=== PATIENT | male | born 1945 | race Caucasian/White ===

== ENCOUNTER 2020-10-06 08:57 | Outpatient (REF) | payer MEDICARE, SELFPAY ==
[2020-10-06 10:51] LABS: Anion Gap 15 (12-20); Blood Urea Nitrogen 19 mg/dL (9-16); Calcium 9.1 mg/dL (8.4-10.2); Carbon Dioxide 24 mmol/L (22-29); Chloride 108 mmol/L (96-108); Estimated Glomerular Filt Rate 41; Phosphorus 3.2 mg/dL (2.7-4.5); Potassium 4.5 mmol/L (3.3-5.1); Sodium 142 mmol/L (135-145)
[2020-10-06 11:17] LABS: Renal w Reflex Lab Use Only Order verified
[2020-10-07 12:22] LABS: Calcium (PTHI) 9.6 mg/dL (8.6-10.3); PTHI 64 pg/mL (14-64)
== END 2020-10-06 08:58 | disposition home or self-care (01) ==
LOC: HO.10HDL 08:57
PROVIDERS: Visit Provider Internal Medicine Nephrology
DX: R79.9 Abnormal finding of blood chemistry, unspecified (principal); I12.9 Hypertensive chronic kidney disease with stage 1 through stage 4 chronic kidney disease, or unspecified chronic kidney disease; N18.30 Chronic kidney disease, stage 3 unspecified
CPT/HCPCS: 36415; 80051; 82310; 82565; 83970; 84100; 84520

== ENCOUNTER 2021-06-04 08:56 | Outpatient (REF) | payer MEDICARE, SELFPAY ==
[2021-06-04 10:31] LABS: Creatinine Urine 118.61 mg/dL; Protein/Creatinine Ratio, Ur 0.83 (<0.2); Total Protein Urine Random 99 mg/dL (<12)
[2021-06-04 10:33] LABS: Anion Gap 13 (12-20); Blood Urea Nitrogen 20 mg/dL (9-16); Calcium 9.5 mg/dL (8.4-10.2); Carbon Dioxide 25 mmol/L (22-29); Chloride 108 mmol/L (96-108); Estimated Glomerular Filt Rate 35; Phosphorus 3.2 mg/dL (2.7-4.5); Potassium 4.2 mmol/L (3.3-5.1); Sodium 142 mmol/L (135-145)
[2021-06-04 14:19] LABS: Uric Acid 6.7 mg/dL (3.4-7.0)
[2021-06-05 16:02] LABS: Calcium (PTHI) 9.4 mg/dL (8.6-10.3); PTHI 60 pg/mL (14-64)
== END 2021-06-04 08:57 | disposition home or self-care (01) ==
LOC: HO.10HDL 08:56
PROVIDERS: Visit Provider Internal Medicine Nephrology
DX: N18.31 Chronic kidney disease, stage 3a (principal); E79.0 Hyperuricemia without signs of inflammatory arthritis and tophaceous disease
CPT/HCPCS: 36415; 80051; 82310; 82565; 83970; 84100; 84156; 84520; 84550

== ENCOUNTER 2021-06-16 10:19 | Outpatient (REF) | payer MEDICARE, SELFPAY ==
[2021-06-16 10:23] LABS: MANUAL DIFF FLAG NO
[2021-06-16 10:41] LABS: Basophils Absolute Auto 0.1 X10*3/uL (0.0-0.2); Eosinophils Absolute Auto 0.4 X10*3/uL (0.0-0.4); Eosinophils Percent Auto 6.2 % (0-4); Hematocrit 53.1 % (42.0-52.0); Hemoglobin 17.6 g/dl (14.0-18.0); Imm Gran Abs Auto 0.03 X10*3/uL (0.00-0.03); Imm Gran Pct Auto 0.4 % (0.0-0.4); Lymphocytes Absolute Auto 2.1 X10*3/uL (1.2-4.9); Lymphocytes Percent Auto 29.9 % (20-40); Mean Corpuscular HGB Conc 33.1 g/dl (31.0-36.0); Mean Corpuscular Hemoglobin 29.1 pg (27.0-33.0); Mean Corpuscular Volume 87.9 fL (80.0-98.0); Mean Platelet Volume 10.6 fL (9.4-12.4); Monocytes Absolute Auto 0.6 X10*3/uL (0.1-1.2); Monocytes Percent Auto 8.5 % (2-11); Neutrophils Absolute Auto 3.7 x10*3/uL (2.0-8.3); Platelet Count 291 X10*3/uL (160-400); Red Blood Count 6.04 X10*6/uL (4.60-5.80); Red Cell Distribution Width 14.2 % (11.0-16.0); White Blood Count 6.9 X10*3/uL (4.8-10.8)
[2021-06-16 11:00] LABS: Alanine Aminotransferase 20 U/L (0-40); Albumin Level 3.6 g/dL (3.5-5.0); Alkaline Phosphatase 75 U/L (39-117); Anion Gap 11 (12-20); Aspartate Amino Transferase 19 U/L (5-37); Blood Urea Nitrogen 19 mg/dL (9-16); Calcium 9.6 mg/dL (8.4-10.2); Carbon Dioxide 28 mmol/L (22-29); Chloride 108 mmol/L (96-108); Cholesterol 179 mg/dL; Estimated Glomerular Filt Rate 38; Glucose Fasting 90 mg/dL (60-99); HDL Cholesterol 44 mg/dL; LDL Cholesterol Calculated 117 mg/dl; Potassium 4.3 mmol/L (3.3-5.1); Sodium 143 mmol/L (135-145); Triglycerides 90 mg/dL
[2021-06-16 11:07] LABS: Appearance Urine CLEAR; Color Urine YELLOW; Glucose Urine UA NEG (NEG); Leukocyte Esterase Urine NEG (NEG); Nitrite Urine NEG (NEG); Specific Gravity - Urine 1.025 (1.005-1.025); Urine Blood NEG (NEG); Urine Ketones NEG (NEG); Urine Protein 2+ MG/DL (NEG-TRACE)
[2021-06-16 11:22] LABS: PSA,Total (Free>4and<10) 0.42 ng/mL (0.00-4.00)
[2021-06-16 11:28] LABS: Bacteria Urine TRACE /LPF; Mucus Urine 1+ /LPF; RBC Urine 0-2 /HPF (0); Squamous Epithelial Cell Urine 1+ /LPF; WBC Urine 0-2 /HPF (0-4)
== END 2021-06-16 10:20 | disposition home or self-care (01) ==
LOC: HO.LNP 10:19
PROVIDERS: Visit Provider Internal Medicine
DX: Z00.00 Encounter for general adult medical examination without abnormal findings (principal); Z12.5 Encounter for screening for malignant neoplasm of prostate; R79.89 Other specified abnormal findings of blood chemistry; I10 Essential (primary) hypertension
CPT/HCPCS: 80053; 80061; 81001; 81003; 84153; 85025

== ENCOUNTER 2021-12-08 10:01 | Outpatient (REF) | payer MEDICARE, SELFPAY ==
[2021-12-08 10:59] LABS: Anion Gap 10 (12-20); Blood Urea Nitrogen 15 mg/dL (9-16); Calcium 9.3 mg/dL (8.4-10.2); Carbon Dioxide 30 mmol/L (22-29); Chloride 107 mmol/L (96-108); Estimated Glomerular Filt Rate 40; Potassium 4.1 mmol/L (3.3-5.1); Sodium 143 mmol/L (135-145); Uric Acid 5.8 mg/dL (3.4-7.0)
== END 2021-12-08 10:02 | disposition home or self-care (01) ==
LOC: HO.10HDL 10:01
PROVIDERS: Visit Provider Internal Medicine Nephrology
DX: N18.31 Chronic kidney disease, stage 3a (principal)
CPT/HCPCS: 36415; 80051; 82310; 82565; 84520; 84550

== ENCOUNTER 2022-08-23 10:53 | Outpatient (REF) | payer MEDICARE, SELFPAY ==
[2022-08-23 11:00] LABS: MANUAL DIFF FLAG NO
[2022-08-23 11:29] LABS: Appearance Urine Clear; Color Urine Yellow; Glucose Urine UA Negative (Negative); Leukocyte Esterase Urine Negative (Negative); Nitrite Urine Negative (Negative); PH 6.5 (5.0-9.0); Specific Gravity - Urine 1.015 (1.005-1.025); UMIC TRIGGER UACC YES; Urine Blood Negative (Negative); Urine Ketones Negative (Negative); Urine Protein 300 (3+) mg/dL (Neg-Trace)
[2022-08-23 11:32] LABS: Bacteria Urine None Seen (None Seen); Hyaline Casts Urine 0-2 /LPF (0-2); RBC Urine 0-2 /HPF (0-2); Squamous Epithelial Cell Urine 0-2 /HPF (0-2); WBC Urine 0-5 /HPF (0-5)
[2022-08-23 12:16] LABS: Basophils Absolute Auto 0.1 X10*3/uL (0.0-0.2); Eosinophils Absolute Auto 0.6 X10*3/uL (0.0-0.4); Eosinophils Percent Auto 11.1 % (0-4); Hematocrit 49.9 % (42.0-52.0); Hemoglobin 16.4 g/dl (14.0-18.0); Imm Gran Abs Auto 0.02 X10*3/uL (0.00-0.03); Imm Gran Pct Auto 0.4 % (0.0-0.4); Lymphocytes Absolute Auto 1.8 X10*3/uL (1.2-4.9); Lymphocytes Percent Auto 33.8 % (20-40); Mean Corpuscular HGB Conc 32.9 g/dl (31.0-36.0); Mean Corpuscular Hemoglobin 29.3 pg (27.0-33.0); Mean Corpuscular Volume 89.1 fL (80.0-98.0); Mean Platelet Volume 11.3 fL (9.4-12.4); Monocytes Absolute Auto 0.9 X10*3/uL (0.1-1.2); Monocytes Percent Auto 16.8 % (2-11); Neutrophils Absolute Auto 1.9 x10*3/uL (2.0-8.3); Neutrophils Percent Auto 36.9 % (45-73); Platelet Count 219 X10*3/uL (160-400); Red Cell Distribution Width 15.5 % (11.0-16.0); White Blood Count 5.2 X10*3/uL (4.8-10.8)
[2022-08-23 12:25] LABS: Alanine Aminotransferase 20 U/L (0-40); Albumin Level 3.6 g/dL (3.5-5.0); Alkaline Phosphatase 65 U/L (39-117); Anion Gap 12 (12-20); Aspartate Amino Transferase 22 U/L (5-37); Bilirubin Total 0.7 mg/dL (0.0-1.0); Blood Urea Nitrogen 19 mg/dL (9-16); Carbon Dioxide 28 mmol/L (22-29); Chloride 107 mmol/L (96-108); Cholesterol 175 mg/dL; Estimated Glomerular Filt Rate 35; Glucose Fasting 100 mg/dL (60-99); HDL Cholesterol 38 mg/dL; LDL Cholesterol Calculated 119 mg/dl; Potassium 4.2 mmol/L (3.3-5.1); Sodium 143 mmol/L (135-145); Total Protein 5.7 g/dL (6.5-8.0); Triglycerides 92 mg/dL
[2022-08-23 12:32] LABS: PSA,Total (Free>4and<10) 0.41 ng/mL (0.00-4.00)
== END 2022-08-23 10:54 | disposition home or self-care (01) ==
LOC: HO.LNP 10:53
PROVIDERS: Visit Provider Internal Medicine
DX: Z00.00 Encounter for general adult medical examination without abnormal findings (principal); I12.9 Hypertensive chronic kidney disease with stage 1 through stage 4 chronic kidney disease, or unspecified chronic kidney disease; N18.2 Chronic kidney disease, stage 2 (mild); Z12.5 Encounter for screening for malignant neoplasm of prostate
CPT/HCPCS: 80053; 80061; 81001; 84153; 85025

== ENCOUNTER 2022-08-31 11:21 | Outpatient (REF) | payer MEDICARE, SELFPAY ==
--- NOTE | ~2022-08-31 | XR_ITS ---
EXAMINATION: XR CHEST CLINICAL INFORMATION: Wheezing. COMPARISON: None TECHNIQUE: 2 views of the chest were obtained. FINDINGS: The lungs are hyperinflated but clear. The heart size and pulmonary vascularity is normal. There is a right C7 cervical rib. Mild to moderate spondylosis dorsal spine is noted.. XR/XR chest 2V IMPRESSION: Hyperinflated lungs without acute process.
== END 2022-08-31 11:22 | disposition home or self-care (01) ==
LOC: HO.XRAY 11:21
PROVIDERS: PCP Internal Medicine; Visit Provider Internal Medicine
DX: R06.2 Wheezing (principal)
CPT/HCPCS: 71046

== ENCOUNTER 2022-08-31 15:58 | Outpatient (REF) | payer MEDICARE, SELFPAY ==
[2022-08-31 16:10] LABS: MANUAL DIFF FLAG NO
[2022-08-31 17:06] LABS: Basophils Absolute Auto 0.1 X10*3/uL (0.0-0.2); Basophils Percent Auto 0.9 % (0-2); Eosinophils Absolute Auto 0.5 X10*3/uL (0.0-0.4); Eosinophils Percent Auto 7.3 % (0-4); Hematocrit 49.5 % (42.0-52.0); Imm Gran Abs Auto 0.02 X10*3/uL (0.00-0.03); Imm Gran Pct Auto 0.3 % (0.0-0.4); Lymphocytes Percent Auto 27.3 % (20-40); Mean Corpuscular HGB Conc 32.3 g/dl (31.0-36.0); Mean Corpuscular Hemoglobin 28.7 pg (27.0-33.0); Mean Corpuscular Volume 88.9 fL (80.0-98.0); Mean Platelet Volume 11.1 fL (9.4-12.4); Monocytes Absolute Auto 0.7 X10*3/uL (0.1-1.2); Monocytes Percent Auto 9.3 % (2-11); Neutrophils Absolute Auto 4.1 x10*3/uL (2.0-8.3); Neutrophils Percent Auto 54.9 % (45-73); Platelet Count 267 X10*3/uL (160-400); Red Blood Count 5.57 X10*6/uL (4.60-5.80); Red Cell Distribution Width 15.1 % (11.0-16.0); White Blood Count 7.4 X10*3/uL (4.8-10.8)
== END 2022-08-31 15:59 | disposition home or self-care (01) ==
LOC: HO.LNP 15:58
PROVIDERS: PCP Internal Medicine; Visit Provider Internal Medicine
DX: R79.89 Other specified abnormal findings of blood chemistry (principal)
CPT/HCPCS: 85025

== ENCOUNTER 2022-12-15 09:14 | Outpatient (REF) | payer MEDICARE, SELFPAY ==
[2022-12-15 11:28] LABS: Anion Gap 12 (12-20); Blood Urea Nitrogen 19 mg/dL (9-16); Calcium 9.9 mg/dL (8.4-10.2); Carbon Dioxide 27 mmol/L (22-29); Chloride 108 mmol/L (96-108); Estimated Glomerular Filt Rate 40; Potassium 4.4 mmol/L (3.3-5.1); Sodium 143 mmol/L (135-145); Uric Acid 6.6 mg/dL (3.4-7.0)
== END 2022-12-15 09:15 | disposition home or self-care (01) ==
LOC: HO.10HDL 09:14
PROVIDERS: Visit Provider Internal Medicine Nephrology
DX: E79.0 Hyperuricemia without signs of inflammatory arthritis and tophaceous disease (principal); I12.9 Hypertensive chronic kidney disease with stage 1 through stage 4 chronic kidney disease, or unspecified chronic kidney disease; N18.31 Chronic kidney disease, stage 3a
CPT/HCPCS: 36415; 80051; 82310; 82565; 84520; 84550

== ENCOUNTER 2023-08-01 08:47 | Outpatient (REF) | payer MEDICARE, SELFPAY ==
[2023-08-01 11:17] LABS: Anion Gap 13 (12-20); Blood Urea Nitrogen 21 mg/dL (9-16); Calcium 9.5 mg/dL (8.4-10.2); Carbon Dioxide 28 mmol/L (22-29); Chloride 107 mmol/L (96-108); Estimated Glomerular Filt Rate 34; Potassium 4.2 mmol/L (3.3-5.1); Sodium 144 mmol/L (135-145)
== END 2023-08-01 08:48 | disposition home or self-care (01) ==
LOC: HO.10HDL 08:47
PROVIDERS: Referring Provider Internal Medicine Nephrology; Visit Provider Internal Medicine Nephrology
DX: N18.31 Chronic kidney disease, stage 3a (principal); I12.9 Hypertensive chronic kidney disease with stage 1 through stage 4 chronic kidney disease, or unspecified chronic kidney disease
CPT/HCPCS: 36415; 80051; 82310; 82565; 84520

== ENCOUNTER 2023-08-26 11:57 | Outpatient (REF) | payer MEDICARE, SELFPAY ==
[2023-08-26 12:10] LABS: MANUAL DIFF FLAG NO
[2023-08-26 13:20] LABS: Basophils Absolute Auto 0.1 X10*3/uL (0.0-0.2); Basophils Percent Auto 1.1 % (0-2); Eosinophils Absolute Auto 0.4 X10*3/uL (0.0-0.4); Eosinophils Percent Auto 6.1 % (0-4); Hematocrit 50.5 % (42.0-52.0); Hemoglobin 16.8 g/dl (14.0-18.0); Imm Gran Abs Auto 0.02 X10*3/uL (0.00-0.03); Imm Gran Pct Auto 0.3 % (0.0-0.4); Lymphocytes Absolute Auto 1.6 X10*3/uL (1.2-4.9); Lymphocytes Percent Auto 25.7 % (20-40); Mean Corpuscular HGB Conc 33.3 g/dl (31.0-36.0); Mean Corpuscular Hemoglobin 29.3 pg (27.0-33.0); Mean Corpuscular Volume 88.1 fL (80.0-98.0); Mean Platelet Volume 10.4 fL (9.4-12.4); Monocytes Absolute Auto 0.6 X10*3/uL (0.1-1.2); Monocytes Percent Auto 8.9 % (2-11); Neutrophils Absolute Auto 3.6 x10*3/uL (2.0-8.3); Neutrophils Percent Auto 57.9 % (45-73); Platelet Count 233 X10*3/uL (160-400); Red Blood Count 5.73 X10*6/uL (4.60-5.80); Red Cell Distribution Width 14.6 % (11.0-16.0); White Blood Count 6.3 X10*3/uL (4.8-10.8)
[2023-08-26 13:31] LABS: Appearance Urine Clear; Color Urine Yellow; Glucose Urine UA Negative (Negative); Leukocyte Esterase Urine Negative (Negative); Nitrite Urine Negative (Negative); PH 6.5 (5.0-9.0); Specific Gravity - Urine 1.015 (1.005-1.025); UMIC TRIGGER UACC YES; Urine Blood Negative (Negative); Urine Ketones Negative (Negative); Urine Protein 100 (2+) mg/dL (Neg-Trace)
[2023-08-26 13:34] LABS: Bacteria Urine None Seen (None Seen); Hyaline Casts Urine 0-2 /LPF (0-2); RBC Urine 0-2 /HPF (0-2); Squamous Epithelial Cell Urine 0-2 /HPF (0-2); WBC Urine 0-5 /HPF (0-5)
[2023-08-26 14:01] LABS: Alanine Aminotransferase 13 U/L (0-40); Albumin Level 3.5 g/dL (3.5-5.0); Alkaline Phosphatase 62 U/L (39-117); Anion Gap 11 (12-20); Aspartate Amino Transferase 17 U/L (5-37); Bilirubin Total 0.9 mg/dL (0.0-1.0); Blood Urea Nitrogen 19 mg/dL (9-16); Calcium 9.3 mg/dL (8.4-10.2); Carbon Dioxide 28 mmol/L (22-29); Chloride 110 mmol/L (96-108); Cholesterol 171 mg/dL (<200); Estimated Glomerular Filt Rate 40; Glucose Fasting 92 mg/dL (60-99); HDL Cholesterol 41 mg/dL (>40); LDL Cholesterol Calculated 116 mg/dL (<100); Potassium 4.5 mmol/L (3.3-5.1); Sodium 144 mmol/L (135-145); Total Protein 5.9 g/dL (6.5-8.0); Triglycerides 74 mg/dL (<150)
[2023-08-26 14:19] LABS: PSA,Total (Free>4and<10) 0.36 ng/mL (0.00-4.00)
== END 2023-08-26 11:58 | disposition home or self-care (01) ==
LOC: HO.LNP 11:57
PROVIDERS: Visit Provider Internal Medicine
DX: Z00.00 Encounter for general adult medical examination without abnormal findings (principal); Z12.5 Encounter for screening for malignant neoplasm of prostate; I12.9 Hypertensive chronic kidney disease with stage 1 through stage 4 chronic kidney disease, or unspecified chronic kidney disease; N18.2 Chronic kidney disease, stage 2 (mild)
CPT/HCPCS: 80053; 80061; 81001; 84153; 85025

== ENCOUNTER 2024-02-13 07:46 | Outpatient (REF) | payer MEDICARE, SELFPAY ==
[2024-02-13 10:36] LABS: MANUAL DIFF FLAG NO
[2024-02-13 10:45] LABS: Basophils Absolute Auto 0.1 X10*3/uL (0.0-0.2); Basophils Percent Auto 1.1 % (0-2); Eosinophils Absolute Auto 0.4 X10*3/uL (0.0-0.4); Eosinophils Percent Auto 5.9 % (0-4); Hematocrit 48.5 % (42.0-52.0); Hemoglobin 16.4 g/dl (14.0-18.0); Imm Gran Abs Auto 0.02 X10*3/uL (0.00-0.03); Imm Gran Pct Auto 0.3 % (0.0-0.4); Lymphocytes Absolute Auto 1.7 X10*3/uL (1.2-4.9); Lymphocytes Percent Auto 26.8 % (20-40); Mean Corpuscular HGB Conc 33.8 g/dl (31.0-36.0); Mean Corpuscular Hemoglobin 29.7 pg (27.0-33.0); Mean Corpuscular Volume 87.7 fL (80.0-98.0); Mean Platelet Volume 10.4 fL (9.4-12.4); Monocytes Absolute Auto 0.6 X10*3/uL (0.1-1.2); Monocytes Percent Auto 9.6 % (2-11); Neutrophils Absolute Auto 3.5 x10*3/uL (2.0-8.3); Neutrophils Percent Auto 56.3 % (45-73); Platelet Count 221 X10*3/uL (160-400); Red Blood Count 5.53 X10*6/uL (4.60-5.80); Red Cell Distribution Width 14.2 % (11.0-16.0); White Blood Count 6.3 X10*3/uL (4.8-10.8)
[2024-02-13 10:58] LABS: Appearance Urine Clear; Color Urine Yellow; Glucose Urine UA Negative (Negative); Leukocyte Esterase Urine Negative (Negative); Nitrite Urine Negative (Negative); Specific Gravity - Urine 1.015 (1.005-1.025); UMIC TRIGGER UA YES; Urine Blood Negative (Negative); Urine Ketones Negative (Negative); Urine Protein 100 (2+) mg/dL (Neg-Trace)
[2024-02-13 11:11] LABS: Bacteria Urine None Seen (None Seen); Hyaline Casts Urine 0-2 /LPF (0-2); RBC Urine 0-2 /HPF (0-2); Squamous Epithelial Cell Urine 0-2 /HPF (0-2); WBC Urine 0-5 /HPF (0-5)
[2024-02-13 11:23] LABS: Albumin Level 3.6 g/dL (3.5-5.0); Anion Gap 10 (12-20); Blood Urea Nitrogen 18 mg/dL (9-16); Calcium 9.6 mg/dL (8.4-10.2); Carbon Dioxide 27 mmol/L (22-29); Chloride 109 mmol/L (96-108); Estimated Glomerular Filt Rate 39; Magnesium 1.9 mg/dL (1.6-2.6); Sodium 142 mmol/L (135-145); Vitamin D 25-OH Total 46.4 ng/mL (>30)
[2024-02-13 11:24] LABS: Parathyroid Hormone Intact 104.6 pg/mL (8.7-77.1)
[2024-02-13 11:30] LABS: Creatinine Urine 107.17 mg/dL; Total Protein Urine Random 75 mg/dL (<12)
[2024-02-13 11:55] LABS: Microalbum/Creatinine Ratio Ur 504.8 ug/mg cr (<30)
== END 2024-02-13 07:47 | disposition home or self-care (01) ==
LOC: HO.10HDL 07:46
PROVIDERS: Visit Provider Internal Medicine Nephrology
DX: I12.9 Hypertensive chronic kidney disease with stage 1 through stage 4 chronic kidney disease, or unspecified chronic kidney disease (principal); N18.31 Chronic kidney disease, stage 3a
CPT/HCPCS: 36415; 80051; 81001; 82040; 82043; 82306; 82310; 82565; 82570; 83735; 83970; 84100; 84156; 84520; 85025

== ENCOUNTER 2024-09-04 10:27 | Outpatient (REF) | payer MEDICARE, SELFPAY ==
[2024-09-04 10:30] LABS: MANUAL DIFF FLAG NO
[2024-09-04 10:54] LABS: Appearance Urine Clear; Basophils Absolute Auto 0.1 X10*3/uL (0.0-0.2); Basophils Percent Auto 1.1 % (0-2); Color Urine Dark Yellow; Eosinophils Absolute Auto 0.4 X10*3/uL (0.0-0.4); Eosinophils Percent Auto 5.9 % (0-4); Glucose Urine UA Negative (Negative); Hematocrit 47.2 % (42.0-52.0); Hemoglobin 15.9 g/dl (14.0-18.0); Imm Gran Abs Auto 0.04 X10*3/uL (0.00-0.03); Imm Gran Pct Auto 0.6 % (0.0-0.4); Leukocyte Esterase Urine Negative (Negative); Lymphocytes Absolute Auto 1.6 X10*3/uL (1.2-4.9); Lymphocytes Percent Auto 24.4 % (20-40); Mean Corpuscular HGB Conc 33.7 g/dl (31.0-36.0); Mean Corpuscular Hemoglobin 30.2 pg (27.0-33.0); Mean Corpuscular Volume 89.6 fL (80.0-98.0); Mean Platelet Volume 10.1 fL (9.4-12.4); Monocytes Absolute Auto 0.6 X10*3/uL (0.1-1.2); Monocytes Percent Auto 9.5 % (2-11); Neutrophils Absolute Auto 3.8 x10*3/uL (2.0-8.3); Neutrophils Percent Auto 58.5 % (45-73); Nitrite Urine Negative (Negative); PH 5.5 (5.0-9.0); Platelet Count 262 X10*3/uL (160-400); Red Blood Count 5.27 X10*6/uL (4.60-5.80); Red Cell Distribution Width 14.6 % (11.0-16.0); UMIC TRIGGER UACC YES; Urine Blood Negative (Negative); Urine Ketones Negative (Negative); Urine Protein 100 (2+) mg/dL (Neg-Trace); White Blood Count 6.4 X10*3/uL (4.8-10.8)
[2024-09-04 11:00] LABS: Bacteria Urine None Seen (None Seen); Hyaline Casts Urine 0-2 /LPF (0-2); RBC Urine 0-2 /HPF (0-2); Squamous Epithelial Cell Urine 0-2 /HPF (0-2); WBC Urine 0-5 /HPF (0-5)
[2024-09-04 11:17] LABS: Alanine Aminotransferase 18 U/L (0-40); Albumin Level 3.3 g/dL (3.5-5.0); Alkaline Phosphatase 63 U/L (39-117); Anion Gap 10 (12-20); Aspartate Amino Transferase 22 U/L (5-37); Bilirubin Total 0.8 mg/dL (0.0-1.0); Blood Urea Nitrogen 19 mg/dL (9-16); Calcium 9.2 mg/dL (8.4-10.2); Carbon Dioxide 27 mmol/L (22-29); Chloride 112 mmol/L (96-108); Cholesterol 156 mg/dL (<200); Estimated Glomerular Filt Rate 41; Glucose Fasting 91 mg/dL (60-99); HDL Cholesterol 42 mg/dL (>40); LDL Cholesterol Calculated 102 mg/dL (<100); Potassium 4.3 mmol/L (3.3-5.1); Sodium 145 mmol/L (135-145); Triglycerides 64 mg/dL (<150)
[2024-09-04 11:26] LABS: PSA,Total (Free>4and<10) 0.46 ng/mL (0.00-4.00)
--- OUTSIDE RECORDS SUMMARY | 2024-09-04 12:29 | XMS_ITS | Patient Health Record ---
Author Organization Brandon Kim MD Address [address] [place], [place] [id number] Care Team Providers Care Computer Tech Name Role Phone Brandon Kim Primary Care Provider Allergies No Known Allergies Results Component Value Reference Range Notes Complete Blood Count Auto Di ff (Not yet reviewed by provider) Interpretation: Performing Lab:[facility], [address] [place] [phone] Notes/Report: White Blood Count 6.4 4.8-10.8 X10*3/uL Red Blood Count 5.27 4.60-5.80 X10*6/uL Hemoglobin 15.9 14.0-18.0 g/dl Hematocrit 47.2 42.0-52.0 % Mean Corpuscular Volume 89.6 80.0-98.0 fL Mean Corpuscular Hemoglobin 30.2 27.0-33.0 pg Mean Corpuscular HGB Conc 33.7 31.0-36.0 g/dl Red Cell Distribution Width 14.6 11.0-16.0 % Platelet Count 262 160-400 X10*3/uL Mean Platelet Volume 10.1 9.4-12.4 fL Neutrophils Percent Auto 58.5 45-73 % Imm Gran Pct Auto 0.6 0.0-0.4 % Lymphocytes Percent Auto 24.4 20-40 % Monocytes Percent Auto 9.5 2-11 % Eosinophils Percent Auto 5.9 0-4 % Basophils Percent Auto 1.1 0-2 % NRBC Pct Auto 0.0 0.0-0.2 /100WBC Neutrophils Absolute Auto 3.8 2.0-8.3 x10*3/u L Imm Gran Abs Auto 0.04 0.00-0.03 X10*3/uL Lymphocytes Absolute Auto 1.6 1.2-4.9 X10*3/u L Monocytes Absolute Auto 0.6 0.1-1.2 X10*3/uL Eosinophils Absolute Auto 0.4 0.0-0.4 X10*3/u L Basophils Absolute Auto 0.1 0.0-0.2 X10*3/uL NRBC Abs Auto 0.000 0.0-0.012 X10*3/uL Comprehensive [place]. Panel Fa st (Not yet reviewed by provider) Interpretation: Performing Lab:[facility], [address] [place] [phone] Notes/Report: Sodium 145 135-145 mmol/L Potassium 4.3 3.3-5.1 mmol/L Chloride 112 96-108 mmol/L Carbon Dioxide 27 22-29 mmol/L Anion Gap 10 12-20 Blood Urea Nitrogen 19 9-16 mg/dL Creatinine 1.63 0.5-1.4 mg/dL Estimated Glomerular Filt Rate 41 Chronic Kidney Disease: Estimated GFR < 60 mL/min/1.73m2 Severe Kidney Disease: Estimated GFR < 15 mL/min/1.73m2 Glucose Fasting 91 60-99 mg/dL Calcium 9.2 8.4-10.2 mg/dL Bilirubin Total 0.8 0.0-1.0 mg/dL Aspartate Amino Transferase 22 5-37 U/L Alanine Aminotransferase 18 0-40 U/L Total Protein 6.0 6.5-8.0 g/dL Albumin Level 3.3 3.5-5.0 g/dL Alkaline Phosphatase 63 39-117 U/L UA ClnCatch+Micro w/rflx Cul t (Not yet reviewed by provider) Interpretation: Performing Lab:[facility], [address] [place] [phone] Notes/Report: Urine, Clean Catch Color Urine Dark Yellow Appearance Urine Clear PH 5.5 5.0-9.0 Glucose Urine UA Negative Negative mg/dL Urine Blood Negative Negative Specific [place] - Urine 1.020 1.005-1.025 Urine Protein 100 (2+) Neg-Trace mg/dL Urine Ketones Negative Negative mg/dL Nitrite Urine Negative Negative Leukocyte Esterase Urine Negative Negative RBC Urine 0-2 0-2 /HPF WBC Urine 0-5 0-5 /HPF Squamous Epithelial Cell Urine 0-2 0-2 /HPF Bacteria Urine None Seen None Seen Hyaline Casts Urine 0-2 0-2 /LPF Lipid Panel Reviewed date:09/04/2024 12:28:44 PM Interpretation: Performing Lab:[facility], [address] [place] [phone] Notes/Report: Triglycerides 64 <150 mg/dL Desirable Triglyceride: less than 150 mg/dL Borderline High Triglyceride 150-199 mg/dL High Triglyceride: 200-499 mg/dL Very High Triglyceride: greater than or equal to 5OO mg/dL Cholesterol 156 <200 mg/dL Desirable Cholesterol: less than 200 mg/dL Borderline High Cholesterol: 200-239 mg/dL High Cholesterol: greater than 239 mg/dL LDL Cholesterol Calculated 102 <100 mg/dL Desirable LDL: less than 100 mg/dL Near Optimal/Above Optimal LDL: 110-129 mg/dL Borderline High LDL: 130-159 mg/dL High LDL: 160-189 mg/dL Very High LDL: greater than or equal to 190 mg/dL HDL Cholesterol 42 >40 mg/dL Desirable HDL: greater than 40 mg/dL Note: This HDL assay may give artificially low results in patients with liver disease. PSA,Total (Free>4and<10) Reviewed date:09/04/2024 12:24:21 PM Interpretation: Performing Lab:[facility], [address] [place] [phone] Notes/Report: PSA,Total (Free>4and<10) 0.46 0.00-4.00 ng/mL A Free PSA was not performed: The percentage of Free PSA can be used to enhance the differentiation of prostate cancer from benign prostatic disease in subjects whose PSA levels are between 4.0 and 10.0 ng/mL. For subjects whose PSA levels are below 4.0 or above 10.0 ng/mL, the risk of prostate cancer is determined on the basis of the PSA alone. Therefore the % Free PSA is recommended only for those subjects whose PSA levels are between 4.0 and 10.0 ng/mL. PSA methodology: [place] Alinity i Chemiluminescent Microparticle Immunoassay (CMIA) Reason For Referral Reason HIP PAIN, RIGHT Diagnosis 1 Hip pain, right (M25 .551) Referral Organization Brandon Kim MD Referring Provider First Name Brandon Referring Provider Last Name Julio Referring Provider Speciality Internal M edicine Referred Provider DIANNA MCCLELLAND ORTHOPCarter DICS Referred Provider Specialty Orthopedic S urgery General Notes Elif Perla 11:56:03 AM EDT > appt is to be with Minda Estevez Annette 03/05/2024 10:33:11 AM EDT > info faxed , Danae Goncalves 03/09/2024 09:27:50 AM EDT > APPT SCHEDULED FOR 03/12/24 AT 2PM FOR HIP EVALUATION Referral Priority Routine Referral Appointment Date 03/12/2024 Reason KNEE PAIN Diagnosis 1 Arthritis of knee (M 17.10) Referral Organization Brandon Kim MD Referring Provider First Name Brandon Referring Provider Last Name Julio Referring Provider Speciality Internal M edicine Referred Provider AXEL FELIXS Referred Provider [facility] General Notes Danae Goncalves 03/09/2024 09:29:51 AM EDT > APPT SCHEDULED FOR KNEE PAIN EVAL 04/16/24Ivanna Patti A 04/30/2024 02:43:15 PM EST > OFFICE NOTE RECD Referral Priority Routine Referral Appointment Date 04/16/2024 Medications Medication SIG (Take, Route, Frequency, Duration) Notes Start Date End Date Status Carvedilol 12.5 MG TAKE 1 TABLET BY TWICE A DAY WITH FOOD for 90 Active Albuterol Sulfate HFA 108 (90 Base) MCG/ACT 1 puff as needed Inhalation every 4 hrs for 30 days 08/31/2022 Not-Taking Allopurinol 100 MG 1 tablet Orally Once a day Active Indomethacin 50 MG TAKE ONE CAPSULE BY MOUTH 3 TIMES A DAY WITH FOOD for 10 Not-Taking traMADol HCl 50 MG 1 tablet as needed Orally every 8 hours as needed for 5 days 03/13/2019 Not-Taking Ibuprofen 200 MG 1 tablet with food o r milk as needed Orally Three times a day Not-Taking Immunizations Vaccine Route Administration Date Status Comme nts DECLINED, FLU Unknown 01/09/2013 Administered DECLINED, PNEUMO Unknown 01/09/2013 Administered Shingles IM Intramuscular 10/09/2015 Administered PPSV23 (Pnemovax) IM Intramuscular 01/14/2020 Administered SARS-COV-2 Moderna Unknown 08/20/2020 Administered SARS-COV-2 Moderna Unknown 09/17/2020 Administered SARS-COV-2 Moderna Unknown 04/30/2021 Administered Fluarix Quadrivalent IM Intramuscular 06/16/2021 Administe red TDaP Unknown 11/30/2021 Administered [facility] Influenza High Dose IM Intramuscular 03/07/2023 Administer ed PPSV23 (Pnemovax) Unknown 09/03/2014 Refused Flu Vaccine Unknown 09/03/2014 Refused Flu Vaccine Unknown 03/25/2015 Refused Fluarix Quadrivalent Unknown 03/30/2016 Refused PPSV23 (Pnemovax) Unknown 04/09/2016 Refused Fluarix Quadrivalent Unknown 04/19/2017 Refused Prevnar 13 Unknown 04/25/2017 Refused PPSV23 (Pnemovax) Unknown 10/24/2017 Refused Fluarix Quadrivalent Unknown 05/01/2018 Refused Fluarix Quadrivalent Unknown 05/14/2019 Refused PPSV23 (Pnemovax) Unknown 05/22/2019 Refused TDaP Unknown 05/22/2019 Refused Influenza High Dose Unknown 04/01/2020 Pending At [facility] Social History Tobacco Use: Social History Observation Description Date Details (start date - stop date) Never Smoker NA - NA Tobacco Use/Smoking Question Answer Notes Patient is a nonsmoker Additional Findings: Tobacco Non-User Cu rrent non-smoker, currently using no form of tobacco Alcohol Screen Question Answer Notes Did you have a drink contain ing alcohol in the past year? Yes How often did you have a dri nk containing alcohol in the past year? Monthly or less (1 point) How many drinks did you have on a typical day when you were drinking in the past year? 1 or 2 drinks (0 point) How often did you have 6 or more drinks on one occasion in the past year? 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) Active confirmed Problem 616674878 History of gout (Z87.39) Active confirmed Problem 110019953 Chronic renal failure, stage 2 (mild) (N18.2) Active confirmed Problem 085543455 Arthritis of kne e (M17.10) Active confirmed Vital Signs Blood pressure diastolic 100 mm Hg 02/28/2024 khoi ght s up 3 pounds since 09-02-23 Height 71.5 in 02/28/2024 weight s up 3 p ounds since 09-02-23 Blood pressure systolic 148 mm Hg 02/28/2024 weig ht s up 3 pounds since 09-02-23 Weight 245 lbs 02/28/2024 weight s up 3 p ounds since 09-02-23 BMI 33.69 kg/m2 02/28/2024 weight s up 3 p ounds since 09-02-23 Encounters Encounter Location Date Provider Diagnosis Brandon Kim MD [address] [place] [address] Drive [address] [place] [id number] 09/03/2024 Brandon Kim Blood tests for routine general physical examination Z00.00 ; Essential hypertension I10 and Chronic renal failure, stage 2 (mild) N18.2 Brandon Kim MD [address] [place] [address] Drive [address] [place] [id number] 02/28/2024 Brandon Kim Arthritis of knee M17.10 ; Essential hypertension I10 ; Hip pain, right M25.551 ; Gout M10.9 and Chronic renal failure, stage 2 (mild) N18.2 Assessments Encounter Date Diagnosis (ICD Code) Assessment Notes Treatment Notes Treatment Clinical Notes Section Notes 09/03/2024 Blood tests for routine general physical examination (ICD-10 - Z00.00) 02/28/2024 Arthritis of knee (ICD-10 - M17.10) referral to dr mercado for knee and hip evaluation 02/28/2024 Essential hypertension (ICD-10 - I10) doing well. is a little high today but his readings at the [facility] have been good 09/03/2024 Essential hypertension (ICD-10 - I10) 02/28/2024 Hip pain, right (ICD-10 - M25.551) advised to see Ortho 09/03/2024 Chronic renal failure, stage 2 (mild) (ICD-10 - N18.2) 02/28/2024 Gout (ICD-10 - M10.9) has been doing great on allopurinal, will continue current regiment/ have once again explained that he should never stop and restart allopurinol 02/28/2024 Chronic renal failure, stage 2 (mild) (ICD-10 - N18.2) doing well with stable function Plan Of Treatment Pending Test Test Name Order Date Electrocardiogram (EKG) 04/09/2016 Electrocardiogram (EKG) 05/05/2018 Electrocardiogram (EKG) 04/01/2015 XR CHEST 2 VIEW PA & LAT 08/31/2022 Complete Blood Count Auto Diff 5 Comprehensive [place]. Panel Fast 5 UA ClnCatch+Micro w/rflx Cult 09/03/2024 Next Appt Details Provider Name:Brandonseth Antonio ier, 09/06/2024 11:00:00 AM, [address] [facility], [address], [place], [place], [id number], Insurance Providers Payer Name Payer Address Payer Phone Subscriber Number Group Number Insured Name Patient Relationship to Insured Coverage Start Date Coverage End Date [employer] [facility] [address] [place] [phone] [id number] [place] i Self - patient is the insured MEDICARE [employer] [address] [place] [address] [id number] [place]cho [place] i Self - patient is the insured Medical (General) History Medical History History ICD Code elevated cr of 1.6 since 2002 colonoscopy 06/25/13 - repeat 10 years ( Dr. Bang) Hx - arthritis of foot
--- OUTSIDE RECORDS SUMMARY | 2024-09-04 12:29 | XMS_ITS ---
Author Organization Brandon Kim MD Address [address] [place], [place] [phone] Care Team Providers Care Jacquard Card Cutter Name Role Phone Brandon Kim Primary Care Provider Results Component Value Reference Range Notes Complete Blood Count Auto Di ff (Not yet reviewed by provider) Interpretation: Performing Lab:[facility], [address] [place] [phone] Notes/Report: White Blood Count 6.4 4.8-10.8 X10*3/uL [...] NRBC Abs Auto 0.000 0.0-0.012 X10*3/uL Comprehensive [place]. Panel Fa st (Not yet reviewed by provider) Interpretation: Performing Lab:[facility], [address] [place] [address] Notes/Report: Sodium 145 135-145 mmol/L Potassium 4.3 [...] (Not yet reviewed by provider) Interpretation: Performing Lab:[facility], [address] [place] [phone] Notes/Report: Urine, Clean Catch Color Urine Dark Yellow Appearance Urine Clear PH 5.5 5.0-9.0 Glucose Urine UA Negative Negative mg/dL Urine Blood Negative Negative Specific [place] - Urine 1.020 1.005-1.025 Urine Protein 100 (2+) Neg-Trace mg/dL Urine Ketones Negative Negative mg/dL Nitrite Urine Negative Negative Leukocyte Esterase Urine Negative Negative RBC Urine 0-2 0-2 /HPF WBC Urine 0-5 0-5 /HPF Squamous Epithelial Cell Urine 0-2 0-2 /HPF Bacteria Urine None Seen None Seen Hyaline Casts Urine 0-2 0-2 /LPF Lipid Panel Reviewed date:09/04/2024 12:28:44 PM Interpretation: Performing Lab:[facility], [address] [place] [phone] Notes/Report: Triglycerides 64 <150 mg/dL Desirable Triglyceride: [...] (Free>4and<10) Reviewed date:09/04/2024 12:24:21 PM Interpretation: Performing Lab:[facility], [address] [place] [phone] Notes/Report: PSA,Total (Free>4and<10) 0.46 0.00-4.00 ng/mL A [...] [facility] Alinity i Chemiluminescent Microparticle Immunoassay (CMIA) REASON FOR VISIT yearly fasting labs Encounters Encounter Location Date Provider Diagnosis Brandon Kim MD [address] [place] [address] [address] [place], [place] [phone] 09/03/2024 Brandon Kim Blood tests for routine general physical examination Z00.00 ; Essential hypertension I10 and Chronic renal failure, stage 2 (mild) N18.2 Assessments Encounter Date Diagnosis (ICD Code) Assessment Notes Treatment Notes Treatment Clinical Notes Section Notes 09/03/2024 Blood tests for routine general physical examination (ICD-10 - Z00.00) 09/03/2024 Essential hypertension (ICD-10 - I10) 09/03/2024 Chronic renal failure, stage 2 (mild) (ICD-10 - N18.2) Plan Of Treatment Pending Test Test Name Order Date Complete Blood Count Auto Diff 5 Comprehensive [place]. Panel Fast 5 UA ClnCatch+Micro w/rflx Cult 09/03/2024 Next Appt Details Provider Name:Brandon Antonio ier, 09/06/2024 11:00:00 AM, [address] [facility], [address], [place], [place], [phone], Progress Notes * Poncho PATRICIADOB:[birth year] (79 yo M)Acc No.[id number]:09/03/2024 Progress Note Patient:?Poncho PATRICIA Provider:?Brandon Kim MD :1945???Age:79 Y???Sex:Male Yogesh e:09/03/2024 Address:[address] [place], [place] [phone] Subjective: * Chief Complaints: * ???1. Yearly fasting labs. * Medical History:? Objective: * Vitals:? Assessment: * Assessment: 1.?Blood tests for routine g eneral physical examination - Z00.00 (Primary)???2.?Essential hypertension - I10???3.?Chronic renal failure, stage 2 (mild) - N18.2??? Plan: * Treatment: 2.?Essential hypertension?LAB: Complete Blood Count Auto Diff (Collection Date & Time - 09/04/2024 07:30 AM) ?LAB: Comprehensive [place]. Panel Fast (Collection Date & Time - 09/04/2024 07:30 AM) ?LAB: UA ClnCatch+Micro w/rflx Cult (Collection Date & Time - 09/04/2024 07:30 AM) ?LAB: Lipid Panel (Collection Date & Time - 09/04/2024 07:30 AM) ?LAB: PSA,Total (Free>4and<10) (Collection Date & Time - 09/04/2024 07:30 AM) 3.?Chronic renal failure, st age 2 (mild)?LAB: Complete Blood Count Auto Diff (Collection Date & Time - 09/04/2024 07:30 AM) ?LAB: Comprehensive [place]. Panel Fast (Collection Date & Time - 09/04/2024 07:30 AM) ?LAB: UA ClnCatch+Micro w/rflx Cult (Collection Date & Time - 09/04/2024 07:30 AM) ?LAB: Lipid Panel (Collection Date & Time - 09/04/2024 07:30 AM) ?LAB: PSA,Total (Free>4and<10) (Collection Date & Time - 09/04/2024 07:30 AM) * Procedure Codes:?63817 VENIP UNCT, ROUTINE* * * The named appointment provid er may or may not be the originator of this progress note, and it is not deemed complete until electronically signed by the appointment provider. Sign off status: Pending * Provider:?Brandon Kim MD Date:?0 09/03/2024 Generated for Julio avendano/Jolene/eTransmitting on:?09/04/2024 12:29 PM EDT
--- OUTSIDE RECORDS SUMMARY | 2024-09-04 12:29 | XMS_ITS ---
Author Organization Brandon Kim MD Address [address] [place], [place] [id number] Care Team Providers Care Building Principal Name Role Phone Brandon Kim Primary Care Provider [phone] Allergies No Known Allergies Reason For Referral Reason HIP PAIN, RIGHT Diagnosis 1 Hip pain, right (M25 .551) Referral Organization Brandon Kim MD Referring Provider First Name Brandon Referring Provider Last Name Julio Referring Provider Speciality Internal M edicine Referred Provider AXEL FELIX Referred Provider Specialty Orthopedic S urgery General Notes Elif Perla 11:56:03 AM EDT > appt is to be with Minda Estevez Annette 03/05/2024 10:33:11 AM EDT > info faxed , Danae Goncalves 03/09/2024 09:27:50 AM EDT > APPT SCHEDULED FOR 03/12/24 AT 2PM FOR HIP EVALUATION Referral Priority Routine Referral Appointment Date 03/12/2024 REASON FOR VISIT 6 month, c/o bilateral knee pain and right hip pain Medications Medication SIG (Take, Route, Frequency, Duration) Notes Start Date End Date Status Albuterol Sulfate HFA 108 (90 Base) MCG/ACT [...] needed Orally Three times a day Not-Taking Carvedilol 12.5 MG TAKE 1 TABLET BY LUCY TH TWICE A DAY WITH FOOD Active Vital Signs Blood pressure systolic 148 mm Hg 02/28/20 24 Blood pressure diastolic 100 mm Hg 024 Height 71.5 in 02/28/2024 Weight 245 lbs 02/28/2024 BMI 33.69 kg/m2 02/28/2024 weight s up 3 pounds since Encounters Encounter Location Date Provider Diagnosis Brandon Kim MD [address] [place] [address] Drive [address] [place], [place] [id number] 02/28/2024 Brandon Kim Arthritis of knee M17.10 ; Essential hypertension I10 ; Hip pain, right M25.551 ; Gout M10.9 and Chronic renal failure, stage 2 (mild) N18.2 Assessments Encounter Date Diagnosis (ICD Code) Assessment Notes Treatment Notes Treatment Clinical Notes Section Notes 02/28/2024 Arthritis of knee (ICD-10 - M17.10) referral to dr mercado for knee and hip evaluation 02/28/2024 Essential hypertension (ICD-10 - I10) doing well. is a little high today but his readings at the [facility] have been good 02/28/2024 Hip pain, right (ICD-10 - M25.551) advised to see Ortho 02/28/2024 Gout (ICD-10 - M10.9) has been doing great on allopurinal, will continue current regiment/ have once again explained that he should never stop and restart allopurinol 02/28/2024 Chronic renal failure, stage 2 (mild) (ICD-10 - N18.2) doing well with stable function Plan Of Treatment Medication Medication Name Sig Start Date Stop Date Notes Allopurinol 100 MG 1 tablet Orally Once a day Carvedilol 12.5 MG TAKE 1 TABLET BY LUCY TH TWICE A DAY WITH FOOD Treatment Notes Assessment Notes Arthritis of knee referral to dr emma cantu for knee and hip evaluation Essential hypertension doing well. is a little high today but his readings at the [facility] have been good Hip pain, right advised to see Ortho Gout has been doing great on allopurinal, will continue current regiment/ have once again explained that he should never stop and restart allopurinol Chronic renal failure, stage 2 (mild) do ing well with stable function Referrals Referral Date Details 02/28/2024 02/28/2024, HIP PAIN , RIGHT, [facility] Next Appt Details Provider Name:Brandon Ocampo Arlenelennie ier, 09/06/2024 11:00:00 AM, [address], [address], [place], [phone], Progress Notes * BABS Poncho MeeksDOB:[birth year] (79 yo M)Acc No.[id number]:02/28/2024 Progress Notes Patient:?Babs Poncho Jeanna Provider:?Brandon Kim MD :1945???Age:79 Y???Sex:Male Yogesh e:02/28/2024 Address:[address] [place], [place] [phone] Subjective: * Chief Complaints: * ???6 monthC/o bilateral knee pain and right hip pain * HPI: ???Symptom(s):? patient is a 79 yo male here for 6 month follow up visit for bp. when standing and when he first gets up hip is painful. * ROS:?General/Constitutional:?Denies?Chills.?Denies?Fatigue.?Denies?Fever.?Denies?Headache.?ENT:?Patient denies?decreased sense of smell , any loss of taste , sore throat.?Denies?Sore throat.?Respiratory:?Denies?Cough.?Denies?Shortness of breath at rest.?Denies?Shortness of breath with exertion.?Gastrointestinal:?Denies?Diarrhea.?Denies?Nausea.?Musculoskeletal:?Patient denies?muscle aches.?Peripheral Vascular:?Patient denies?red and blue toes.? * Medical History:? * Surgical History:? * Hospitalization/Major Diagno stic Procedure:? * Medications:?TakingAllopurin ol 100 MG Tablet 1 tablet Orally Once a dayCarvedilol 12.5 MG Tablet TAKE 1 TABLET BY MOUTH TWICE A DAY WITH FOOD Taking Allopurinol 100 MG Tablet 1 tablet Orally Once a dayTaking Carvedilol 12.5 MG Tablet TAKE 1 TABLET BY MOUTH TWICE A DAY WITH FOOD Not-Taking/PRNAlbuterol Sulfate HFA 108 (90 Base) MCG/ACT Aerosol Solution 1 puff as needed Inhalation every 4 hrsIbuprofen 200 MG Tablet 1 tablet with food or milk as needed Orally Three times a daytraMADol HCl 50 MG Tablet 1 tablet as needed Orally every 8 hours as neededIndomethacin 50 MG Capsule TAKE ONE CAPSULE BY MOUTH 3 TIMES A DAY WITH FOOD Medication List reviewed and reconciled with the patientNot-Taking/PRN Albuterol Sulfate HFA 108 (90 Base) MCG/ACT Aerosol Solution 1 puff as needed Inhalation every 4 hrsNot-Taking/PRN Ibuprofen 200 MG Tablet 1 tablet with food or milk as needed Orally Three times a dayNot- Taking/PRN traMADol HCl 50 MG Tablet 1 tablet as needed Orally every 8 hours as neededNot-Taking/PRN Indomethacin 50 MG Capsule TAKE ONE CAPSULE BY MOUTH 3 TIMES A DAY WITH FOOD Medication List reviewed and reconciled with the patient * Allergies:?N.K.D.A.yes[Aller gies Verified] Objective: * Vitals:?Ht: 71.5, Wt:245, BM I:33.69, BP:148/100, Repeat BP:120/90 weight s up 3 pounds since 09-02-23. * Examination: ???General Examination: ?GENERAL APPEARANCE:? alert, well hydrated, in no distress , male.?HEAD:? normocephalic.?SKIN:? good turgor.?HEART:? regular rate and rhythm, no murmurs, rubs, gallops.?LUNGS:? no wheezes, rales, rhonchi, good air movement, clear to auscultation bilaterally.? Assessment: * Assessment: 1.?Essential hypertension - I10 (Primary)?2.?Arthritis of knee - M17.10?3.?Hip pain, right - M25.551?4.?Gout - M10.9?5.?Chronic renal failure, stage 2 (mild) - N18.2? Plan: * Treatment: 2.?Arthritis of knee? Notes: referral to dr mercado for knee and hip evaluation? Referral To:[facility]Orthopedic Surgery ?Reason:bilateral knee arthritis and right hip evaluation 3.?Hip pain, right? Notes: advised to see Ortho?? 4.?Gout? Continue Allopurinol Tablet, 100 MG, 1 tablet, Orally, Once a day.?? Notes: has been doing great on allopurinal, will continue current regiment/ have once again explained that he should never stop and restart allopurinol?? 5.?Chronic renal failure, st age 2 (mild)? Notes: doing well with stable function?? * Procedure Codes:? * * Sign off status: Completed true * Provider:?Brandon Kim MD Date:?0 02/28/2024 Generated for Julio avendano/Jolene/eTransmitting on:?09/04/2024 12:29 PM EDT History and Physical Notes * HPI (History of Present Illness) Category Sub-Category Detail Notes Category Not es Symptom(s) patient is a 79 yo male here for 6 month follow up visit for bp. when standing and when he first gets up hip is painful. Examination Category Sub-Category Detail Notes Category Not es General Examination GENERAL APPEARANCE: alert, w ell hydrated, in no distress , male HEAD: normocephalic HEART: regular rate and rhy thm, no murmurs, rubs, gallops LUNGS: no wheezes, rales, r honchi, good air movement, clear to auscultation bilaterally SKIN: good turgor Consultation Request Notes Referral Date Referring Provider Referred Provider Not es 02/28/2024 Brandon Kim, ORTHOPEDICS HIP PAIN, RIGHT
--- OUTSIDE RECORDS SUMMARY | 2024-09-04 12:29 | XMS_ITS | Clinical Summary ---
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 Take with meals. 10/22/2021 Active allopurinol (ZYLOPRIM) 100 MG tablet TAKE 1 TABLET BY MOUTH 1 TIME EACH DAY. 90 tablet 2 05/07/2024 Active Active Problems Problem Noted Date Diagnosed Date Stage 3b chronic kidney disease 02/20/2024 Adenoma of rectum 12/16/2021 Arthritis of knee 12/16/2021 Essential hypertension 12/16/2021 H/O: gout 12/16/2021 Blood chemistry outside reference range 10/09/19 Stage 3a chronic kidney disease 10/08/2020 Hypertensive renal disease 10/08/2020 Hyperuricemia 10/08/2020 Immunizations Name Administration Dates Next Due Influenza (IM) Preservative Free 06/16/2021 Moderna SARS-COV-2 04/30/2021,09/17/2020, 021 Pneumococcal Polysaccharide 01/14/2020 Tdap 11/30/2021 Zoster 10/09/2015 Family History Medical History Relation Comments Kidney disease Father Cancer Mother Heart disease Mother Hypertension Mother Relation Status Comments Father Alive Mother Social History Tobacco Use Types Packs/Day Years Used Date Smoking Tobacco: Never Smokeless Tobacco: Never Tobacco Cessation:Counseling Given: Not Answered Alcohol Use Standard Drinks/Week Comments Yes 0 (1 standard drink = 0.6 oz pure alcohol) Alcoholic Drinks/day: Occasional social drink Sex and Gender Information Value Date Recorded Sex Assigned at Not on file Legal Sex Male 4:54 PM EST Gender Identity Not on file Sexual Orientation Not on file Last Filed Vital Signs Vital Sign Reading Time Taken Comments Blood Pressure 134/64 02/20/2024 1:35 PM EDT Pulse 77 02/20/2024 1:35 PM EDT Temperature - - Respiratory Rate - - Oxygen Saturation 98% 02/20/2024 1:35 PM EDT Inhaled Oxygen Concentration - - Weight 106 kg (233 lb 3.2 oz) 02/20/2024 1:35 PM EDT Height 182.9 cm (6') 03/19/2020 12:00 PM EDT Body Mass Index 31.63 03/19/2020 12:00 PM EDT Plan of Treatment Upcoming Encounters Date Type Department Care Team (Late st Contact Info) Description 11/22/2024 1:45 PM EDT Office Visit [facility] [address] [place] [phone] Thai Eli MD [address] [facility] [address] [place] [address] Health Maintenance Due Date Last Done Comments Pneumococcal Vaccine: 65+ Years (2 of 2 - PCV) 01/13/2021 01/14/2020 Influenza Vaccine (#1) 2024 3, 06/16/2021 Hepatitis B Vaccine Aged Out No longe r eligible based on patient's age to complete this topic Insurance [facility] Care Teams Deli Bak[employer] Clerk Relationship Specialty Start Date End Date Brandon Kim MD [address] [place] [address] [id number] [place], [place] PCP - General 07/07/20
--- OUTSIDE RECORDS SUMMARY | 2024-09-04 12:30 | XMS_ITS ---
Author Organization Brandon Kim MD Address [address] [place], [place] [id number] Care Team Providers Care Photography Assistant Name Role Phone Brandon Kim Primary Care Provider Allergies No Known Allergies Results Component Value Reference Range Notes Occult Blood, Stool, Guaiac Reviewed date:09/02/2023 12:30:01 PM Interpretation:Negative Performing Lab: Notes/Report: Negative Occult Blood, Stool, Guaiac Neg REASON FOR VISIT annual visit, No Covid symptoms Medications Medication SIG (Take, Route, Frequency, Duration) Notes Start Date End Date Status Carvedilol 12.5 MG TAKE 1 TABLET BY LUCY TH TWICE A DAY WITH FOOD Active Indomethacin 50 MG TAKE ONE CAPSULE BY MOUTH 3 TIMES A DAY WITH FOOD for 10 Not-Taking traMADol HCl 50 MG 1 tablet as needed Orally every 8 hours as needed for 5 days 03/13/2019 Not-Taking Ibuprofen 200 MG 1 tablet with food o r milk as needed Orally Three times a day Not-Taking Allopurinol 100 MG 1 tablet Orally Once a day Active Albuterol Sulfate HFA 108 (90 Base) MCG/ACT 1 puff as needed Inhalation every 4 hrs for 30 days 08/31/2022 Not-Taking Social History Tobacco Use: Social History Observation [...] Never (0 point) Points 1 Interpretation Negative Vital Signs Blood pressure systolic 156 mm Hg 09/02/19 24 Blood pressure diastolic 84 mm Hg 024 Height 71.5 in 09/02/2023 Weight 242 lbs 09/02/2023 BMI 33.28 kg/m2 09/02/2023 weight is up 9 pounds since 03-07-23 Encounters Encounter Location Date Provider Diagnosis Brandon Kim MD [address] [place] [address] Drive [address] [place], [place] [phone] 09/02/2023 Brandon Kim Arthritis of knee M17.10 ; Annual physical exam Z00.00 ; Essential hypertension I10 ; Chronic renal failure, stage 2 (mild) N18.2 ; Colon cancer screening Z12.11 and Depression screening Z13.31 Assessments Encounter Date Diagnosis (ICD Code) Assessment Notes Treatment Notes Treatment Clinical Notes Section Notes 09/02/2023 Arthritis of knee (ICD-10 - M17.10) advised to consider ortho/ patient wants to set this up his self 09/02/2023 Annual physical exam (ICD-10 - Z00.00) labs reviewed and discussed with patient 09/02/2023 Essential hypertension (ICD-10 - I10) doing well on meds, will continue current regiment 09/02/2023 Chronic renal failure, stage 2 (mild) (ICD-10 - N18.2) stable followed by nephrology 09/02/2023 Colon cancer screening (ICD-10 - Z12.11) guaiac negative 09/02/2023 Depression screening (ICD-10 - Z13.31) negative screen Plan Of Treatment Medication Medication Name Sig Start Date Stop Date Notes Carvedilol 12.5 MG TAKE 1 TABLET BY LUCY TH TWICE A DAY WITH FOOD Treatment Notes Assessment Notes Arthritis of knee advised to consider ortho/ patient wants to set this up his self Annual physical exam labs reviewed and d iscussed with patient Essential hypertension doing well on med s, will continue current regiment Chronic renal failure, stage 2 (mild) st able followed by nephrology Colon cancer screening guaiac negative Depression screening negative screen Next Appt Details Follow Up: 6 Months, Reason: Provider Name:Brandon bauerr, 09/06/2024 11:00:00 AM, [address], [address], [place], [place], [phone], Progress Notes * MADIPoncho CARUSODOB:[birth year] (78 yo M)Acc No.[id number]:09/02/2023 Progress Notes Patient:?Poncho Brice Provider:?Branodn Kim MD :1945???Age:78 Y???Sex:Male Yogesh e:09/02/2023 Address:[address] [place], [place] [id number] Subjective: * Chief Complaints: * ???Annual visitNo Covid symp toms * HPI: ???Depression Screening:?PHQ-9?Little interest or pleasure in doing things?Not at all,?Feeling down, depressed, or hopeless?Not at all,?Trouble falling or staying asleep, or sleeping too much?Not at all,?Feeling tired or having little energy?Not at all,?Poor appetite or overeating?Not at all,?Feeling bad about yourself or that you are a failure, or have let yourself or your family down?Not at all,?Trouble concentrating on things, such as reading the newspaper or watching television?Not at all,?Moving or speaking so slowly that other people could have noticed; or the opposite, being so fidgety or restless that you have been moving around a lot more than usual?Not at all,?Thoughts that you would be better off or of hurting yourself in some way?Not at all,?Total Score?0.?Interpretation and Intervention?Depression Screening Findings?Negative,?Follow-Up for Depression?: review of PHQ-9 found negative result, no follow-up needed.? patient is a 78 yo male here forannual visit with review of recent labs and follow up of chronic issues. ???Communication Needs:?Communication Needs?Does the patient have a hearing impairment?No,?Does the patient have a vision impairment??Yes,?If yes, what is the vision impairment??Glasses,?Does the patient have a cognition impairment??No.?Fall Risk:?History?Have you had any falls with injury in the past year??No,?Have you had two or more falls in the past year??No.?SDOH Questions:?SDOH Questions?In the past year have you been worried about losing housing??No,?In the past year have you or any family members you live with been unable to get any of the following when it was really needed? Check all that apply:?None.? * ROS:?General/Constitutional:?Change in appetite?denies.?Chills?denies.?Fever?denies.?Ophthalmologic:?Blurred vision?denies.?Discharge?denies.?Pain?denies.?ENT:?Decreased hearing?denies.?Sore throat?denies.?Swollen glands?denies.?Endocrine:?Cold intolerance?denies.?Excessive thirst?denies.?Heat intolerance?denies.?Weight loss?denies.?Respiratory:?Cough?denies.?Shortness of breath at rest?denies.?Shortness of breath with exertion?denies.?Wheezing?denies.?Cardiovascular:?Chest pain at rest?denies.?Chest pain with exertion?denies.?Irregular heartbeat?denies.?Shortness of breath?denies.?Gastrointestinal:?Abdominal pain?denies.?Change in bowel habits?denies.?Diarrhea?denies.?Nausea?denies.?Rectal bleeding?denies.?Vomiting?denies .?Genitourinary:?Blood in urine?denies.?Difficulty urinating?denies.?Frequent urination?denies.?Musculoskeletal:?Painful joints?denies.?Weakness?denies.?Skin:?Dry skin?denies.?Itching?denies.?Denies?Mole(s),? changes in moles, new moles or any lesions of concern.?Denies?Photosensitivity.?Rash?denies.?Neurologic:?Dizziness?denies.?Fainting?denies.?Headache?denies.? * Medical History:? * Surgical History:? * Hospitalization/Major Diagno stic Procedure:? * Family History:?Father: dece ased 99 yrs.?Mother: 80 yrs.? mother, pancreatic cancer , No pertinent family medical history, Denies mental health/substance abuse family history, No pertinent family medical history, No pertinent family medical history, Denies mental health/substance abuse family history. * Social History:?Tobacco Use:?Tobacco Use/Smoking?Patient is a?nonsmoker,?Additional Findings: Tobacco Non-User?Current non-smoker, currently using no form of tobacco.?Drugs/Alcohol:?Alcohol Screen?Did you have a drink containing alcohol in the past year??Yes,?How often did you have a drink containing alcohol in the past year??Monthly or less (1 point),?How many drinks did you have on a typical day when you were drinking in the past year??1 or 2 drinks (0 point),?How often did you have 6 or more drinks on one occasion in the past year??Never (0 point),?Points?1,?Interpretation?Negative.?Miscellaneous:?Caffeine: yes, frequency:, 2-3 cups per day. no Children. no Community involvements. no Exercise. Home smoke detector use: smoke detectors, carbon monoxide detector. Housing: renting. Living with: significant other. Occupation: retired. Pets: 1 cats. Travel outside of the [place]: yes, [place]. * Medications:?TakingAllopurin ol 100 MG Tablet 1 [...] Allergies:?N.K.D.A.yes[Aller gies Verified] Objective: * Vitals:?Ht: 71.5, Wt:242, BM I:33.28, BP:156/84, Repeat BP:120/80 weight is up 9 pounds since 03-07-23. * ???Past Orders: ???Lab:Complete Blood Count Auto Diff (Order Date - 08/26/2023) (Collection Date - 08/26/2023) ? Value Reference Range ?White Blood Count 6.3 4. 8-10.8 - X10*3/uL ?Red Blood Count 5.73 4.60 -5.80 - X10*6/uL ?Hemoglobin 16.8 14.0-18.0 - g/dl ?Hematocrit 50.5 42.0-52.0 - % ?Mean Corpuscular Volume 88.1 80.0-98.0 - fL ?Mean Corpuscular Hemoglobin 29.3 27.0-33.0 - pg ?Mean Corpuscular HGB Conc 33.3 31.0-36.0 - g/dl ?Red Cell Distribution Width 14.6 11.0-16.0 - % ?Platelet Count 233 160-4 00 - X10*3/uL ?Mean Platelet Volume 10.4 9.4-12.4 - fL ?Neutrophils Percent Auto 57.9 45-73 - % ?Imm Gran Pct Auto 0.3 0. 0-0.4 - % ?Lymphocytes Percent Auto 25.7 20-40 - % ?Monocytes Percent Auto 8.9 2-11 - % ?Eosinophils Percent Auto 6.1 H 0-4 - % ?Basophils Percent Auto 1.1 0-2 - % ?NRBC Pct Auto 0.0 0.0-0. 2 - /100WBC ?Neutrophils Absolute Auto 3.6 2.0-8.3 - x10*3/uL ?Imm Gran Abs Auto 0.02 0. 00-0.03 - X10*3/uL ?Lymphocytes Absolute Auto 1.6 1.2-4.9 - X10*3/uL ?Monocytes Absolute Auto 0.6 0.1-1.2 - X10*3/uL ?Eosinophils Absolute Auto 0.4 0.0-0.4 - X10*3/uL ?Basophils Absolute Auto 0.1 0.0-0.2 - X10*3/uL ?NRBC Abs Auto 0.000 0.0-0. 012 - X10*3/uL ???Lab:Comprehensive Commerce. P jairo Fast (Order Date - 08/26/2023) (Collection Date - 08/26/2023) ? Value Reference Range ?Sodium 144 135-145 - mmo l/L ?Bilirubin Total 0.9 0.0- 1.0 - mg/dL ?Aspartate Amino Transferase 17 5-37 - U/L ?Alanine Aminotransferase 13 0-40 - U/L ?Total Protein 5.9 L 6.5-8. 0 - g/dL ?Albumin Level 3.5 3.5-5. 0 - g/dL ?Alkaline Phosphatase 62 39-117 - U/L ?Potassium 4.5 3.3-5.1 - mmol/L ?Chloride 110 H 96-108 - mm ol/L ?Carbon Dioxide 28 22-29 - mmol/L ?Anion Gap 11 L 12-20 - ?Blood Urea Nitrogen 19 H 9-16 - mg/dL ?Creatinine 1.68 H 0.5-1.4 - mg/dL ?Estimated Glomerular Filt Rate 40 - ?Glucose Fasting 92 60-9 9 - mg/dL ?Calcium 9.3 8.4-10.2 - m g/dL ???Lab:Lipid Panel (Order Da te 08/26/2023) (Collection Date - 08/26/2023) ? Value Reference Range ?Triglycerides 74 <150 - mg/dL ?Cholesterol 171 <200 - m g/dL ?LDL Cholesterol Calculated 116 H <100 - mg/dL ?HDL Cholesterol 41 >40 - mg/dL ???Lab:PSA,Total (Free>4and< 10) (Order Date - 08/26/2023) (Collection Date - 08/26/2023) ? Value Reference Range ?PSA,Total (Free>4and<10) 0.36 0.00-4.00 - ng/mL ???Lab:UA ClnCatch+Micro w/r flx Cult (Order Date - 08/26/2023) (Collection Date - 08/26/2023) ? Value Reference Range ?Color Urine Yellow - ?Appearance Urine Clear - ?PH 6.5 5.0-9.0 - ?Glucose Urine UA Negative Neg ative - mg/dL ?Urine Blood Negative Negative - ?Specific [place] - Urine 1.015 1.005-1.025 - ?Urine Protein 100 (2+) A Neg-Tr antwon - mg/dL ?Urine Ketones Negative Negati ve - mg/dL ?Nitrite Urine Negative Negati ve - ?Leukocyte Esterase Urine Negative Negative - ?RBC Urine 0-2 0-2 - /HPF ?WBC Urine 0-5 0-5 - /HPF ?Squamous Epithelial Cell Urine 0-2 0-2 - /HPF ?Bacteria Urine None Seen None Seen - ?Hyaline Casts Urine 0-2 0-2 - /LPF * Examination: ???General Examination: ?GENERAL APPEARANCE:?well developed, well nourished, in no acute distress.?HEAD:?normocephalic, atraumatic.?EYES:?pupils equal, round, reactive to light and accommodation, sclera non-icteric.?EARS:?normal.?ORAL CAVITY:?mucosa moist.?THROAT:?clear.?NECK/THYROID:?neck supple, full range of motion, no cervical lymphadenopathy, no bruits.?SKIN:?warm and dry, no suspicious lesions.?HEART:?regular rate and rhythm, S1, S2 normal, no murmurs.?LUNGS:?clear to auscultation bilaterally.?ABDOMEN:?soft, nontender, nondistended, bowel sounds present, normal, no organomegaly , no masses palpable.?RECTAL EXAM:?normal tone, no external hemorrhoids, no masses palpable, prostate normal, stool guaiac negative.?MALE GENITOURINARY:?uncircumcised, no penile lesions or discharge, no testicular mass, testes descended bilaterally.?EXTREMITIES:?no clubbing, cyanosis, or edema.?NEUROLOGIC:?nonfocal, motor strength normal upper and lower extremities, sensory exam intact.? Assessment: * Assessment: 1.?Annual physical exam - Z0 0.00 (Primary)?2.?Arthritis of knee - M17.10?3.?Essential hypertension - I10?4.?Chronic renal failure, stage 2 (mild) - N18.2?5.?Colon cancer screening - Z12.11?6.?Depression screening - Z13.31? Plan: * Treatment: 2.?Arthritis of knee? Notes: advised to consider ortho/ patient wants to set this up his self.?? 3.?Essential hypertension? Continue Carvedilol Tablet, 12.5 MG, TAKE 1 TABLET BY MOUTH TWICE A DAY WITH FOOD.?? Notes: doing well on meds, will continue current regiment.?? 4.?Chronic renal failure, st age 2 (mild)? Notes: stable followed by nephrology.?? 5.?Colon cancer screening?LAB: Occult Blood, Stool, Guaiac?Negative ? Value Reference Range ?Occult Blood, Stool, Guaiac Neg Notes: guaiac negative.??6.?Depression screening? Notes: negative screen.?? * Procedure Codes:?16929 TEST FOR BLOOD, FECES * Follow Up:?6 Months * * Sign off status: Completed true * Provider:?Brandon Kim MD Date:?0 09/02/2023 Generated for Julio avendano/Jolene/Gurusmitting on:?09/04/2024 12:29 PM EDT History and Physical Notes * HPI (History of Present Illness) Category Sub-Category Detail Notes Category Not es Depression Screening PHQ-9 Little inte rest or pleasure in doing things: Not at all patient is a 78 yo male here forannual visit with review of recent labs and follow up of chronic issues. Feeling down, depressed, or hopeless: No t at all Trouble falling or staying asleep, or sl eeping too much: Not at all Feeling tired or having little energy: N ot at all Poor appetite or overeating: Not at all Feeling bad about yourself o r that you are a failure, or have let yourself or your family down: Not at all Trouble concentrating on thi ngs, such as reading the newspaper or watching television: Not at all Moving or speaking so slowly that other people could have noticed; or the opposite, being so fidgety or restless that you have been moving around a lot more than usual: Not at all Thoughts that you would be b jean paul off or of hurting yourself in some way: Not at all Total Score: 0 Interpretation and Intervention Depression Carlos A langford Findings: Negative Follow-Up for Depression: : review of PH Q-9 found negative result, no follow-up needed SDOH Questions SDOH Questions In the past year have you been worried about losing housing?: No In the past year have you or any family members you live with been unable to get any of the following when it was really needed? Check all that apply:: None Fall Risk History Have you had any falls with injury i n the past year?: No Have you had two or more falls in the year?: No Communication Needs Communication Needs Does the patient have a hearing impairment: No Does the patient have a vision impairmen t?: Yes ?If yes, what is the vision impairment?: Glasses Does the patient have a cognition impair ment?: No Examination Category Sub-Category Detail Notes Category Not es General Examination GENERAL APPEARANCE: well dev eloped, well nourished, in no acute distress HEAD: normocephalic, atrau matic EYES: pupils equal, round, reactive to light and accommodation, sclera non- icteric EARS: normal THROAT: clear NECK/THYROID: neck supple, full ra nge of motion, no cervical lymphadenopathy, no bruits HEART: regular rate and rhy thm, S1, S2 normal, no murmurs LUNGS: clear to auscultatio n bilaterally ABDOMEN: soft, nontender, non distended, bowel sounds present, normal, no organomegaly , no masses palpable NEUROLOGIC: nonfocal, motor stre ngth normal upper and lower extremities, sensory exam intact SKIN: warm and dry, no lisa picious lesions EXTREMITIES: no clubbing, cyanosi s, or edema MALE GENITOURINARY: uncircumcised, no pe nile lesions or discharge, no testicular mass, testes descended bilaterally RECTAL EXAM: normal tone, no exte rnal hemorrhoids, no masses palpable, prostate normal, stool guaiac negative ORAL CAVITY: mucosa moist
== END 2024-09-04 10:28 | disposition home or self-care (01) ==
LOC: HO.LNP 10:27
PROVIDERS: Visit Provider Internal Medicine
DX: Z00.00 Encounter for general adult medical examination without abnormal findings (principal); I10 Essential (primary) hypertension; Z12.5 Encounter for screening for malignant neoplasm of prostate; N18.2 Chronic kidney disease, stage 2 (mild)
CPT/HCPCS: 80053; 80061; 81001; 84153; 85025

== ENCOUNTER 2024-11-15 09:22 | Outpatient (REF) | payer MEDICARE, SELFPAY ==
--- OUTSIDE RECORDS SUMMARY | 2024-11-15 09:40 | XMS_ITS ---
Author Organization Brandon Kim MD Address [address] [place], [place] [phone] Care Team Providers Care Operational Communication Chief Name Role Phone Brandon Kim Primary Care Provider [phone] Allergies No Known Allergies Results Component Value [...] kg/m2 09/06/2024 weight is down 5 pounds [facility] 9--24 Encounters Encounter Location Date Provider Diagnosis Brandon Kim MD [address] [place], [place] [id number] 09/06/2024 Brandon Kim Essential hypertension I10 ; [...] 10:00:00 AM, [address], [address], [place], [place], [phone], Provider Name:Brandon Antonio ier, 09/02/2025 07:30:00 AM, [address], [address], [place], [id number], Provider Name:Brandon Antonio ier, 09/09/2025 08:30:00 AM, [address], [address], [place], [id number], Progress Notes * Poncho PATRICIADOB:[birth year] (79 yo M)Acc No.[id number]:09/06/2024 Progress Notes Patient:?Poncho PATRICIA Provider:?Brandon Kim MD :1945???Age:79 Y???Sex:Male Yogesh e:09/06/2024 Address:[address] [place], [place] [id number] Subjective: * Chief Complaints: * ???1. Annual visit. * HPI: ???Depression Screening:?PHQ-9?Little interest or pleasure [...] of PHQ-9 found negative result, no follow-up needed.?here for follow up./ has gotten cotisone in hips and knees. ???Communication Needs:?Communication Needs?Does the patient have a [...] it was really needed? Check all that apply:?None.?Symptom(s):? patient is a 79 yo male here for annual visit with review of recent labs and follow up of chronic issues. * ROS:?General/Constitutional:?Change in appetite?denies.?Chills?denies.?Fever?denies.?Ophthalmologic:?Blurred vision?denies.?Discharge?denies.?Pain?denies.?ENT:?Decreased hearing?denies.?Sore throat?denies.?Swollen glands?denies.?Endocrine:?Cold intolerance?denies.?Excessive thirst?denies.?Heat intolerance?denies.?Weight loss?denies.?Respiratory:?Cough?denies.?Shortness of breath at rest?denies.?Shortness of breath with exertion?denies.?Wheezing?denies.?Cardiovascular:?Chest pain at rest?denies.?Chest pain with exertion?denies.?Irregular heartbeat?denies.?Shortness of breath?denies.?Gastrointestinal:?Abdominal pain?denies.?Change in bowel habits?denies.?Diarrhea?denies.?Nausea?denies.?Rectal bleeding?denies.?Vomiting?denies .?Genitourinary:?Blood in urine?denies.?Difficulty urinating?denies.?Frequent urination?denies.?Musculoskeletal:?Painful joints?denies.?Weakness?denies.?Skin:?Dry skin?denies.?Itching?denies.?Denies?Mole(s),? changes in moles, new moles or any lesions of concern.?Denies?Photosensitivity.?Rash?denies.?Neurologic:?Dizziness?denies.?Fainting?denies.?Headache?denies.? * Medical History:?Elevated cr of 1.6 since 2002, colonoscopy 06/25/13 - repeat 10 years (Dr. Bang), Hx - arthritis of foot. * Family History:?Father: dece ased 99 yrs.?Mother: [...] point),?Points?1,?Interpretation?Negative.?Miscellaneous:?Caffeine: yes, frequency:, 2-3 cups per day. Children: no. Community involvements: no. Exercise: no. Home smoke detector use: smoke detectors, carbon monoxide detector. Housing: renting. Living with: significant other. Occupation: retired. Pets: 1 cats. Travel outside of the [place]: yes, [facility]. * Medications:?Taking Allopuri nol 100 MG Tablet 1 tablet Orally Once [...] reviewed and reconciled with the patient * Allergies:?N.K.D.A. Objective: * Vitals:?Ht: 71.5, Wt: 240, B TX:33, BP:152/98, Repeat BP:120/88, Wt-k.86. weight is down 5 pounds since 02-28-24. * ???Past Orders: ???Lab:Lipid Panel (Order Da te - 09/03/2024) (Collection Date & Time - 09/04/2024 07:30 AM) ? Value Reference Range ?Triglycerides 64 <150 - mg/dL ?Cholesterol 156 <200 - m g/dL ?LDL Cholesterol Calculated 102 H <100 - mg/dL ?HDL Cholesterol 42 >40 - mg/dL ???Lab:PSA,Total (Free>4and< 10) (Order Date - 09/03/2024) (Collection Date & Time - 09/04/2024 07:30 AM) ? Value Reference Range ?PSA,Total (Free>4and<10) 0.46 0.00-4.00 - ng/mL ???Lab:Complete Blood Count Auto Diff (Order Date - 09/03/2024) (Collection Date & Time - 09/04/2024 07:30 AM) ? Value Reference Range ?White Blood Count 6.4 4. 8-10.8 - X10*3/uL ?Red Blood Count 5.27 4.60 -5.80 - X10*6/uL ?Hemoglobin 15.9 14.0-18.0 - g/dl ?Hematocrit 47.2 42.0-52.0 - % ?Mean Corpuscular Volume 89.6 80.0-98.0 - fL ?Mean Corpuscular Hemoglobin 30.2 27.0-33.0 - pg ?Mean Corpuscular HGB Conc 33.7 31.0-36.0 - g/dl ?Red Cell Distribution Width 14.6 11.0-16.0 - % ?Platelet Count 262 160-4 00 - X10*3/uL ?Mean Platelet Volume 10.1 9.4-12.4 - fL ?Neutrophils Percent Auto 58.5 45-73 - % ?Imm Gran Pct Auto 0.6 H 0. 0-0.4 - % ?Lymphocytes Percent Auto 24.4 20-40 - % ?Monocytes Percent Auto 9.5 2-11 - % ?Eosinophils Percent Auto 5.9 H 0-4 - % ?Basophils Percent Auto 1.1 0-2 - % ?NRBC Pct Auto 0.0 0.0-0. 2 - /100WBC ?Neutrophils Absolute Auto 3.8 2.0-8.3 - x10*3/uL ?Imm Gran Abs Auto 0.04 H 0. 00-0.03 - X10*3/uL ?Lymphocytes Absolute Auto 1.6 1.2-4.9 - X10*3/uL ?Monocytes Absolute Auto 0.6 0.1-1.2 - X10*3/uL ?Eosinophils Absolute Auto 0.4 0.0-0.4 - X10*3/uL ?Basophils Absolute Auto 0.1 0.0-0.2 - X10*3/uL ?NRBC Abs Auto 0.000 0.0-0. 012 - X10*3/uL ???Lab:Comprehensive [place]. P jairo Fast (Order Date - 09/03/2024) (Collection Date & Time - 09/04/2024 07:30 AM) ? Value Reference Range ?Sodium 145 135-145 - mmo l/L ?Bilirubin Total 0.8 0.0- 1.0 - mg/dL ?Aspartate Amino Transferase 22 5-37 - U/L ?Alanine Aminotransferase 18 0-40 - U/L ?Total Protein 6.0 L 6.5-8. 0 - g/dL ?Albumin Level 3.3 L 3.5-5. 0 - g/dL ?Alkaline Phosphatase 63 39-117 - U/L ?Potassium 4.3 3.3-5.1 - mmol/L ?Chloride 112 H 96-108 - mm ol/L ?Carbon Dioxide 27 22-29 - mmol/L ?Anion Gap 10 L 12-20 - ?Blood Urea Nitrogen 19 H 9-16 - mg/dL ?Creatinine 1.63 H 0.5-1.4 - mg/dL ?Estimated Glomerular Filt Rate 41 - ?Glucose Fasting 91 60-9 9 - mg/dL ?Calcium 9.2 8.4-10.2 - m g/dL ???Lab:UA ClnCatch+Micro w/r flx Cult (Order Date - 09/03/2024) (Collection Date & Time - 09/04/2024 07:30 AM) ? Value Reference Range ?Color Urine Dark Yellow - ?Appearance Urine Clear - ?PH 5.5 5.0-9.0 - ?Glucose Urine UA Negative Neg ative - mg/dL ?Urine Blood Negative Negative - ?Specific [place] - Urine 1.020 1.005-1.025 - ?Urine Protein 100 (2+) A [...] masses palpable, prostate normal, stool guaiac negative.?MALE GENITOURINARY:?no testicular mass, testes descended bilaterally.?EXTREMITIES:?no clubbing, cyanosis, or edema.?NEUROLOGIC:?nonfocal, motor strength normal upper and lower extremities, sensory exam intact.? Assessment: * Assessment: 1.?Annual physical exam - Z0 0.00 (Primary)???2.?Essential hypertension - I10???3.?Chronic renal failure, stage 2 (mild) - N18.2???4.?Arthritis of knee - M17.10???5.?Colon cancer screening - Z12.11???6.?Depression screening - Z13.31??? Plan: * Treatment: 2.?Essential hypertension? Notes: doing well, will continue current regiment?? 3.?Chronic renal failure, st age 2 (mild)? Notes: is stable, will continue to monitor?? 4.?Arthritis of knee? Notes: stable, will continue current regiment?? 5.?Colon cancer screening?LAB: Occult Blood, Stool, Guaiac (Collection Date & Time - 09/07/2024)?Negative ? Value Reference Range ?Occult Blood, Stool, Guaiac Neg Notes: guaiac negative??6.?Depression screening? Notes: negative screen?? * Procedure Codes:?55488 TEST FOR BLOOD, FECES * Preventive Medicine:? ??Counseling:?Care goal follow-up plan:?Counseling for abnormal BMI provided?Yes,?Above Normal BMI Follow-up?Giving encouragement to exercise.? * Follow Up:?6 Months * * The named appointment provid er may or may not be the originator of this progress note, and it is not deemed complete until electronically signed by the appointment provider. Sign off status: Pending * Provider:?Brandon Kim MD Date:?0 09/06/2024 Generated for Julio avendano/Jolene/Amandaitting on:?11/15/2024 09:39 AM EDT History and Physical Notes * [...] had two or more falls in the st year?: No Communication Needs Communication Needs Does [...]
--- OUTSIDE RECORDS SUMMARY | 2024-11-15 09:40 | XMS_ITS ---
Author Organization Brnadon Kim MD Address [address] [place], [place] [phone] Care Team Providers Care Precision Grinder External Name Role Phone Brandon Kim Primary Care Provider Allergies No Known Allergies Reason For Referral [...] Location Date Provider Diagnosis Brandon Kim MD [address] [place] [address] Drive [address] [place], [place] [phone] 02/28/2024 Brandon Kim Arthritis of knee M17.10 [...] high today but his readings at the [facility] have been good 02/28/2024 Hip pain, right [...] high today but his readings at the boat [facility] have been good Hip pain, right advised to see Ortho Gout has been doing great on allopurinal, will continue current regiment/ have once again explained that he should never stop and restart allopurinol Chronic renal failure, stage 2 (mild) do ing well with stable function Referrals Referral Date Details 02/28/2024 02/28/2024, HIP PAIN , RIGHT, [facility] Next Appt Details Provider Name:Brandon Antonio ier, 03/08/2025 10:00:00 AM, [address], [address], [place], [place], [phone], Provider Name:Brandon Antonio ier, 09/02/2025 07:30:00 AM, [address], [address], [place], [place], [phone], Provider Name:Brandon Antonio ier, 09/09/2025 08:30:00 AM, [address], [address], [place], [place], [phone], Progress Notes * Poncho PATRICIADOB:[birth year] (79 yo M)Acc No.[id number]:02/28/2024 Progress Notes Patient:?Poncho Patricia Provider:?Brandon Kim MD :1945???Age:79 Y???Sex:Male Yogesh e:02/28/2024 Address:[address] [place], [place] [phone] Subjective: * Chief Complaints: * ???6 monthC/o [...] for knee and hip evaluation? Referral To:[facility]Orthopedic Surgery ?Reason:bilateral knee arthritis and right hip [...] MD Date:?0 02/28/2024 Generated for Julio avendano/Jolene/eTransmitting on:?11/15/2024 09:39 AM EDT History and Physical [...] Referral Date Referring Provider Referred Provider Not don 02/28/2024 Brandon Kim, ORTHOPEDICS HIP PAIN, RIGHT
--- OUTSIDE RECORDS SUMMARY | 2024-11-15 09:40 | XMS_ITS | Clinical Summary ---
Author Organization [facility] Address [address] [place] [address] Phone Care Team Providers Care Telecommunications Operator Name Role Phone Brandon Kim MD Primary [...] Hypertensive renal disease 10/08/2020 Hyperuricemia 10/08/2020 Immunizations Immunization Administration Dates Next Due Influenza (IM) Preservative [...] Visit [facility] [address] [place] [address] Thai Eli MD [address] [facility] [address] [place] [address] Health Maintenance Due Date Last Done Comments Pneumococcal Vaccine: 50+ Years (2 of 2 - PCV) 01/13/2021 01/14/2020 Influenza Vaccine (Season Ended) 2025 03/07/2023, 06/16/2021 Pneumococcal Vaccine: Peds (0 to 5 Years) and At-Risk Patients (6 to 49 Years) Discontinued 01/14/2020 Hepatitis B Vaccine Aged Out No longe r eligible based on patient's age to complete this topic Insurance [facility] Care Teams Telecommunications Operator Relationship Specialty Start Date End Date Brandon Kim MD [address] [place] [address] [address] [place] [address] PCP - General 07/07/20
--- OUTSIDE RECORDS SUMMARY | 2024-11-15 09:40 | XMS_ITS | Patient Health Record ---
Author Organization Brandon Kim MD Address [address] [place], [place] [phone] Care Team Providers Care Market Relationship Manager Name Role Phone Brandon Kim Primary Care Provider [phone] Allergies No Known Allergies Results Component Value Reference Range Notes Complete Blood Count Auto Di ff Reviewed date:09/04/2024 01:54:49 PM Interpretation: Performing Lab:[facility], [address] [place] [phone] Notes/Report: White Blood Count 6.4 4.8-10.8 X10*3/uL [...] NRBC Abs Auto 0.000 0.0-0.012 X10*3/uL Comprehensive [place]. Panel Fa st Reviewed date:09/05/2024 07:12:37 PM Interpretation: Performing Lab:[facility], [address] [place] [phone] Notes/Report: Sodium 145 135-145 mmol/L Potassium 4.3 [...] 3.5-5.0 g/dL Alkaline Phosphatase 63 39-117 U/L Lipid Panel Reviewed date:09/04/2024 12:28:44 PM Interpretation: Performing Lab:[facility], [address] [place] [phone] Notes/Report: Triglycerides 64 <150 mg/dL Desirable Triglyceride: [...] (Free>4and<10) Reviewed date:09/04/2024 12:24:21 PM Interpretation: Performing Lab:[facility], [address] [place] [phone] Notes/Report: PSA,Total (Free>4and<10) 0.46 0.00-4.00 ng/mL A [...] Carson Alinity i Chemiluminescent Microparticle Immunoassay (CMIA) UA ClnCatch+Micro w/rflx Cul t Reviewed date:09/05/2024 07:13:33 PM Interpretation: Performing Lab:[facility], [address] [place] [phone] Notes/Report: Urine, Clean Catch Color Urine Dark Yellow Appearance Urine Clear PH 5.5 5.0-9.0 Glucose Urine UA Negative Negative mg/dL Urine Blood Negative Negative Specific [place] - Urine 1.020 1.005-1.025 Urine Protein 100 (2+) Neg-Trace mg/dL Urine Ketones Negative Negative mg/dL Nitrite Urine Negative Negative Leukocyte Esterase Urine Negative Negative RBC Urine 0-2 0-2 /HPF WBC Urine 0-5 0-5 /HPF Squamous Epithelial Cell Urine 0-2 0-2 /HPF Bacteria Urine None Seen None Seen Hyaline Casts Urine 0-2 0-2 /LPF Occult Blood, Stool, Guaiac Reviewed date:09/07/2024 12:31:22 PM Interpretation:Negative Performing Lab: Notes/Report: Negative Occult Blood, Stool, Guaiac Neg Reason For Referral Reason HIP PAIN, RIGHT [...] Last Name Julio Referring Provider Speciality Internal edicine Referred Provider AXEL FELIX Referred Provider Specialty Orthopedic S urgery General Notes Danae Goncalves 03/09/2024 09:29:51 AM [...] A DAY WITH FOOD for 90 Active Allopurinol 100 MG 1 tablet Orally Once a day Active traMADol HCl 50 MG 1 tablet as needed Orally every 8 hours as needed for 5 days 03/13/2019 Not-Taking Ibuprofen 200 MG 1 tablet with food o r milk as needed Orally Three times a day Not-Taking Albuterol Sulfate HFA 108 (90 Base) MCG/ACT 1 puff as needed Inhalation every 4 hrs for 30 days 08/31/2022 Not-Taking Immunizations Vaccine Route Administration Date Status [...] Influenza High Dose Unknown 04/01/2020 Pending At [facility] Social History Tobacco Use: Social History [...] Status W/U Status Risk Notes Problem Gout (M10.9) Active confirmed Problem 64561927 Essential hypertension (I10) Active confirmed Problem 424546171 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) Active confirmed Problem 229731906 History of gout (Z87.39) Active confirmed Problem 956005890 Chronic renal failure, stage 2 (mild) (N18.2) Active confirmed Problem 736060114 Arthritis of kne e (M17.10) Active confirmed Vital Signs Blood pressure diastolic 98 mm Hg 09/06/2024 khoi ght is down 5 pounds since 02-28-24 Height 71.5 in 09/06/2024 weight is down 5 pounds since 02-28-24 Blood pressure systolic 152 mm Hg 09/06/2024 weig ht is down 5 pounds since 02-28-24 Weight 240 lbs 09/06/2024 weight is down 5 pounds since 02-28-24 BMI 33 kg/m2 09/06/2024 weight is down 5 pounds since 02-28-24 Encounters Encounter Location Date Provider Diagnosis Brandon Kim MD [address] [place] [address] [address] [place] [phone] 09/03/2024 Brandon Kim Blood tests for routine general physical examination Z00.00 ; Essential hypertension I10 and Chronic renal failure, stage 2 (mild) N18.2 Brandon Kim MD [address] [place] [address] [phone] 09/06/2024 Brandon Kim Essential hypertension I10 ; Annual physical exam Z00.00 ; Chronic renal failure, stage 2 (mild) N18.2 ; Arthritis of knee M17.10 ; Colon cancer screening Z12.11 and Depression screening Z13.31 Brandon Kim MD [address] [place] [address] [phone] 02/28/2024 Brandon Kim Arthritis of knee M17.10 ; Essential hypertension I10 ; Hip pain, right M25.551 ; Gout M10.9 and Chronic renal failure, stage 2 (mild) N18.2 Assessments Encounter Date Diagnosis (ICD Code) Assessment Notes Treatment Notes Treatment Clinical Notes Section Notes 09/03/2024 Blood tests for routine general physical examination (ICD-10 - Z00.00) 09/06/2024 Essential hypertension (ICD-10 - I10) doing well, will continue current regiment 09/06/2024 Annual physical exam (ICD-10 - Z00.00) labs reviewed and discussed with patient 02/28/2024 Arthritis of knee (ICD-10 - M17.10) referral to dr mercado for knee and hip evaluation 02/28/2024 Essential hypertension (ICD-10 - I10) doing well. 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 09/03/2024 Essential hypertension (ICD-10 - I10) 09/06/2024 Chronic renal failure, stage 2 (mild) (ICD-10 - N18.2) is stable, will continue to monitor 02/28/2024 Hip pain, right (ICD-10 - M25.551) advised to see Ortho 09/03/2024 Chronic renal failure, stage 2 (mild) (ICD-10 - N18.2) 09/06/2024 Arthritis of knee (ICD-10 - M17.10) stable, will continue current regiment 02/28/2024 Gout (ICD-10 - M10.9) has been doing great on allopurinal, will continue current regiment/ have once again explained that he should never stop and restart allopurinol 09/06/2024 Colon cancer screening (ICD-10 - Z12.11) guaiac negative 02/28/2024 Chronic renal failure, stage 2 (mild) (ICD-10 - N18.2) doing well with stable function 09/06/2024 Depression screening (ICD-10 - Z13.31) negative screen Plan Of Treatment Pending Test Test Name Order Date Electrocardiogram (EKG) 04/01/2015 Electrocardiogram (EKG) 04/09/2016 Electrocardiogram (EKG) 05/05/2018 XR CHEST 2 VIEW PA & LAT 08/31/2022 Next Appt Details Provider Name:Brandon gallardo, 03/08/2025 10:00:00 AM, [address] [place] [address], [address], [place], [phone], Provider Name:Brandon gallardo, 09/02/2025 07:30:00 AM, [address] [place] [address], [address], [place], [phone], Provider Name:Brandon gallardo, 09/09/2025 08:30:00 AM, [address] [facility], [address], [place], [place], [phone], Insurance Providers Payer Name Payer Address Payer Phone Subscriber Number Group Number Insured Name Patient Relationship to Insured Coverage Start Date Coverage End Date [employer] [facility] [address] [place] [phone] [id number] [place]cho [place] i Self - patient is the insured MEDICARE [employer] [address] [place] [address] [id number] [place]cho [place] i Self - patient is the insured Medical (General) History Medical History History ICD Code elevated cr of 1.6 since 2002 colonoscopy 06/25/13 - repeat 10 years ( Dr. Bang) Hx - arthritis of foot
--- OUTSIDE RECORDS SUMMARY | 2024-11-15 09:40 | XMS_ITS ---
Author Organization Brandon Kim MD Address [address] [place], [place] [phone] Care Team Providers Care Charter Boat Captain Name Role Phone Brandon Kim Primary Care Provider Results Component Value Reference Range Notes Complete Blood Count Auto Di ff Reviewed date:09/04/2024 01:54:49 PM Interpretation: Performing Lab:[facility], [address] [place] [phone] Notes/Report: White Blood Count 6.4 4.8-10.8 X10*3/uL [...] NRBC Abs Auto 0.000 0.0-0.012 X10*3/uL Comprehensive [place]. Panel Fa st Reviewed date:09/05/2024 07:12:37 PM Interpretation: Performing Lab:[facility], [address] [place] [phone] Notes/Report: Sodium 145 135-145 mmol/L Potassium 4.3 [...] Panel Reviewed date:09/04/2024 12:28:44 PM Interpretation: Performing Lab:[facility], [address] [place] [phone] Notes/Report: Triglycerides 64 <150 mg/dL Desirable Triglyceride: [...] (Free>4and<10) Reviewed date:09/04/2024 12:24:21 PM Interpretation: Performing Lab:[address] [phone] Notes/Report: PSA,Total (Free>4and<10) 0.46 0.00-4.00 ng/mL A [...] t Reviewed date:09/05/2024 07:13:33 PM Interpretation: Performing Lab:[address] [phone] Notes/Report: Urine, Clean Catch Color Urine Dark Yellow Appearance Urine Clear PH 5.5 5.0-9.0 Glucose Urine UA Negative Negative mg/dL Urine Blood Negative Negative Specific [place] - Urine 1.020 1.005-1.025 Urine Protein 100 (2+) Neg-Trace mg/dL Urine Ketones Negative Negative mg/dL Nitrite Urine Negative Negative Leukocyte Esterase Urine Negative Negative RBC Urine 0-2 0-2 /HPF WBC Urine 0-5 0-5 /HPF Squamous Epithelial Cell Urine 0-2 0-2 /HPF Bacteria Urine None Seen None Seen Hyaline Casts Urine 0-2 0-2 /LPF REASON FOR VISIT yearly fasting labs Encounters Encounter Location Date Provider Diagnosis Brandon Kim MD [address] [place] [address] [address] [place] [phone] 09/03/2024 Brandon Kim Blood tests for routine [...] (mild) (ICD-10 - N18.2) Plan Of Treatment Next Appt Details Provider Name:Brandon gallardo, 03/08/2025 10:00:00 AM, [address] [place] [address], [address] [place] [address], [phone], Provider Name:Brandon gallardo, 09/02/2025 07:30:00 AM, [address] [place] [address], [address], [phone], Provider Name:Brandon gallardo, 09/09/2025 08:30:00 AM, [address] [place] [address], [address], [phone], Progress Notes * Poncho PATRICIADOB:[birth year] (79 yo M)Acc No.[id number]:09/03/2024 Progress Note Patient:?Poncho PATRICIA Provider:?Brandon Kim MD :1945???Age:79 Y???Sex:Male Yogesh e:09/03/2024 Address:[address] [place], [place] [phone] Subjective: * Chief Complaints: * ???1. Yearly fasting labs. * Medical History:? Objective: * Vitals:? Assessment: * Assessment: 1.?Blood tests for routine g eneral physical examination - Z00.00 (Primary)???2.?Essential hypertension - I10???3.?Chronic renal failure, stage 2 (mild) - N18.2??? Plan: * Treatment: 2.?Essential hypertension?LAB: Complete Blood Count Auto Diff (Collection Date & Time - 09/04/2024 07:30 AM) ?LAB: Comprehensive [place]. Panel Fast (Collection Date & Time - [...] Time - 09/04/2024 07:30 AM) ?LAB: Comprehensive [place]. Panel Fast (Collection Date & Time - 09/04/2024 07:30 AM) ?LAB: Lipid Panel (Collection Date & Time - 09/04/2024 07:30 AM) ?LAB: PSA,Total (Free>4and<10) (Collection Date & Time - 09/04/2024 07:30 AM) ?LAB: UA ClnCatch+Micro w/rflx Cult (Collection Date & Time - 09/04/2024 07:30 AM) * Procedure Codes:?78020 VENIP UNCT, ROUTINE* * * The named appointment provid er may or may not be the originator of this progress note, and it is not deemed complete until electronically signed by the appointment provider. Sign off status: Pending * Provider:?Brandon Kim MD Date:?0 09/03/2024 Generated for Julio avendano/Jolene/eTabrahamsmitting on:?11/15/2024 09:39 AM EDT
[2024-11-15 09:51] LABS: MANUAL DIFF FLAG NO
[2024-11-15 09:57] LABS: Basophils Absolute Auto 0.1 X10*3/uL (0.0-0.2); Basophils Percent Auto 0.9 % (0-2); Eosinophils Absolute Auto 0.5 X10*3/uL (0.0-0.4); Eosinophils Percent Auto 6.9 % (0-4); Hematocrit 45.5 % (42.0-52.0); Hemoglobin 15.3 g/dl (14.0-18.0); Imm Gran Abs Auto 0.03 X10*3/uL (0.00-0.03); Imm Gran Pct Auto 0.4 % (0.0-0.4); Lymphocytes Absolute Auto 1.5 X10*3/uL (1.2-4.9); Lymphocytes Percent Auto 21.8 % (20-40); Mean Corpuscular HGB Conc 33.6 g/dl (31.0-36.0); Mean Corpuscular Hemoglobin 29.8 pg (27.0-33.0); Mean Corpuscular Volume 88.7 fL (80.0-98.0); Mean Platelet Volume 10.1 fL (9.4-12.4); Monocytes Absolute Auto 0.6 X10*3/uL (0.1-1.2); Monocytes Percent Auto 8.8 % (2-11); Neutrophils Absolute Auto 4.1 x10*3/uL (2.0-8.3); Neutrophils Percent Auto 61.2 % (45-73); Platelet Count 225 X10*3/uL (160-400); Red Blood Count 5.13 X10*6/uL (4.60-5.80); Red Cell Distribution Width 14.2 % (11.0-16.0); White Blood Count 6.8 X10*3/uL (4.8-10.8)
[2024-11-15 10:15] LABS: Appearance Urine Clear; Color Urine Yellow; Glucose Urine UA Negative (Negative); Leukocyte Esterase Urine Negative (Negative); Nitrite Urine Negative (Negative); UMIC TRIGGER UACC YES; Urine Blood Negative (Negative); Urine Ketones Negative (Negative); Urine Protein 100 (2+) mg/dL (Neg-Trace)
[2024-11-15 10:17] LABS: Bacteria Urine None Seen (None Seen); Hyaline Casts Urine 0-2 /LPF (0-2); RBC Urine 0-2 /HPF (0-2); Squamous Epithelial Cell Urine 0-2 /HPF (0-2); WBC Urine 0-5 /HPF (0-5)
[2024-11-15 11:06] LABS: Albumin Level 3.6 g/dL (3.5-5.0); Anion Gap 14 (12-20); Blood Urea Nitrogen 21 mg/dL (9-16); Calcium 9.2 mg/dL (8.4-10.2); Carbon Dioxide 26 mmol/L (22-29); Chloride 111 mmol/L (96-108); Estimated Glomerular Filt Rate 41; Magnesium 1.9 mg/dL (1.6-2.6); Phosphorus 3.1 mg/dL (2.7-4.5); Sodium 147 mmol/L (135-145)
[2024-11-15 11:27] LABS: Parathyroid Hormone Intact 94.2 pg/mL (8.7-77.1)
[2024-11-15 11:37] LABS: Creatinine Urine 95.36 mg/dL; Protein/Creatinine Ratio, Ur 0.89 (<0.2); Total Protein Urine Random 85 mg/dL (<12); Vitamin D 25-OH Total 37.4 ng/mL (>30)
[2024-11-15 11:53] LABS: Microalbum/Creatinine Ratio Ur 650.1 ug/mg cr (<30)
== END 2024-11-15 09:23 | disposition home or self-care (01) ==
LOC: HO.10HDL 09:22
PROVIDERS: Visit Provider Internal Medicine Nephrology
DX: N18.32 Chronic kidney disease, stage 3b (principal); I10 Essential (primary) hypertension; I12.9 Hypertensive chronic kidney disease with stage 1 through stage 4 chronic kidney disease, or unspecified chronic kidney disease
CPT/HCPCS: 36415; 80051; 81001; 82040; 82043; 82306; 82310; 82565; 82570; 83735; 83970; 84100; 84156; 84520; 85025

== ENCOUNTER 2025-01-01 09:08 | Outpatient (REF) | payer MEDICARE, SELFPAY ==
--- OUTSIDE RECORDS SUMMARY | 2024-09-06 07:00 | XMS_ITS ---
Author Organization Brandon Kim MD Address [address] [place], [place] [id number] Care Team Providers Care Relationship Mgr Name Role Phone Brandon Kim Primary Care Provider Allergies No Known Allergies Results Component Value Reference Range Notes Occult Blood, Stool, Guaiac Reviewed date:09/07/2024 12:31:22 PM Interpretation:Negative Performing Lab: Notes/Report: Negative Occult Blood, Stool, Guaiac Neg REASON FOR VISIT annual visit Medications Medication SIG (Take, Route, Frequency, Duration) Notes Start Date End Date Status Indomethacin 50 MG TAKE ONE CAPSULE BY MOUTH 3 TIMES A DAY WITH FOOD for 10 Not-Taking Carvedilol 12.5 MG TAKE 1 TABLET BY LUCY TH TWICE A DAY WITH FOOD for 90 Active traMADol HCl 50 MG 1 tablet as needed Orally every 8 hours as needed for 5 days 03/13/2019 Not-Taking Ibuprofen 200 MG 1 tablet with food o r milk as needed Orally Three times a day Not-Taking Albuterol Sulfate HFA 108 (90 Base) MCG/ACT 1 puff as needed Inhalation every 4 hrs for 30 days 08/31/2022 Not-Taking Allopurinol 100 MG 1 tablet Orally Once a day Active Social History Tobacco Use: Social History Observation [...] Interpretation Negative Vital Signs Blood pressure systolic 152 mm Hg 09/07/19 25 Blood pressure diastolic 98 mm Hg 025 Height 71.5 in 09/06/2024 Weight 240 lbs 09/06/2024 BMI 33 kg/m2 09/06/2024 weight is down 5 pounds [facility] 9--24 Encounters Encounter Location Date Provider Diagnosis Brandon Kim MD [address] [place], [place] [id number] 09/06/2024 Brandon Kim Essential hypertension I10 ; Annual physical exam Z00.00 ; Chronic renal failure, stage 2 (mild) N18.2 ; Arthritis of knee M17.10 ; Colon cancer screening Z12.11 and Depression screening Z13.31 Assessments Encounter Date Diagnosis (ICD Code) Assessment Notes Treatment Notes Treatment Clinical Notes Section Notes 09/06/2024 Essential hypertension (ICD-10 - I10) doing well, will continue current regiment 09/06/2024 Annual physical exam (ICD-10 - Z00.00) labs reviewed and discussed with patient 09/06/2024 Chronic renal failure, stage 2 (mild) (ICD-10 - N18.2) is stable, will continue to monitor 09/06/2024 Arthritis of knee (ICD-10 - M17.10) stable, will continue current regiment 09/06/2024 Colon cancer screening (ICD-10 - Z12.11) guaiac negative 09/06/2024 Depression screening (ICD-10 - Z13.31) negative screen Plan Of Treatment Treatment Notes Assessment Notes Essential hypertension doing well, will continue current regiment Annual physical exam labs reviewed and d iscussed with patient Chronic renal failure, stage 2 (mild) is stable, will continue to monitor Arthritis of knee stable, will continu e current regiment Colon cancer screening guaiac negative Depression screening negative screen Next Appt Details Follow Up: 6 Months, Reason: Provider Name:Brandon gallardo, 03/08/2025 10:00:00 AM, [address], [address], [place], [place], [id number], Provider Name:Brandon Antonio ier, 09/02/2025 07:30:00 AM, [address], [address], [place], [place], [id number], Provider Name:Brandon Antonio ier, 09/09/2025 08:30:00 AM, [address], [address], [place], [id number], Progress Notes * YOUSIFFilemon APONTEmariano MeeksDOB:[birth year] (79 yo M)Acc No.[id number]:09/06/2024 Progress Notes Patient: Poncho LAMA Provider: Joshua Kim MD :1945 A ge:79 Y S ex:Male Date:09/06/2024 Address:[address] [place], [place] [id number] Subjective: * Chief Complaints: * 1 . Annual visit. * HPI: D epression Screening: PHQ-9 L ittle interest or pleasure in doing things N ot at all, F eeling down, depressed, or hopeless N ot at all, T rouble falling or staying asleep, or sleeping too much N ot at all, F eeling tired or having little energy N ot at all, P oor appetite or overeating N ot at all, F eeling bad about yourself or that you are a failure, or have let yourself or your family down N ot at all, T rouble concentrating on things, such as reading the newspaper or watching television N ot at all, M oving or speaking so slowly that other people could have noticed; or the opposite, being so fidgety or restless that you have been moving around a lot more than usual N ot at all, T houghts that you would be better off or of hurting yourself in some way N ot at all, T otal Score 0 . I nterpretation and Intervention D epression Screening Findings N egative, F ollow-Up for Depression : review of PHQ-9 found negative result, no follow-up needed. here for follow up./ has gotten cotisone in hips and knees. C ommunication Needs: Communication Needs D oes the patient have a hearing impairment N o, D oes the patient have a vision impairment? Y es, I f yes, what is the vision impairment? G lasses, D oes the patient have a cognition impairment? N o. F all Risk: History H ave you had any falls with injury in the past year? N o, H ave you had two or more falls in the past year? N o. S ELIESER Questions: SDOH Questions I n the past year have you been worried about losing housing? N o, I n the past year have you or any family members you live with been unable to get any of the following when it was really needed? Check all that apply: N one. S ymptom(s): patient is a 79 yo male here for annual visit with review of recent labs and follow up of chronic issues. * ROS: G eneral/Constitutional: Change in appetite d enies. C hills d enies. F ever d enies. O phthalmologic: Blurred vision d enies. D ischarge d enies. P ain d enies. E NT: Decreased hearing d enies. S ore throat d enies.?Swollen glands d enies. E ndocrine: Cold intolerance d enies. E xcessive thirst d enies. H eat intolerance d enies. W eight loss d enies. R espiratory: Cough d enies. S hortness of breath at rest d enies. S hortness of breath with exertion d enies. W heezing d enies. C ardiovascular: Chest pain at rest d enies. C hest pain with exertion?denies. I rregular heartbeat d enies. S hortness of breath d enies. ? G astrointestinal: Abdominal pain d enies. C hange in bowel habits d enies. D iarrhea d enies. N ausea d enies. R ectal bleeding d enies. V omiting d enies . G enitourinary: Blood in urine d enies. D ifficulty urinating d enies. F requent urination d enies. M usculoskeletal: Painful joints d enies. W eakness d enies. ? S kin: Dry skin d enies. I tching d enies. D enies?Mole(s), changes in moles, new moles or any lesions of concern. D enies P hotosensitivity. R johnie d enies. N eurologic: Dizziness d enies. F ainting d enies. H eadache?denies. * Medical History: E levated cr of 1.6 since 2002, colonoscopy 06/25/13 - repeat 10 years (Dr. Bang), Hx - arthritis of foot. * Family History: F ather: 99 yrs. M other: 80 yrs. mother, pancreatic cancer , No pertinent family medical history, Denies mental health/substance abuse family history, No pertinent family medical history, No pertinent family medical history, Denies mental health/substance abuse family history. * Social History: T obacco Use: T obacco Use/Smoking P atjuanjo is a n onsmoker, A dditional Findings: Tobacco Non-User C urrent non-smoker, currently using no form of tobacco. D rugs/Alcohol: A lcohol Screen D id you have a drink containing alcohol in the past year? Y es, H ow often did you have a drink containing alcohol in the past year? M onthly or less (1 point), H ow many drinks did you have on a typical day when you were drinking in the past year? 1 or 2 drinks (0 point), H ow often did you have 6 or more drinks on one occasion in the past year? N ever (0 point), P oints 1 , I nterpretation N egative. M iscellaneous: C affeine: yes, frequency:, 2-3 cups per day. Children: no. Community involvements: no. Exercise: no. Home smoke detector use: smoke detectors, carbon monoxide detector. Housing: renting. Living with: significant other. Occupation: retired. Pets: 1 cats. Travel outside of the [place]: yes, [facility]. * Medications: T aking Allopurinol 100 MG Tablet 1 tablet Orally Once a day , Taking Carvedilol 12.5 MG Tablet TAKE 1 TABLET BY MOUTH TWICE A DAY WITH FOOD , Not-Taking/PRN Albuterol Sulfate HFA 108 (90 Base) MCG/ACT Aerosol Solution 1 puff as needed Inhalation every 4 hrs , Not-Taking/PRN Ibuprofen 200 MG Tablet 1 tablet with food or milk as needed Orally Three times a day , Not-Taking/PRN traMADol HCl 50 MG Tablet 1 tablet as needed Orally every 8 hours as needed , Not-Taking/PRN Indomethacin 50 MG Capsule TAKE ONE CAPSULE BY MOUTH 3 TIMES A DAY WITH FOOD , Medication List reviewed and reconciled with the patient * Allergies: N .K.D.A. Objective: * Vitals: H t: 71.5, Wt: 240, BMI:33, BP:152/98, Repeat BP:120/88, Wt-k.86. weight is down 5 pounds since 02-28-24. * P ast Orders: L ab:Lipid Panel (Order Date - 09/03/2024) (Collection Date & Time - 09/04/2024 07:30 AM) Value Reference Range Triglycerides 64 <150 - mg/dL Cholesterol 156 <200 - mg/dL LDL Cholesterol Calculated 102 H <100 - mg/dL HDL Cholesterol 42 >40 - mg/dL L ab:PSA,Total (Free>4and<10) (Order Date - 09/03/2024) (Collection Date & Time - 09/04/2024 07:30 AM) Value Reference Range PSA,Total (Free>4and<10) 0.46 0.00-4.00 - ng/ mL L ab:Complete Blood Count Auto Diff (Order Date - 09/03/2024) (Collection Date & Time - 09/04/2024 07:30 AM) Value Reference Range White Blood Count 6.4 4.8-10.8 - X10*3/uL Red Blood Count 5.27 4.60-5.80 - X10*6/uL Hemoglobin 15.9 14.0-18.0 - g/dl Hematocrit 47.2 42.0-52.0 - % Mean Corpuscular Volume 89.6 80.0-98.0 - fL Mean Corpuscular Hemoglobin 30.2 27.0-33.0 - pg Mean Corpuscular HGB Conc 33.7 31.0-36.0 - g/ dl Red Cell Distribution Width 14.6 11.0-16.0 - % Platelet Count 262 160-400 - X10*3/uL Mean Platelet Volume 10.1 9.4-12.4 - fL Neutrophils Percent Auto 58.5 45-73 - % Imm Gran Pct Auto 0.6 H 0.0-0.4 - % Lymphocytes Percent Auto 24.4 20-40 - % Monocytes Percent Auto 9.5 2-11 - % Eosinophils Percent Auto 5.9 H 0-4 - % Basophils Percent Auto 1.1 0-2 - % NRBC Pct Auto 0.0 0.0-0.2 - /100WBC Neutrophils Absolute Auto 3.8 2.0-8.3 - x10* 3/uL Imm Gran Abs Auto 0.04 H 0.00-0.03 - X10*3/uL Lymphocytes Absolute Auto 1.6 1.2-4.9 - X10* 3/uL Monocytes Absolute Auto 0.6 0.1-1.2 - X10*3/ uL Eosinophils Absolute Auto 0.4 0.0-0.4 - X10* 3/uL Basophils Absolute Auto 0.1 0.0-0.2 - X10*3/ uL NRBC Abs Auto 0.000 0.0-0.012 - X10*3/uL L ab:Comprehensive [place]. Panel Fast (Order Date - 09/03/2024) (Collection Date & Time - 09/04/2024 07:30 AM) Value Reference Range Sodium 145 135-145 - mmol/L Bilirubin Total 0.8 0.0-1.0 - mg/dL Aspartate Amino Transferase 22 5-37 - U/L Alanine Aminotransferase 18 0-40 - U/L Total Protein 6.0 L 6.5-8.0 - g/dL Albumin Level 3.3 L 3.5-5.0 - g/dL Alkaline Phosphatase 63 39-117 - U/L Potassium 4.3 3.3-5.1 - mmol/L Chloride 112 H 96-108 - mmol/L Carbon Dioxide 27 22-29 - mmol/L Anion Gap 10 L 12-20 - Blood Urea Nitrogen 19 H 9-16 - mg/dL Creatinine 1.63 H 0.5-1.4 - mg/dL Estimated Glomerular Filt Rate 41 - Glucose Fasting 91 60-99 - mg/dL Calcium 9.2 8.4-10.2 - mg/dL L ab:UA ClnCatch+Micro w/rflx Cult (Order Date - 09/03/2024) (Collection Date & Time - 09/04/2024 07:30 AM) Value Reference Range Color Urine Dark Yellow - Appearance Urine Clear - PH 5.5 5.0-9.0 - Glucose Urine UA Negative Negative - mg/dL Urine Blood Negative Negative - Specific [place] - Urine 1.020 1.005-1.025 - Urine Protein 100 (2+) A Neg-Trace - mg/dL Urine Ketones Negative Negative - mg/dL Nitrite Urine Negative Negative - Leukocyte Esterase Urine Negative Negative - RBC Urine 0-2 0-2 - /HPF WBC Urine 0-5 0-5 - /HPF Squamous Epithelial Cell Urine 0-2 0-2 - /HP F Bacteria Urine None Seen None Seen - Hyaline Casts Urine 0-2 0-2 - /LPF * Examination: G eneral Examination: GENERAL APPEARANCE: w ell developed, well nourished, in no acute distress. HEAD: n ormocephalic, atraumatic. EYES: p upils equal, round, reactive to light and accommodation, sclera non-icteric. EARS: n ormal. ORAL CAVITY: m ucosa moist. THROAT: c lear. NECK/THYROID: n maci supple, full range of motion, no cervical lymphadenopathy, no bruits. SKIN: w arm and dry, no suspicious lesions. HEART: r egular rate and rhythm, S1, S2 normal, no murmurs.? LUNGS: c lear to auscultation bilaterally. ABDOMEN: s oft, nontender, nondistended, bowel sounds present, normal, no organomegaly , no masses palpable. RECTAL EXAM: n ormal tone, no external hemorrhoids, no masses palpable, prostate normal, stool guaiac negative. MALE GENITOURINARY: n o testicular mass, testes descended bilaterally. EXTREMITIES: n o clubbing, cyanosis, or edema. NEUROLOGIC: n onfocal, motor strength normal upper and lower extremities, sensory exam intact. Assessment: * Assessment: 1. A nnual physical exam - Z00.00 (Primary) 2 . E ssential hypertension - I10 3 . C hronic renal failure, stage 2 (mild) - N18.2 4 . A rthritis of knee - M17.10 5 . C olon cancer screening - Z12.11 6 . D epression screening - Z13.31 Plan: * Treatment: 2. E ssential hypertension Notes: doing well, will continue current regiment 3. C hronic renal failure, stage 2 (mild) Notes: is stable, will continue to monitor 4. A rthritis of knee Notes: stable, will continue current regiment 5. C olon cancer screening L AB: Occult Blood, Stool, Guaiac (Collection Date & Time - 09/07/2024) N egative Value Reference Range O ccult Blood, Stool, Guaiac Neg Notes: guaiac negative??6.?Depression screening? Notes: negative screen?? * Procedure Codes: 8 2270 TEST FOR BLOOD, FECES * Preventive Medicine: Counseling: C are goal follow-up plan: C ounseling for abnormal BMI provided?Yes, A binu Normal BMI Follow-up G iving encouragement to exercise. * Follow Up: 6 Months * * The named appointment provid er may or may not be the originator of this progress note, and it is not deemed complete until electronically signed by the appointment provider. Sign off status: Pending * Provider: Joshua Kim MD Date: 0 09/06/2024 Generated for Julio avendano/Jolene/Gurusmitting on: 0 01/01/2025 09:31 AM EDT History and Physical Notes * HPI (History of Present Illness) Category Sub-Category Detail Notes Category Not es Symptom(s) patient is a 79 yo male here for annual visit with review of recent labs and follow up of chronic issues. Depression Screening PHQ-9 Little inte rest or pleasure in doing things: Not at all here for follow up./ has gotten cotisone in hips and knees. Feeling down, depressed, or hopeless: No t [...] patient have a vision impairmen t?: Yes If yes, what is the vision impairment?: Glasses Does the patient have a cognition impair ment?: No Examination Category Sub-Category Detail Notes Category Not es General Examination GENERAL APPEARANCE: well dev eloped, well nourished, in no acute distress HEAD: normocephalic, atrau matic EYES: pupils equal, round, reactive to light and accommodation, sclera non-icteric EARS: normal THROAT: clear NECK/THYROID: neck supple, [...] clubbing, cyanosi s, or edema MALE GENITOURINARY: no testicular mass, testes descended bilaterally RECTAL EXAM: normal tone, no exte rnal hemorrhoids, no masses palpable, prostate normal, stool guaiac negative ORAL CAVITY: mucosa moist
--- OUTSIDE RECORDS SUMMARY | 2025-01-01 09:31 | XMS_ITS | Data Portability ---
Author Organization [facility], [facility] Address [address] [place] [address] Care Team Providers Care Silk Screen Processor Name Role Phone DAKSHA LITTLE Primary Care Provider Assessment Encounter Date Assessment Date Assessment LastModified by Organization Details LastModified Time 11/30/2024 11/30/2024 Patient seen under general supervision of Dr. Gee who was available but who did not see the patient. HPI: 79-year-old male seen today for follow-up regarding bilateral knee arthritis as well as right hip trochanteric bursitis. Patient is been receiving injections for his knee with limited relief. At this time believes she would like to proceed with total knee arthroplasty. He denies any recent falls or trauma but does reportedly been having increasing discomfort about the lateral aspect of the right hip. He received an injection for such and done well until recently. He denies any recent falls or trauma. Examination: 79-year-old male no acute distress and good notably antalgic gait. On examination the knees significant varus angulation noted. Range of motion 5-110 . No gross instability. Calves are soft. Examination of the right hip reveals no ecchymosis or erythema warmth, tenderness in the lateral aspect of hip overlying greater trochanter noted. X-rays ordered, obtained and reviewed at [facility] 4 views left knee reveal end-stage arthritis without any evidence of acute fracture or dislocation. Impression: End-stage bilateral knee arthritis as well as right hip trochanteric bursitis Plan: Regarding the knees patient would like to see Dr. Jeter to further discuss total knee arthroplasty. Regarding the right hip patient was offered repeat injection which she accepted today was performed. Postinjection precautions reviewed. Follow-up regarding the hip on a p.r.n. basis. [facility] speech recognition screw supervisor software was used to create portions of this document. An attempt at proofreading has been made to minimize errors. Please call for corrections. [email or web address] Not available 11/30/2024 13:56:08 Plan of Treatment Reminders Order Date Submit Date Provider Last Modified By Organization Details Last Modified Time Details Appointments NEW PATIENT 20 2024 03:00P M Josue Jeter MD Not available Not available Not available Lab None recorde d. Referral None recorde d. Procedures None recorde d. Surgeries None recorde d. Imaging XR, knee, 4 or more view - rm 208 4V left knee wants sx w/ AB soon 2024 [facility] [address], [place], [address], 12/12/2024 10:38:31 XR, knee, 4 or more view - 4v bilat knees. room 213 2023 [facility]24 [email or web address], [address], [address], [place], [address], 04/16/2024 14:14:59 XR, hip + pelvis, unilate ral, 2 or 3 view - rm 209 3V R hip pain 2023 0[email or web address], [address], [place], [address], 03/12/2024 16:55:47 Medication Orders None recorde d. Patient TargetsNo targets recorded. Patient InstructionsNo instructions recorded. Reason for Referral None Reported. Results Created Date Observation Date Name Description Value Unit Range Abnormal Flag Note LastModifiedBy Organization Detail LastModifiedTime 03/12/20 24 03/12/2024 XR, hip + pelvi s, unila teral , 2 or 3 view http:/ [email or web address] ?Encry pted=s hAaTro YD8dLq bEUv6g %2BXZw aYqtaq 0bqfl% 2Fg9IQ a4ajBk vP9nXo QUaueC m3YtLR FvZlgJ JJ8mAn HZtai3 0h4093 AC0Kqa nmCUqa mKiQtr MwF INTERFACE [facility] [address] [facility] [address] [address], [place], [address], 03/12/2024 14:05:17 03/12/20 24 03/12/2024 XR, hip + pelvi s, unila teral , 2 or 3 view http:/ [email or web address] ?Encry pted=s hAaTro YD8dLq bEUv6g %2BXZw aYqtaq 0bqfl% 2Fg9IQ a4ajBk vP9nXo QUaueC m3YtLR FvZlgJ JJ8mAn HZtai3 6t7738 AC0Kqa nmCUqa mKiQtr MwF INTERFACE [facility] [address] [facility] [address] [address], [place], [address], 03/12/2024 14:05:19 04/16/20 24 04/16/2024 XR, knee, 4 or more view http:/ [email or web address] ?Encry pted=s hAaTro YD8dLq bEUv6g %2BXZw aYqtaq 0bqfl% 2Fg9IQ a4ajBk vP9nXo QUaueC m3YtLR FvZlg JJ8mAn HZtai3 3m8486 AC0Kqa 3WNWaC uKiQtr MwF INTERFACE [facility] [address] [facility] [address] [address], [place], [address], 04/16/2024 10:38:06 04/16/20 24 04/16/2024 XR, knee, 4 or more view [email or web address] ?Encry pted=s hAaTro YD8dLq bEUv6g %2BXZw aYqtaq 0bqfl% 2Fg9IQ a4ajBk vP9nXo QUaueC m3YtLR FvZlgJ JJ8mAn HZtai3 7k9508 AC0Kqa 3WNWaC uKiQtr MwF INTERFACE [facility] Office [address] [address], [place], [address], 04/16/2024 10:38:08 12/01/19 25 11/30/2024 XR, knee, 4 or more view http:/ [email or web address] ?Encry pted=s hAaTro YD8dLq bEUv6g %2BXZw aYqtaq 0bqfl% 2Fg9IQ a4ajBk vP9nXo QUaueC m3YtLR FvZlgJ JJ8mAn HZtai3 9k9169 AC0Kla H2MUqS nKiQtr MwF INTERFACE [facility] Office [address] [address], [place], [address], 11/30/2024 13:18:37 12/01/19 25 11/30/2024 XR, knee, 4 or more view http:/ [email or web address] ?Encry pted=s hAaTro YD8dLq bEUv6g %2BXZw aYqtaq 0bqfl% 2Fg9IQ a4ajBk vP9nXo QUaueC m3YtLR FvZlgJ JJ8mAn HZtai3 5m8866 AC0Kla H2MUqS nKiQtr MwF INTERFACE [facility] [address], [address], 11/30/2024 13:18:38 Result Notes Documentation Provider Name and Address Organization Details Recorded Time Xr, Hip + Pelvis, Unilateral, 2 Or 3 View : [email or web address] Encrypted=jiWaYhbLC3cQdqR Uv6g%6HIFbhDtdxe6dgof%2Fg 2CCh7fqAlgF0iFfXQsnuMb6Fo GOBoByiUMI2qMfNNgyf05x102 8TG2FudmeVErlpWaNgaHnS Not Available [facility] 03/12/2024 14:05: 18 Xr, Hip + Pelvis, Unilateral, 2 Or 3 View : [email or web address] Encrypted=wqMvBhyRF8hSevS Uv6g%5QVBauTcjsb0reki%2Fg 8IQq3vvGgjR6dDoOVlacEm5Tc XIFbFjhBRE3nUcDCcbt92z655 3JU5BlapvWRceeXwVtxMvX Not Available [facility] 03/12/2024 14:05: 20 Xr, Knee, 4 Or More View : [email or web address] Encrypted=zsXpGdmYE0hCgmQ Uv6g%1LRBycFeuwn7zkjb%2Fg 9YGk3ssQovB4fFcRUkvaHq6Sq CYZcPhiRYB4rBhWOwhx86w723 4TU6Udk4HTRbVkBwLbaWsB Not Available [facility] 04/16/2024 10:38: 07 Xr, Knee, 4 Or More View : [email or web address]? Encrypted=sjKoIlxYL8qTxoF Uv6g%9SOPaxAelmh3xhrf%2Fg 7UXd6vlRusQ5oZqEVxzkBz5Tj JQRuRfnBAV1yHuVRhly13h296 6NN6Rvx6UHOdKlFhAyqQjQ Not Available [facility] 04/16/2024 10:38: 09 Xr, Knee, 4 Or More View : [email or web address]? Encrypted=khXlUxeLS6iCudX Uv6g%9WBZoiOndah4wtfw%2Fg 5UCw1lkQcxX7jDhGPhdpPj3Ro UOYkUkbYML5iZeVGaxn83q369 8ND9BpyW5MFeWzZlRnoKjT Not Available [facility] 11/30/2024 13:18: 37 Xr, Knee, 4 Or More View : [email or web address] Encrypted=gpOkSazCO3tNajY Uv6g%6SFWygBwwxe4mqtx%2Fg 4LMa3vdQqmD0qVwOLzldWk6Zt MBAhIajODV2uKiNUing43j366 0RW0FfaP9UVoTuReOfyMnU Not Available [facility] 11/30/2024 13:18: 39 Procedures Surgical History Date Name Laterality Status Provider Name and Address Organization Details Recorded Time 5 JZHip Inj completed Noam Yu PA-C [address], [place], [address], [facility] 11/30/2024 13:54:03 5 Knee Kenalog 40 1cc Injection, Bilateral completed Yadiel Bundy PA-C [address], [place], [address], [facility] 07/31/2024 10:29:38 5 JZHip Inj completed Yadiel Bundy PA-C [address], [place], [address], [facility] 07/31/2024 10:29:42 4 Knee Kenalog 40 1cc Injection, Bilateral completed Yadiel Bundy PA-C [address], [place], [address], [facility] 04/16/2024 14:05:28 4 Hip Kenalog 2cc Injection, L/R completed Yadiel Bundy PA-C [address], [place], [address], [facility] 03/12/2024 15:18:03 Imaging Results None recorded. Procedure Notes None recorded. Medical Equipment None Reported. Allergies Allergen ID Allergen Name Allergen Category Reaction Reaction Severity Criticality Documentation Date Start Date Code Code System Note Provider Name and Address Organization Details Recorded Time 915530 No known allergy (situatio n) Not available Not available Not available Not available 04/16/2024 39638 [facility] 10:24:27 No known drug allergies Medications Name Sig Start Date Stop Date Status Note LastModified by Organization Details LastModified Time carvedilol 12.5 mg tablet TAKE 1 TABLET BY MOUTH TWICE A DAY WITH FOOD active Not Available Not Available No t Available allopurinol 100 mg tablet TAKE 1 TABLET BY MOUTH 1 TIME EACH DAY. active Not Available Not Available No t Available Vitals Date Recorded Body height Body mass index (BMI) Body weight Provider Name and Address Organization Details Last Updated DateTime 07/31/2024 182.88 cm 30.5 kg/m2 409210.28 g Dang Suarez [facility] 07/31/2024 09:14:23 Date Recorded Body height Body mass index (BMI) Body weight Provider Name and Address Organization Details Last Updated DateTime 11/30/2024 182.88 cm 33.6 kg/m2 682414.91 g DANG NASCIMENTO [facility] 11/30/2024 12:50:38 Date Recorded Body height Body mass index (BMI) Body weight Provider Name and Address Organization Details Last Updated DateTime 04/16/2024 182.88 cm 30.5 kg/m2 179363.28 g Camelia Chandra [facility] 04/16/2024 10:26:16 Social History Question Answer Notes LastModified by [facility] Details LastModified Time Tobacco Smoking Status [facility]oker [facility] 04/16/2024 10:24:36 When Did You Quit Smoking? 16+yearssince lastcigarette Information not available 04/16/2024 What Is Your Relationship Status? Information not available 04/16/2024 How Many Years Have You Smoked Tobacco? 0 Information not available 04/16/2024 Sex: Unknown Functional Status Question Answer Note LastModified by [employer] Details LastModified Time How many times per week do you consume alcohol? 1-2 times per week Information not available 04/16/2024 Do you use any illicit or recreational drugs? No Information not available 04/16/2024 Do you or have you ever used any other forms of tobacco or nicotine? No Information not available 04/16/2024 Do you or have you ever used e-cigarettes or vape? Never used electronic cigarettes Information not available 04/16/2024 Mental Status None recorded. Family History Nothing Reported. Medical History Condition Response Kidney/Bladder Problems Y Arthritis Y Hypertension Y Past Encounters Encounter ID Performer Location Encounter Start Date Encounter Closed Date Diagnosis/Indication Diagnosis SNOMED-CT Code Diagnosis ICD10 Code Diagnosis Note [id number] JENNI Hicks [address] [place] [address] 03/12/2024 13:37:21 04/02/2024 15:21:52 Pain of right hip joint 6741942781 62783 M25.551 Trochanter ic bursitis of right hip 8398093957 31551 M70.61 [id number] JENNI Hicks [address] [place] [address] 04/16/2024 09:30:22 05/02/2024 07:37:57 Pain of knee region 3759878836 M25.561 M25.562 Primary go narthrosis, bilateral 080630751 M17.0 [id number] Yadiel Bundy PA-C [facility] [address] [place] [address] 07/31/2024 08:29:57 08/21/2024 08:19:02 Primary gonarthrosis, bilateral 762413828 M17.0 Trochanter ic bursitis of right hip 8464396500 52977 M70.61 [id number] JENNI Childers [address] [place] [address] 11/30/2024 12:23:52 12/12/2024 10:38:31 Pain of left knee joint 9210902452 34315 M25.562 Trochanter ic bursitis of right hip 4709871304 64796 M70.61 Primary go narthrosis, bilateral 201642618 M17.0 Health Concerns Section Related Observation LastModified by Organization Detai ls LastModified Time None Recorded Concern Status LastModified by Organization Details LastModified Time None Recorded Advance Directives Directive None Recorded Payers Insurance Date Sequence Insurance Name Policy Number Policy Almazan Covered Member ID Almazan Member ID Guarantor Name 12/12/2024 1 [employer] - MEDICARE ADVANTAGE PLAN (MEDICARE REPLACEMENT HMO) [id number] Poncho Brice [id number] Poncho Brice Notes Date Note Type Note Provider Name and Address Organization Details Recorded Time 03/12/2024 text/html I am seeing the patient today under the supervision of Dr. Hua Riojas who was available but who did not see the patient. HPI:Patient is a 79-year-old male presents to the office today with complaints of right hip pain. Patient states that pain in the right hip began in August without any specific inciting events or injuries. Pain started out as dull and achy and then in November continued to get worse. At this point pain has gotten slightly better and is not consistent. He has been utilizing Tylenol on an as-needed basis. He has been having increasing pain with getting up from a seated position as well as walking up and downstairs. He denies any groin pain. Pain is all laterally based. Past family, medical, social history and review of systems has been reviewed, updated and is located in the patient s chart. Examination:Well appearing 79-year-old male in no acute distress. He is alert and oriented x3. He uses a cane for ambulatory support. Examination of the right hip reveals no erythema, warmth, ecchymosis, or swelling. There is tenderness to palpation over the greater trochanter. Near full range of motion of the hip in all directions with no discomfort. Hip strength 5/5 against resistance in all directions. Negative KOKI test. Negative Stinchfield test. Calf is soft and nontender. 2 views of the right hip obtained and independently reviewed in the office today reveal well preserved joint space throughout the hip joint. No evidence of fracture. There is a small calcification noted over the greater trochanter. Impression:Right hip trochanteric bursitis/calcific tendinitis Plan:We discussed the role of conservative management including medications, physical therapy, injection.At this point the patient was to proceed with injection. Please see procedure note. They will follow up with us as scheduled. Yadiel Bundy PA-C [address] [facility] [address], [place], [address], [facility] 03/12/2024 15:18:31 04/16/2024 text/html I am seeing the patient today under the supervision of Dr. Medina who was available but who did not see the patient. HPI:Patient is a 79-year-old male who presents to the office today with complaint of bilateral knee pain. Patient states that he has developed pain over the last couple of years which has gradually gotten worse over time. He denies any specific inciting events or injuries. Pain is primarily with ambulation especially going down stairs as well as walking downhill. At rest he does not have any pain but he does have pain with standing. He rates it about 5. Has been utilizing Tylenol as needed for pain relief. Has been using sleeve knee braces for support and stability. He denies any catching or locking in the knee. Denies any instability. Past family, medical, social history and review of systems has been reviewed, updated and is located in the patient s chart. Examination: Well-appearing 79-year-old male in no acute distress. He is alert and oriented x 3. He ambulates with a symmetric gait. Bilateral knees reveal no erythema, warmth, ecchymosis, swelling. There is tenderness to palpation over both medial joint compartments. No tenderness over the lateral joint lines. Range of motion of the knees from 0-125 degrees. There is laxity with valgus stress testing of the bilateral knees. No laxity with varus stress testing. Knee strength 5/5 against resistance with flexion and extension. Negative Kirt test. Bilaterally. Negative Miroslava's maneuver bilaterally. Calves are soft and nontender. 4 views of the bilateral knees obtained and independently reviewed in the office today reveal fsyv-er-joks articulation within the medial joint compartment, subchondral sclerosis, osteophyte formation. Degenerative changes noted of the bilateral patellofemoral joints. No evidence of fracture. Impression:Bi-lateral Knee osteoarthritis Plan:We discussed the role of conservative management including medications, physical therapy, injection and bracing. At this point the patient was to proceed with injection. Please see procedure note. They will follow up with us as scheduled. Yadiel Bundy PA-C [address], [place], [address], [facility] 04/16/2024 14:06:10 07/31/2024 text/html I am seeing the patient today under the supervision of Dr. Jeter who was available but who did not see the patient. HPI:Patient presents today follow-up regarding their Bi-lateral knees as well as right hip bursitis. They have had difficulty up and down stairs sitting standing. Previous injection gave good relief until recent. Problems ambulating. Yxgr-jlq-thpjqsb medications are helping somewhat but not significantly. Pain is constant aching sometimes sharp pain with giving out sensations. He did also receive a bursal injection about 6 months ago which gave him good relief up until the last few weeks. No new injuries or falls. Past family, medical, social history and review of systems has been reviewed, updated and is located in the patient s chart. Examination:The patient is well appearing and in no apparent distress. Alert and oriented x3. Gait is symmetric. Examination of the Bi-lateral knee reveals no evidence of any edema, erythema, or warmth. No Deformity. Range of motion of the knee limited with mild discomfort at the end ranges. No effusion. Does have some tenderness to palpation about the medial hemijoint line. No tenderness to palpation about the lateral hemijoint line. Patellofemoral crepitus is noted. mild lateral ligamentous laxity. Negative Miroslava s. Calf is supple and nontender. Neurovascularly intact distally. Right hip has no erythema, warmth, ecchymosis. Tenderness is present over the lateral aspect. Near full range of motion of the hip in all directions with minimal discomfort. Impression:Bi-lateral Knee osteoarthritis, right hip trochanteric bursitis Plan:We discussed the role of conservative management including medications, physical therapy, injection and bracing. At this point the patient was to proceed with injection. Please see procedure note. They will follow up with us as scheduled. Yadiel Bundy PA-C [address] [facility] [address], [place], [address], [facility] 07/31/2024 10:30:22
--- OUTSIDE RECORDS SUMMARY | 2025-01-01 09:31 | XMS_ITS | Patient Health Record ---
Author Organization [facility] Address [address] [place] [address] Care Team Providers Care Fire Assistant Name Role Phone Brandon Kim MD Primary Care Provider Lloyd Carmona Unavailable [phone] Reason For Referral No Information Medications Medication SIG (Take, Route, Frequency, Duration) Notes Start Date End Date Status Colyte with Flavor Packs 240 GM as directed Orally as directed for 1 dose 05/03/2013 Active Colchicine 0.6 MG 1 tablet Orally prn gout for 30 day(s) Active Multi Vitamin Mens 1 po qd A ctive Vitamin C 1 po qd Active Valsartan 320-12.5 1/2 po qd A ctive Problems Problem Type SNOMED Code ICD Code Onset Dates Problem Status W/U Status Risk Notes Problem Colon cancer screening (V76.51) Active confirmed Problem History of adenomatous polyp of colon (938651751) History of adenomatous polyp of colon (V12.72) Active confirmed Plan Of Treatment Future Test Test Name Order Date COLONOSCOPY 05/03/2013 Insurance Providers Payer Name Payer Address Payer Phone Subscriber Number Group Number Insured Name Patient Relationship to Insured Coverage Start Date Coverage End Date [facility] [address] [place] [phone] [id number] PIERCE EVERETT Self - patient is the insured Medical (General) History Medical History History ICD Code HTN Denies [place],DM,CVA,Lung disease,renal dise ase Colonoscopy in 03/2003 with removal of a small tubular adenoma Gout Surgical History Surgery Date(Month/Year) hernia surgery
--- OUTSIDE RECORDS SUMMARY | 2025-01-01 09:31 | XMS_ITS | Clinical Summary ---
Author Organization [facility] Address [address] [place] [address] Phone Care Team Providers Care Wiping Cloth Cutter Name Role Phone Brandon Kim MD Primary Care Provider Allergies No known active allergies Medications carvedilol (COREG) 12.5 MG tablet Take 12.5 mg by mouth in the morning and 12.5 mg in the evening. Take with meals. 2 Active allopurinol (ZYLOPRIM) 100 MG tablet TAKE 1 TABLET BY MOUTH 1 TIME EACH DAY. 90 tablet 2 4 Active losartan (COZAAR) 50 MG tablet Take 1 tablet (50 mg total) by mouth 1 (one) time each day 30 tablet 3 5 01/04/20 25 Active losartan (COZAAR) 25 MG tablet TAKE 2 TABLETS BY MOUTH EVERY DAY 180 tablet 3 5 12/05/19 25 Discontinu ed(Reorder (does not appear on AVS)) Active Problems Problem Noted Date Diagnosed Date Stage 3b chronic kidney disease 02/20/2024 Adenoma of rectum 12/16/2021 Arthritis of knee 12/16/2021 Essential hypertension 12/16/2021 H/O: gout 12/16/2021 Blood chemistry outside reference range 10/09/19 21 Stage 3a chronic kidney disease 10/08/2020 Hypertensive renal disease 10/08/2020 Hyperuricemia 10/08/2020 Encounters Date Type Department Care Team Description 12/04/2024 [facility] [address] [facility] [address] [place] [id number] Teresa Her MA 11/29/2024 Refill [facility] [address] [place] [address] Thai Eli MD 11/29/2024 Refill [facility] [address] [place] [address] Thai Eli MD 11/24/2024 Refill [facility] [address] [place] [address] Thai Eli MD 11/23/2024 Refill [facility] [address] [place] [address] Thai Eli MD 11/22/2024 1:45 PM EDT Office Visit [facility] [address] [place] [address] Thai Eli MD Stage 3b chronic kidney disease (HCC) (Primary Dx); Hypertensive renal disease 11/22/2024 Refill [facility] [address] [place] [address] Thai Eli MD 11/22/2024 Refill [facility] [address] [place] [address] Thai Eli MD 11/15/2024 Orders Only [facility] [address] [address] Thai Eli MD from Last 3 Months Immunizations Immunization Administration Dates Next Due Influenza [...] Sign Reading Time Taken Comments Blood Pressure 138/104 11/22/2024 1:28 PM EDT Pulse 72 11/22/2024 1:28 PM EDT Temperature - - Respiratory Rate - - Oxygen Saturation 98% 11/22/2024 1:28 PM EDT Inhaled Oxygen Concentration - - Weight 113 kg (249 lb) 11/22/2024 1:28 PM EDT Height 182.9 cm (6') 03/19/2020 12:00 PM EDT Body Mass Index 33.77 03/19/2020 12:00 PM EDT Plan of Treatment Upcoming Encounters Date Type Department Care Team (Late st Contact Info) Description 05/27/2025 3:00 PM EST Office Visit [facility] [address] [place] [address] Thai Eli MD [address] [facility] [address] [place] [phone] Health Maintenance Due Date Last Done Comments Pneumococcal Vaccine: 50+ Ye ars (2 of 2 - PCV) 01/13/2021 01/14/2020 Influenza Vaccine (#1) 2025 06/16/2021 Pneumococcal Vaccine: Peds ( 0 to 5 Years) and At-Risk Patients (6 to 49 Years) Discontinued 01/14/2020 Hepatitis B Vaccine Aged Out No longe r eligible based on patient's age to complete this topic Procedures Procedure Name Priority Date/Time Associated Diagnosis Comments PROTEIN / CREATININE RATIO, URINE Routine 11/15/2024 9:49 AM EDT ALBUMIN, URINE, RANDOM Routine 11/15/2024 9:49 AM EDT VITAMIN D 25 HYDROXY Routine 11/15/2024 9:49 AM EDT PTH, INTACT (HC) Routine 11/15/2024 9:49 AM EDT ALBUMIN Routine 11/15/2024 9:49 AM EDT MAGNESIUM Routine 11/15/2024 9:49 AM EDT PHOSPHATE ( PHOSPHORUS) Routine 11/15/2024 9:49 AM EDT CALCIUM Routine 11/15/2024 9:49 AM EDT CREATININE, BLOOD Routine 11/15/2024 9:4 9 AM EDT BUN Routine 11/15/2024 9:49 AM EDT ELECTROLYTE PANEL Routine 11/15/2024 9:4 9 AM EDT URINALYSIS MICROSCOPIC W/REFLEX TO CULTURE Routine 11/15/2024 9:49 AM EDT CBC AND DIFFERENTIAL Routine 11/15/2024 9:49 AM EDT from Last 3 Months Results * (ABNORMAL) Creatinine (11/15/2024 9:49 AM EDT) Creatinine Serum 1.64(H) 0.5 - 1.4 mg/dL See order comments eGFR (Calc) 41 See orde r comments Comment: Chronic Kidney Disease: Estimated GFR < 60 mL/min/1.73m2 Severe Kidney Disease: Estimated GFR < 15 mL/min/1.73m2 11/15/2024 9:49 AM EDT 11/15/2024 9:49 AM EDT us Thai Eli MD LAB BLOOD ORDERABLES [facility] See order comments [place] [address] * (ABNORMAL) PTH, Intact (11/15/2024 9:49 AM EDT) Parathyroid Hormone, Intact 94.2(H) 8.7 - 77.1 pg/mL See order comments 11/15/2024 9:49 AM EDT 11/15/2024 9:49 AM EDT Thai Eli MD LAB [id number] SOLICITED RESULTS Final Result Performing Organization Address [facility]/ZIP Co de Phone Number [place] See order comments [place] [address] * (ABNORMAL) Urinalysis Microscopic w/Reflx to Culture (11/15/2024 9:49 AM EDT) Color Urine Yellow See orde r comments Appearance Urine Clear See order comments pH Urine 6.0 5.0 - 9.0 See order comments Glucose Urine Negative Negative mg/dL See order comments Blood, Urine Negative Negative See ord er comments Specific Temple Urine 1.020 1.005 - 1.025 See order comments Protein Urine 100 (2+)(A) Neg-Trace mg/dL See order comments Ketones, Urine Negative Negative mg/dL See order comments Nitrite, Urine Negative Negative See o rder comments Leukocyte Esterase Urine Negative Negative See order comments RBC, Urine 0-2 0 - 2 /HPF See orde r comments WBC 0-5 0 - 5 /HPF See order comments Squamous Epithelial, Urine 0-2 0 - 2 /HPF See order comments Bacteria, Urine None Seen None Seen See order comments Hyaline Casts, Urine 0-2 0 - 2 /LPF See order comments 11/15/2024 9:49 AM EDT 11/15/2024 9:49 AM EDT Narrative [place]IL[place] - 11/15/2024 10:18 AM EDT [id number] Urine, Clean Catch Thai Eli MD LAB URINE ORDERABLES Final Re sult Performing Organization Address [facility]/ZIP Co de Phone Number [place] See order comments [place] [address] * (ABNORMAL) Protein, Total, Random Urine w/Creatinine (Protein/Creat Ratio) (11/15/2024 9:49 AM EDT) Protein Urine Random 85(H) <12 mg/dL See order comments Protein/Creati nine Ratio, Urine 0.89(H) <0.2 See order comments Comment: The spot urine protein:creatinine ratio may increase to 0.3 during normal . 11/15/2024 9:49 AM EDT 11/15/2024 9:49 AM EDT Thai Eli MD LAB URINE ORDERABLES Final Re sult Performing Organization Address [facility] de Phone Number [place] See order comments [place] [address] * (ABNORMAL) Albumin, urine, random (11/15/2024 9:49 AM EDT) Creatinine, Urine 95.36 mg/dL Se e order comments Urine Microalbumin 620.0 mg/L See order comments Microalbumin/Crea tinine Ratio 650.1(H) <30 ug/mg cr See order comments Comment: Albumin/Creatinine Ratio Reference Ranges: Normal: < 30 ug/mg creatinine Microalbuminuria: 30 - 300 ug/mg creatinine Clinical Albuminuria: > 300 ug/mg creatinine 11/15/2024 9:49 AM EDT 11/15/2024 9:49 AM EDT Thai Eli MD LAB URINE ORDERABLES Final Re sult Performing Organization Address [facility] de Phone Number [place] See order comments [place] [address] * Vitamin D 25 Hydroxy (11/15/2024 9:49 AM EDT) Vitamin D, 25-Hydroxy 37.4 >30 ng/mL See order comments Comment: Health Based Reference Values* < 20 ng/mL Deficient 20-30 ng/mL Insufficient > 30 ng/mL Sufficient *Salazar JAMIL. N Engl J Med. 2007;[id number] There is no well-established upper level of normal vitamin D levels. Some laboratories use 50 ng/mL as an upper limit of normal. However, toxicity is patient-dependent and may occur at any level. Careful correlation with the patient's presentation is necessary and, if there is concern for vitamin D toxicity, treatment should be considered irrespective of the serum level. Care must be taken in interpreting Vitamin D results from different laboratories and methodologies. Published data demonstrated that results from patients undergoing hemodialysis may show a negative bias when tested with various automated 25-OH vitamin D assays when compared to LC-MS/MS. When testing samples from patients whose predominant form of Vitamin D is Vitamin D2, such as patients receiving Vitamin D2 supplementation, results that are subtherapeutic should be confirmed with another method such as LC-MS/MS. 11/15/2024 9:49 AM EDT 11/15/2024 9:49 AM EDT us Thai Eli MD LAB BLOOD ORDERABLES Final Re sult [place] See order comments [place] [address] * (ABNORMAL) CBC and Differential (11/15/2024 9:49 AM EDT) WBC 6.8 4.8 - 10.8 X10*3/uL See order comments RBC 5.13 4.60 - 5.80 X10*6/uL See order comments Hgb 15.3 14.0 - 18.0 g/dl See order comments Hematocrit 45.5 42.0 - 52.0 % See order comments MCV 88.7 80.0 - 98.0 fL See order comments MCH 29.8 27.0 - 33.0 pg See order comments MCHC 33.6 31.0 - 36.0 g/dl See order comments RDW 14.2 11.0 - 16.0 % See order comments Platelets 225 160 - 400 X10*3/uL See order comments MPV 10.1 9.4 - 12.4 fL See order comments Neutrophils % Auto 61.2 45 - 73 % See order comments Immature Granulocytes 0.4 0.0 - 0.4 % See order comments Lymphocytes Relative 21.8 20 - 40 % See order comments Monocytes 8.8 2 - 11 % See order comments Eosinophils Relative 6.9(H) 0 - 4 % See order comments Basophils Relative 0.9 0 - 2 % See order comments nRBC Count 0.0 0.0 - 0.2 /100WBC See order comments Neutrophils Absolute 4.1 2.0 - 8.3 x10*3/uL See order comments Immature Grans (Absolute) 0.03 0.00 - 0.03 X10*3/uL See order comments Lymphocytes Absolute 1.5 1.2 - 4.9 X10*3/uL See order comments Monocytes Absolute 0.6 0.1 - 1.2 X10*3/uL See order comments Eosinophils Absolute 0.5(H) 0.0 - 0.4 X10*3/uL See order comments Basophils Absolute 0.1 0.0 - 0.2 X10*3/uL See order comments NRBC Absolute 0.000 0.0 - 0.012 X10*3/uL See order comments 11/15/2024 9:49 AM EDT 11/15/2024 9:49 AM EDT us Thai Eli MD LAB BLOOD ORDERABLES Final Re sult Performing Organization Address [facility] de Phone Number [place] See order comments [place] [address] * (ABNORMAL) BUN (11/15/2024 9:49 AM EDT) BUN 21(H) 9 - 16 mg/dL See order comments 11/15/2024 9:49 AM EDT 11/15/2024 9:49 AM EDT us Thai Eli MD LAB BLOOD ORDERABLES Final Re sult Performing Organization Address [facility] de Phone Number [place] See order comments [place] [address] * Phosphorus (11/15/2024 9:49 AM EDT) Phosphorus, Serum 3.1 2.7 - 4.5 mg/dL See order comments 11/15/2024 9:49 AM EDT 11/15/2024 9:49 AM EDT us Thai Eli MD LAB BLOOD ORDERABLES Final Re sult Performing Organization Address [facility] Co de Phone Number [place] See order comments [place] [address] * Magnesium (11/15/2024 9:49 AM EDT) Magnesium 1.9 1.6 - 2.6 mg/dL See order comments 11/15/2024 9:49 AM EDT 11/15/2024 9:49 AM EDT us Thai Eli MD LAB BLOOD ORDERABLES Final Re sult Performing Organization Address [facility] Phone Number [place] See order comments [place] [address] * Calcium (11/15/2024 9:49 AM EDT) Calcium 9.2 8.4 - 10.2 mg/dL See order comments 11/15/2024 9:49 AM EDT 11/15/2024 9:49 AM EDT us Thai Eli MD LAB BLOOD ORDERABLES Final Re sult Performing Organization Address [facility] de Phone Number [facility] See order comments [place] [address] * Albumin (11/15/2024 9:49 AM EDT) Albumin 3.6 3.5 - 5.0 g/dL See order comments 11/15/2024 9:49 AM EDT 11/15/2024 9:49 AM EDT us Thai Eli MD LAB BLOOD ORDERABLES Final Re sult Performing Organization Address [facility] de Phone Number [facility] See order comments [place] [address] * (ABNORMAL) Electrolyte panel (11/15/2024 9:49 AM EDT) Sodium 147(H) 135 - 145 mmol/L See order comments Potassium 4.0 3.3 - 5.1 mmol/L See order comments Chloride 111(H) 96 - 108 mmol/L See order comments Bicarbonate (CO2) 26 22 - 29 mmol/L See order comments Anion Gap 14 12 - 20 See order comments 11/15/2024 9:49 AM EDT 11/15/2024 9:49 AM EDT us Thai Eli MD LAB BLOOD ORDERABLES Final Re sult [place] See order comments [place] [address] from Last [address] [place] [address] Care Teams Wiping Cloth Cutter Relationship Specialty Start Date End Date Brandon Kim MD [address] [place] [address] [id number] [place] PCP - General 07/07/20
[2025-01-01 10:03] LABS: Appearance Urine Clear; Glucose Urine UA Negative (Negative); PH 6.5 (5.0-9.0); Specific Gravity - Urine 1.015 (1.005-1.025); UMIC TRIGGER UACC YES
[2025-01-01 10:51] LABS: Anion Gap 12 (12-20); Blood Urea Nitrogen 18 mg/dL (9-16); Calcium 9.0 mg/dL (8.4-10.2); Carbon Dioxide 26 mmol/L (22-29); Chloride 109 mmol/L (96-108); Estimated Glomerular Filt Rate 37; Potassium 4.1 mmol/L (3.3-5.1); Sodium 143 mmol/L (135-145)
[2025-01-01 10:59] LABS: Microalbum/Creatinine Ratio Ur 377.5 ug/mg cr (<30); Protein/Creatinine Ratio, Ur 0.51 (<0.2); Total Protein Urine Random 40 mg/dL (<12)
== END 2025-01-01 09:09 | disposition home or self-care (01) ==
LOC: HO.10HDL 09:08
PROVIDERS: Visit Provider Internal Medicine Nephrology
DX: I12.9 Hypertensive chronic kidney disease with stage 1 through stage 4 chronic kidney disease, or unspecified chronic kidney disease (principal); N18.32 Chronic kidney disease, stage 3b
CPT/HCPCS: 36415; 80051; 81001; 82043; 82310; 82565; 82570; 84156; 84520

== ENCOUNTER 2025-05-21 08:58 | Outpatient (REF) | payer MEDICARE, SELFPAY ==
--- OUTSIDE RECORDS SUMMARY | 2025-05-21 09:36 | XMS_ITS | Continuity of Care Document ---
Author Organization [place] - [facility] Address [address] [place] [address] Care Team Providers Care [place] Name Role Phone DAKSHA LITTLE Primary Care Provider Assessment Encounter Date Assessment Date Assessment LastModified by Organization Details LastModified Time 05/06/2025 05/06/2025 Assessment: Patient able to achieve 120* of knee flexion. Moderate extension lag with SLR's but able to complete with no adverse effects. Moderately fatigued with addition of standing hip strengthening. Reviewed HEP. Plan: Continue PT @ 2x/wk for 8 weeks to decrease pain, increase ROM, optimize mechanics for functional mobility with gait and stairs, and facilitate independence with functional ADL's. [email or web address] Not available 05/06/2025 12:43:30 Plan of Treatment Reminders Order Date Submit Date Provider Last Modified By Organization Details Last Modified Time Details Appointments PT FOLLOW -UP 11:30AM Opal Wilder, PT Not available Not available Not available PT FOLLOW -UP 11:30AM Magnus Hernandez, [employer] INTELLIGENCE OFFICER Not available Not available Not available POST OP 10 025 02:00PM Josue Jeter MD Not available Not available Not available PT FOLLOW -UP 025 11:30AM Magnus Hernandez, [employer] INTELLIGENCE OFFICER Not available Not available Not available PT FOLLOW -UP 025 11:30AM Opal Wilder, PT Not available Not available Not available PT FOLLOW -UP 025 12:00PM Magnus Hernandez, M[employer] INTELLIGENCE OFFICER Not available Not available Not available PT FOLLOW -UP 025 12:00PM Magnus Hernandez, M[employer] INTELLIGENCE OFFICER Not available Not available Not available PT FOLLOW -UP 025 11:30AM Opal Wilder, PT Not available Not available Not available PT FOLLOW -UP 025 11:30AM Opal Wilder, PT Not available Not available Not available PT FOLLOW -UP 025 11:30AM Magnus Hernandez, M[employer] INTELLIGENCE OFFICER Not available Not available Not available Lab None record ed. Referral None record ed. Procedures None record ed. Surgeries None record ed. Imaging None record ed. Medication Orders None record ed. Patient Targets Encounter Date Encounter Id Patient Goals Patient Target Last Modified By Organization Details Last Modified Time 05/06/2025 [id number] STGs 3 weeks: 1. Improve (L) knee AROM to 0-120*. 2. Able to stand 20 min without rest breaks for meal prep. 3. Able to ambulate household distances with use of cane. LTGs 6 weeks: 1. Able to ambulate community distances without AD. 2. Able to navigate stairs reciprocally with use of handrail. 3. Able to complete sit to stand transfer without use of UEs. [email or web address] Not available 05/06/2025 10:48:35 Patient InstructionsNo instructions recorded. Reason for Referral None Reported. Results Created Date Observation Date Name Description Value Unit Range Abnormal Flag Note LastModifiedBy Organization Detail LastModifiedTime 04/15/2004/15/2025 XR, knee, 4 or more view No observ ation record ed. [facility] [address] [place], [address], 04/18/2025 10:21:01 04/29/20 25 04/29/2025 XR, knee, 3 view [email or web address] ?Encry pted=s hAaTro YD8dLq bEUv6g %2BXZw aYqtaq 0bqfl% 2Fg9IQ a4ajBk vP9nXo QUaueC m3YtLR FvZlgJ JJ8mAn HZtai3 9r9291 AC0KlY nqDWKu iKiQtr MwF INTERFACE [facility] [address] [facility] [address], [place], [address], 04/29/2025 11:20:19 04/29/2004/29/2025 XR, knee, 3 view [email or web address]:/ [email or web address] ?Encry pted=s hAaTro YD8dLq bEUv6g %2BXZw aYqtaq 0bqfl% 2Fg9IQ a4ajBk vP9nXo QUaueC m3YtLR FvZlgJ JJ8mAn HZtai3 2f6128 AC0KlY nqDWKu iKiQtr MwF INTERFACE [facility] [address], [place], [address], 04/29/2025 11:20:21 Result Notes None recorded. Problems Name Problem SNOMED Code Status Onset Date Resolution Date Notes Provider Name and Address Organization Details Recorded Time Osteoarthr itis of right knee joint 5820131300950 00 Active 2024 Josue Jeter MD [address], [place], [address] , [facility] 5 15:42:09 Osteoarthr itis of left knee joint 8326451610959 09 Active 2024 Josue Jeter MD [address], [facility] [place], [address] , [facility] 5 15:42:10 Problem Notes None recorded. Procedures Surgical History Date Name Laterality Status Provider Name and Address Organization Details Recorded Time 5 56810: Therapeutic Activities (1:1) active Opal Wilder, PT [address], [place], [address], [facility] 05/21/2025 08:30:09 5 89111 Therapeutic Exercise (1:1) active Opal Wilder, PT [address], [place], [address], [facility] 05/21/2025 08:30:09 5 90191: Therapeutic Activities (1:1) completed Opal Meño, PT [address], [place], [address], [facility] 05/20/2025 12:09:23 5 66947 Therapeutic Exercise (1:1) completed Opal Meño, PT [address], [place], [address], [facility] 05/20/2025 09:43:14 5 98621: Therapeutic Activities (1:1) completed Agudelo Mary, M[employer] INTELLIGENCE OFFICER [address], [place], [address], [facility] 05/15/2025 12:49:00 5 73463 Therapeutic Exercise (1:1) completed Agudelo Mary, M[employer] INTELLIGENCE OFFICER [address], [place], [address], [facility] 05/15/2025 11:24:48 5 44780 Therapeutic Exercise (1:1) completed Opal Meño, PT [address], [place], [address], [facility] 05/13/2025 09:34:46 5 01177 Therapeutic Exercise (1:1) completed Agudelo Mary, M[employer] INTELLIGENCE OFFICER [address], [place], [address], [facility] 05/07/2025 16:47:29 5 57055 Therapeutic Exercise (1:1) completed Agudelo Mary, M[employer] INTELLIGENCE OFFICER [address], [place], [address], [facility] 05/06/2025 12:44:09 5 28294 Therapeutic Exercise (1:1) completed Opal Lena, PT [address], [place], [address], [facility] 05/03/2025 09:33:55 5 56490 Therapeutic Exercise (1:1) completed Opal Lena, PT [address], [place], [address], [facility] 05/01/2025 12:45:58 5 42068 Therapeutic Exercise (1:1) completed Opal Lena, PT [address], [place], [address], [facility] 04/25/2025 08:18:44 5 82259: Low complexity PT Eval completed Opal Lena, PT [address], [place], [address], [facility] 04/25/2025 08:19:14 5 36658 Therapeutic Exercise (1:1) completed Opal Lena, PT [address], [place], [address], [facility] 01/18/2025 12:24:50 5 40144: Low complexity PT Eval completed Opal Lena, PT [address], [place], [address], [facility] 01/18/2025 12:24:51 5 JZHip Inj completed Noam Yu PA-C [address], [place], [address], [facility] 11/30/2024 13:54:03 5 Knee Kenalog 40 1cc Injection, Bilateral completed Yadiel Bundy PA-C [address], [place], [address], [facility] 07/31/2024 10:29:38 5 JZHip Inj completed Yadiel Bundy PA-C [address], [place], [address], [facility] 07/31/2024 10:29:42 4 Knee Kenalog 40 1cc Injection, Bilateral completed Yadiel Bundy PA-C [address], [place], [address], [facility] 04/16/2024 14:05:28 Hip Kenalog 2cc Injection, L/R completed Yadiel Bundy PA-C [address], [place], [address], [facility] 03/12/2024 15:18:03 Imaging Results None recorded. Procedure Notes None recorded. Medical Equipment None Reported. Allergies Allergen ID Allergen Name Allergen Category Reaction Reaction Severity Criticality Documentation Date Start Date Code Code System Note Provider Name and Address Organization Details Recorded Time 157263 No known allergy (situatio n) Not available Not available Not available Not available 04/16/2024 76175 6003 [facility] 10:24:27 No known drug allergies Medications Name Sig Start Date Stop Date Status Note LastModified by Organization Details LastModified Time losartan 50 mg tablet TAKE 1 TABLET BY MOUTH 1 TIME EACH DAY. active Not Available Not Available No t Available carvedilol 12.5 mg tablet TAKE 1 TABLET BY MOUTH TWICE A DAY WITH FOOD active Not Available Not Available No t Available allopurinol 100 mg tablet TAKE 1 TABLET BY MOUTH 1 TIME EACH DAY. active Not Available Not Available No t Available tramadol 50 mg tablet TAKE 1 TO 2 TABLETS BY MOUTH EVERY 6 HOURS NEEDED FOR MILD PAIN. DO NOT EXCEED 8 TABLETS (400MG) PER DAY. active Not Available Not Available No t Available hydromorphone 2 mg tablet TAKE 1 TO 2 TABLETS BY MOUTH EVERY 4 HOURS NEEDED FOR SEVERE PAIN active Not Available Not Available No t Available pantoprazole 40 mg tablet,delayed release TAKE 1 TABLET BY MOUTH EVERY DAY active Not Available Not Available No t Available Vitals None Recorded Social History Question Answer Notes LastModified by Organizat ion Details LastModified Time Tobacco Smoking Status Never Smoker Camelia mims [facility] 04/16/2024 10:24:36 When Did You Quit Smoking? 16+yearssince lastcigarette Information not available 04/16/2024 What Is Your Relationship Status? Information not available 04/16/2024 How Many Years Have You Smoked Tobacco? 0 Information not available 04/16/2024 Sex: Unknown Functional Status Question Answer Note LastModified by Organizat ion Details LastModified Time How many times per [...] History Nothing Reported. Medical History Condition Response Allergies/Hayfever N Coronary Artery Disease N Breathing or lung disorders N Anxiety/Depression N Emphysema N Nerve Disorders N Thyroid Problems N COPD N Pacemaker N Kidney/Bladder Problems N Anemia N Vascular Disease N Heart Trouble N Heart Attack ([place]) N Gastrointestinal Disease N Cholesterol N Diabetes N Autoimmune disease N Inflammatory Joint disease N Bleeding Disorder N Orthotics N Seizures/Epilepsy N Arthritis N Blood Clot N AIDS/HIV N Congestive Heart Failure (CHF) N Acid Reflux (GERD) N Cancer N Stroke N Asthma N Circulation Problems N Peripheral Vascular Disease N Sleep Apnea N Hepatitis N Heart Disease N Rheumatoid Arthritis N Pulmonary Embolism N Arrhythmia N Headaches N Fibromyalgia N Hypertension N Osteoporosis N Past Encounters Encounter ID Performer Location Encounter Start Date Encounter Closed Date Diagnosis/Indication Diagnosis SNOMED-CT Code Diagnosis ICD10 Code Diagnosis IMO Codes Diagnosis Note [id number] Opal Wilder, PT [facility] [address] [place] [address] 04/25/2025 11:22:17 04/25/2025 12:03:15 Surgical follow-up 736910039 Z47.1 Z96.652 [id number] JENNI Hicks 2[address] [place] [address] 04/29/2025 10:34:20 05/13/2025 13:40:35 History of left total knee replacement 8128314998 064980 Z96.652 [id number] Opal Wilder, PT [facility] [address] [place] [address] 05/01/2025 11:52:05 05/02/2025 07:41:43 Surgical follow-up [id number] Z47.1 Z96.652 [id number] Opal Wilder, PT [facility] [address] [place] [address] 05/03/2025 08:54:04 05/03/2025 09:42:21 Surgical follow-up [id number] Z47.1 Z96.652 [id number] Magnus Hernandez, M[employer] INTELLIGENCE OFFIC[facility] [address] [place] [address] 05/06/2025 11:22:32 05/06/2025 12:56:18 Surgical follow-up [id number] Z47.1 Z96.652 [id number] Health Concerns Section Related Observation LastModified by Organization Detai ls LastModified Time None Recorded Concern Status LastModified by Organization Details LastModified Time None Recorded Payers Encounter Date Sequence Insurance Name Policy Number Policy Almazan Covered Member ID Almazan Member ID Guarantor Name 05/06/2025 1 [employer] - MEDICARE ADVANTAGE PLAN (MEDICARE REPLACEMENT HMO) [id number] Poncho Brice [id number] Poncho Brice Notes Date Note Type Note Provider Name and Address Organization Details Recorded Time 05/06/2025 text/html Patient reports doing okay. He felt fine after last session and has been compliant with his HEP 3 times daily. Magnus Hernandez, M[employer] INTELLIGENCE OFFICER [address], [place], [address], [facility] 05/06/2025 12:44:27
--- OUTSIDE RECORDS SUMMARY | 2025-05-21 09:36 | XMS_ITS | Continuity of Care Document ---
Author Organization [place] - [facility], [place] [facility] [place] [facility] Address [address] [place] [address] Care Team Providers Care Restaurant Culinary Manager Name Role Phone DAKSHA LITTLE Primary Care Provider [phone] Assessment Encounter Date Assessment Date Assessment LastModified by Organization Details LastModified Time 05/01/2025 05/01/2025 Assessment: Good improvement with ROM (L) knee compared to previous session. Continues to have difficulty with terminal knee extension due to posterior knee tightness. Moderate extensor lag with SLR due to strength deficits. Plan: Continue PT @ 2x/wk for 8 weeks to decrease pain, increase ROM, optimize mechanics for functional mobility with gait and stairs, and facilitate independence with functional ADL's. [email or web address] Not available 05/01/2025 12:51:40 Plan of Treatment Reminders Order Date Submit Date Provider Last Modified By Organization Details Last Modified Time Details Appointments PT FOLLOW -UP 11:30AM Opal Wilder, PT Not available Not available Not available PT FOLLOW -UP 11:30AM Magnus Kenf, AIR HOIST OPERATOR Not available Not available Not available POST OP 10 02:00PM Josue Jeter MD Not available Not available Not available PT FOLLOW -UP 11:30AM Magnus Pugaraf, AIR HOIST OPERATOR Not available Not available Not available PT FOLLOW -UP 025 11:30AM Opal Wilder, PT Not available Not available Not available PT FOLLOW -UP 025 12:00PM Magnus Kenf, AIR HOIST OPERATOR Not available Not available Not available PT FOLLOW -UP 025 12:00PM Agudeloluz maria Pugaraf, AIR HOIST OPERATOR Not available Not available Not available PT FOLLOW -UP 11:30AM Opal Wilder, PT Not available Not available Not available PT FOLLOW -UP 025 11:30AM Opal Wilder, PT Not available Not available Not available PT FOLLOW -UP 025 11:30AM Magnus Hernandez, AIR HOIST OPERATOR Not available Not available Not available Lab None record ed. Referral None record ed. Procedures None record ed. Surgeries None record ed. Imaging None record ed. Medication Orders None record ed. Patient Targets Encounter Date Encounter Id Patient Goals Patient Target Last Modified By Organization Details Last Modified Time 05/01/2025 [id number] STGs 3 weeks: 1. Improve (L) knee [...] to stand transfer without use of UEs. [email or web address] Not available 05/01/2025 10:31:47 Patient InstructionsNo instructions recorded. Reason for Referral None Reported. Results Created Date Observation Date Name Description Value Unit Range Abnormal Flag Note LastModifiedBy Organization Detail LastModifiedTime 04/15/20 25 04/15/2025 XR, knee, 4 or more view No observ ation record ed. [facility] [address] [place], [address], 04/18/2025 10:21:01 04/29/20 25 04/29/2025 XR, knee, 3 view [email or web address]:/ [email or web address] ?Encry pted=s hAaTro YD8dLq bEUv6g %2BXZw aYqtaq 0bqfl% 2Fg9IQ a4ajBk vP9nXo QUaueC m3YtLR FvZlgJ JJ8mAn HZtai3 7x9495 AC0KlY nqDWKu iKiQtr MwF INTERFACE [facility] [address] [facility] [address] [place] [address], [place], [address], 04/29/2025 11:20:19 04/29/2004/29/2025 XR, knee, 3 view [email or web address]:/ [email or web address] ?Encry pted=s hAaTro YD8dLq bEUv6g %2BXZw aYqtaq 0bqfl% 2Fg9IQ a4ajBk vP9nXo QUaueC m3YtLR FvZlgJ JJ8mAn HZtai3 4b7897 AC0KlY nqDWKu iKiQtr MwF INTERFACE [facility] [address], [place], [address], 04/29/2025 11:20:21 Result Notes None recorded. Problems Name Problem SNOMED Code Status Onset Date Resolution Date Notes Provider Name and Address Organization Details Recorded Time Osteoarthr itis of right knee joint 7546184301810 00 Active 2024 Josue Jeter MD [address], [place], [address] , [facility] 5 15:42:09 Osteoarthr itis of left knee joint 2688524375353 09 Active 2024 Josue Jeter MD [address], [facility] [place] [place], [address] , [facility] 5 15:42:10 Problem Notes None recorded. Procedures Surgical History Date Name Laterality Status Provider Name and Address Organization Details Recorded Time 5 71818: Therapeutic Activities (1:1) active Opal Wilder, PT [address], [place], [address], [facility] 05/21/2025 08:30:09 5 80874 Therapeutic Exercise (1:1) active Opal Wilder, PT [address], [place], [address], [facility] 05/21/2025 08:30:09 5 08188: Therapeutic Activities (1:1) completed Opal Meño, PT [address], [place], [address], [facility] 05/20/2025 12:09:23 5 36412 Therapeutic Exercise (1:1) completed Opal [place], PT [address], [place], [address], [facility] 05/20/2025 09:43:14 5 34844: Therapeutic Activities (1:1) completed Agudelo Mary, AIR HOIST OPERATOR [address], [place], [address], [facility] 05/15/2025 12:49:00 90941 Therapeutic Exercise (1:1) completed Agudelo Mary, AIR HOIST OPERATOR [address], [place], [address], [facility] 05/15/2025 11:24:48 5 60077 Therapeutic Exercise (1:1) completed Opal Meño, PT [address], [place], [address], [facility] 05/13/2025 09:34:46 5 12327 Therapeutic Exercise (1:1) completed Agudelo Mary, AIR HOIST OPERATOR [address], [place], [address], [facility] 05/07/2025 16:47:29 5 82203 Therapeutic Exercise (1:1) completed Agudelo Mary, AIR HOIST OPERATOR [address], [place], [address], [facility] 05/06/2025 12:44:09 39574 Therapeutic Exercise (1:1) completed Opal [place], PT [address], [place], [address], [facility] 05/03/2025 09:33:55 5 83851 Therapeutic Exercise (1:1) completed Opal [place], PT [address], [place], [address], [facility] 05/01/2025 12:45:58 5 33208 Therapeutic Exercise (1:1) completed Opal [place], PT [address], [place], [address], [facility] 04/25/2025 08:18:44 5 50092: Low complexity PT Eval completed Opal Meño, PT [address], [place], [address], [facility] 04/25/2025 08:19:14 5 12489 Therapeutic Exercise (1:1) completed Opal [place], PT [address], [place], [address], [facility] 01/18/2025 12:24:50 5 23022: Low complexity PT Eval completed Opal [place], PT [address], [place], [address], [facility] 01/18/2025 12:24:51 5 JZHip Inj completed Noam Yu PA-C [address], [place], [address], [facility] 11/30/2024 13:54:03 5 Knee Kenalog 40 1cc Injection, Bilateral completed Yadiel Bundy PA-C [address], [place], [address], [facility] 07/31/2024 10:29:38 5 JZHip Inj completed Yadiel Bundy PA-C [address], [place], [address], [facility] 07/31/2024 10:29:42 4 Knee Kenalog 40 1cc Injection, Bilateral completed Yadiel Bundy PA-C [address], [place], [address], [facility] 04/16/2024 14:05:28 4 Hip Kenalog 2cc Injection, L/R completed Yadiel Bundy PA-C [address], [place], [address], [facility] 03/12/2024 15:18:03 Imaging Results None recorded. Procedure Notes None recorded. Medical Equipment None Reported. Allergies Allergen ID Allergen Name Allergen Category Reaction Reaction Severity Criticality Documentation Date Start Date Code Code System Note Provider Name and Address Organization Details Recorded Time 969488 No known allergy (situatio n) Not available Not available Not available Not available 04/16/2024 22598 6003 [facility]ED [facility] 10:24:27 No known drug allergies Medications Name [...] Tobacco Smoking Status Never Smoker Camelia mims [facility] 04/16/2024 10:24:36 When Did You Quit Smoking? [...] History Nothing Reported. Medical History Condition Response Coronary Artery Disease N Emphysema N COPD N Heart Trouble N Gastrointestinal Disease N Autoimmune disease N Arthritis N Blood Clot N Acid Reflux (GERD) N Cancer N Stroke N Circulation Problems N Rheumatoid Arthritis N Arrhythmia N Headaches N Fibromyalgia N Breathing or lung disorders N Nerve Disorders N Kidney/Bladder Problems N Bleeding Disorder N AIDS/HIV N Asthma N Peripheral Vascular Disease N Hepatitis N Pulmonary Embolism N Anxiety/Depression N Pacemaker N Vascular Disease N Inflammatory Joint disease N Orthotics N Allergies/Hayfever N Thyroid Problems N Anemia N Heart Attack (OR) N Cholesterol N Diabetes N Seizures/Epilepsy N Congestive Heart Failure (CHF) N Sleep Apnea N Heart Disease N Hypertension N Osteoporosis N Past Encounters Encounter ID Performer Location Encounter Start Date Encounter Closed Date Diagnosis/Indication Diagnosis SNOMED-CT Code Diagnosis ICD10 Code Diagnosis IMO Codes Diagnosis Note [id number] Opal Wilder, PT [facility] [address] [place] [address] 04/25/2025 11:22:17 04/25/2025 12:03:15 Surgical follow-up 866753122 Z47.1 Z96.652 [id number] JENNI Hicks 2nd [address] [place] [address] 04/29/2025 10:34:20 05/13/2025 13:40:35 History of left total knee replacement 2900895370 427931 Z96.652 [id number] Opal Wilder, PT [facility] [address] [place] [address] 05/01/2025 11:52:05 05/02/2025 07:41:43 Surgical follow-up 057482363 Z47.1 Z96.652 [id number] Health Concerns Section Related Observation LastModified by Organization Detai ls LastModified Time None Recorded Concern Status LastModified by Organization Details LastModified Time None Recorded Payers Encounter Date Sequence Insurance Name Policy Number Policy Almazan Covered Member ID Almazan Member ID Guarantor Name 05/01/2025 1 [employer] - MEDICARE ADVANTAGE PLAN (MEDICARE REPLACEMENT HMO) [id number] Poncho Brice [id number] Poncho Brice Notes Date Note Type Note Provider Name and Address Organization Details Recorded Time 05/01/2025 text/html Patient reports (L) knee is sore today. Reports f/u appointment Tuesday went well. Has been compliant with HEP 3x/day. Opal Wilder, PT [address], [place], [address], [facility] [place] [facility] 05/01/2025 12:51:52
--- OUTSIDE RECORDS SUMMARY | 2025-05-21 09:36 | XMS_ITS | Clinical Summary ---
Author Organization [facility] Address [address] [facility] [address] [place] [address] Phone Care Team Providers Care Surface Grinder Name Role Phone Brandon Kim MD Primary Care Provider Allergies No known active allergies Medications carvedilol (COREG) 12.5 MG tablet Take 12.5 mg by mouth in the morning and 12.5 mg in the evening. Take with meals. 10/22/2021 Active allopurinol (ZYLOPRIM) 100 MG tablet TAKE 1 TABLET BY MOUTH 1 TIME EACH DAY. 90 tablet 2 01/22/2025 Active losartan (COZAAR) 50 MG tablet TAKE 1 TABLET BY MOUTH 1 TIME EACH DAY. 90 tablet 1 03/01/2025 Active Active Problems Problem Noted Date Diagnosed Date Stage 3b chronic kidney disease 02/20/2024 Essential hypertension 12/16/2021 Stage 3a chronic kidney disease 10/08/2020 Hypertensive renal disease 10/08/2020 Encounters Date Type Department Care Team Description 03/01/2025 Refill [facility] [address] [place] [address] Thai Eli MD from Last 3 Months [...] Visit [facility] [address] [place] [address] Thai Eli MD [address] [facility] [address] [place] [address] Health Maintenance Due Date Last Done Comments Pneumococcal Vaccine: 50+ Years (2 of 2 - PCV) 01/13/2021 01/14/2020 Pneumococcal Vaccine: Peds (0 to 5 Years) and At-Risk Patients (6 to 49 Years) Discontinued 01/14/2020 Influenza Vaccine Completed 03/08/2025, 06/16/2021 Hepatitis B Vaccine Aged Out No longe r eligible based on patient's age to complete this topic Insurance [facility] Care Teams Surface Grinder Relationship Specialty Start Date End Date Brandon Kim MD [address] [place] [address] [address] [place] [address] PCP - General 07/07/20
--- OUTSIDE RECORDS SUMMARY | 2025-05-21 09:36 | XMS_ITS | Data Portability ---
Author Organization LETICIA - [facility], [facility] [place] Address [address] [place] [address] Care Team Providers Care Student Counsellor Name Role Phone DAKSHA LITTLE Primary Care [...] stairs, and facilitate independence with functional ADL's. Not available 05/06/2025 12:43:30 05/08/2025 05/08/2025 Assessment: Slight increase with knee flexion and extension this session. Decreased tolerance to therax, max fatigue reported after SLR's Plan: Continue PT @ 2x/wk for 8 weeks to decrease pain, increase ROM, optimize mechanics for functional mobility with gait and stairs, and facilitate independence with functional ADL's. [email or web address] Not available 05/08/2025 12:14:13 05/13/2025 05/13/2025 Assessment: Continues to have difficulty achieving full knee extension due to posterior knee tightness. Moderate forward flexed posture in standing due to hip flexor tightness, introduced to EOT stretch with manual assist required to decrease intensity of stretch. Continues to fatigue quickly with quad strengthening. Plan: Continue PT @ 2x/wk for 8 weeks to decrease pain, increase ROM, optimize mechanics for functional mobility with gait and stairs, and facilitate independence with functional ADL's. [email or web address] Not available 05/14/2025 08:59:24 05/15/2025 05/15/2025 Assessment: Challenged with quad sets into extension but completed with frequent breaks. Good tolerance to addition of standing hip strengthening. Plan: Continue PT @ 2x/wk for 8 weeks to decrease pain, increase ROM, optimize mechanics for functional mobility with gait and stairs, and facilitate independence with functional ADL's. Not available 05/15/2025 12:44:57 05/20/2025 05/20/2025 Assessment: Slight improvement with knee extension AAROM compared to previous session, continues to be limited by posterior knee tightness. Moderate UE assist required for standing hip strengthening due to impaired strength/balance . Frequent rest breaks required throughout session due to impaired endurance/activi ty tolerance. Plan: Continue PT @ 2x/wk for 8 weeks to decrease pain, increase ROM, optimize mechanics for functional mobility with gait and stairs, and facilitate independence with functional ADL's. [email or web address] Not available 05/20/2025 12:09:21 Plan of Treatment Reminders Order Date Submit Date Provider Last Modified By Organization Details Last Modified Time Details Appointments PT FOLLOW -UP 11:30AM Opal Meño, PT Not available Not available Not available PT FOLLOW -UP 11:30AM Opal Weld, PT Not available Not available Not available PT FOLLOW -UP 11:30AM Agudelo Mary, PRINTING PLATE SETTER Not available Not available Not available POST OP 10 02:00PM Josue Jeter MD Not available Not available Not available PT FOLLOW -UP 11:30AM Agudelo Mary, PRINTING PLATE SETTER Not available Not available Not available PT FOLLOW -UP 11:30AM Opal Meño, PT Not available Not available Not available PT FOLLOW -UP 12:00PM Agudelo Mary, PRINTING PLATE SETTER Not available Not available Not available PT FOLLOW -UP 12:00PM Agudelo Mary, PRINTING PLATE SETTER Not available Not available Not available PT FOLLOW -UP 11:30AM Opal Weld, PT Not available Not available Not available PT FOLLOW -UP 11:30AM Opal Weld, PT Not available Not available Not available PT FOLLOW -UP 025 11:30AM Magnus Hernandez, PRINTING PLATE SETTER Not available Not available Not available Lab None record ed. Referral None record ed. Procedures None record ed. Surgeries None record ed. Imaging None record ed. Medication Orders None record ed. Patient TargetsNo targets recorded. Patient InstructionsNo instructions recorded. Reason for Referral None Reported. Results Created Date Observation Date Name Description Value Unit Range Abnormal Flag Note LastModifiedBy Organization Detail LastModifiedTime 04/15/20 25 04/15/2025 XR, knee, 4 or more view No observ ation record ed. [facility] [address] [facility], [place], [address], 04/18/2025 10:21:01 04/29/20 25 04/29/2025 XR, knee, 3 view [email or web address] ?Encry pted=s hAaTro YD8dLq bEUv6g %2BXZw aYqtaq 0bqfl% 2Fg9IQ a4ajBk vP9nXo QUaueC m3YtLR FvZlgJ JJ8mAn HZtai3 1c6434 AC0KlY nqDWKu iKiQtr MwF INTERFACE [employer] [facility] [address] [facility] [address] [address], [place], [address], 04/29/2025 11:20:19 04/29/20 25 04/29/2025 XR, knee, 3 view [email or web address] ?Encry pted=s hAaTro YD8dLq bEUv6g %2BXZw aYqtaq 0bqfl% 2Fg9IQ a4ajBk vP9nXo QUaueC m3YtLR FvZlgJ JJ8mAn HZtai3 1c9739 AC0KlY nqDWKu iKiQtr MwF INTERFACE [employer] [facility] [address], [address], 04/29/2025 11:20:21 Result Notes None recorded. Problems Name Problem SNOMED Code Status Onset Date Resolution Date Notes Provider Name and Address Organization Details Recorded Time Osteoarthr itis of right knee joint 3324728414130 00 Active 2024 Josue Jeter MD [address], [place], [address] , [facility] 5 15:42:09 Osteoarthr itis of left knee joint 6497387882422 09 Active 2024 Josue Jeter MD [address], [place], [address] , [facility] 15:42:10 Problem Notes None recorded. Procedures Surgical History Date Name Laterality Status Provider Name and Address Organization Details Recorded Time 5 39807: Therapeutic Activities (1:1) completed Opal Wilder, PT [address], [place], [address], [facility] 05/20/2025 12:09:23 5 92160 Therapeutic Exercise (1:1) completed Opal Wilder, PT [address], [place], [address], [facility] 05/20/2025 09:43:14 5 13395: Therapeutic Activities (1:1) completed Magnus Hernandez, PRINTING PLATE SETTER [address], [place], [address], [facility] 05/15/2025 12:49:00 5 91965 Therapeutic Exercise (1:1) completed Magnus Hernandez, PRINTING PLATE SETTER [address], [place], [address], [facility] 05/15/2025 11:24:48 5 86239 Therapeutic Exercise (1:1) completed Opal Alvarezon, PT [address], [place], [address], [facility] 05/13/2025 09:34:46 5 63869 Therapeutic Exercise (1:1) completed Agudelo Mary, PRINTING PLATE SETTER [address], [place], [address], [facility] 05/07/2025 16:47:29 5 51329 Therapeutic Exercise (1:1) completed Agudelo Mary, PRINTING PLATE SETTER [address], [place], [address], [facility] 05/06/2025 12:44:09 5 73206 Therapeutic Exercise (1:1) completed Opal Weld, PT [address], [place], [address], [facility] 05/03/2025 09:33:55 5 29994 Therapeutic Exercise (1:1) completed Opal Meño, PT [address], [place], [address], [facility] 05/01/2025 12:45:58 5 71999 Therapeutic Exercise (1:1) completed Opal Meño, PT [address], [place], [address], [facility] 04/25/2025 08:18:44 5 59648: Low complexity PT Eval completed Opal Meño, PT [address], [place], [address], [facility] 04/25/2025 08:19:14 5 13179 Therapeutic Exercise (1:1) completed Opal Weld, PT [address], [place], [address], [facility] 01/18/2025 12:24:50 5 05391: Low complexity PT Eval completed Opal Meño, PT [address], [place], [address], [facility] 01/18/2025 12:24:51 5 JZHip Inj completed Noam Yu PA-C [address], [place], [address], [facility] 11/30/2024 13:54:03 5 Knee Kenalog 40 1cc Injection, Bilateral completed Yadiel Bundy PA-C [address], [place], [address], [facility] 07/31/2024 10:29:38 5 JZHip Inj completed Yadiel Bundy PA-C [address], [place], [address], [facility] 07/31/2024 10:29:42 4 Knee Kenalog 40 1cc Injection, Bilateral completed Yadiel Bundy PA-C [address], [place], [address], [facility] 04/16/2024 14:05:28 4 Hip Kenalog 2cc Injection, L/R completed Yadiel Bundy PA-C [address], [place], [address], [facility] 03/12/2024 15:18:03 Imaging Results None recorded. Procedure Notes None recorded. Medical Equipment None Reported. Allergies Allergen ID Allergen Name Allergen Category Reaction Reaction Severity Criticality Documentation Date Start Date Code Code System Note Provider Name and Address Organization Details Recorded Time 412409 No known allergy (situatio n) Not available Not available Not available Not available 04/16/2024 02764 6003 SNOMED Camelia mims, [facility] 4 10:24:27 No known drug allergies Medications Name [...] Tobacco Smoking Status Never Smoker Camelia mims [place] - [place] [facility] 04/16/2024 10:24:36 When Did You Quit Smoking? [...] Response Allergies/Hayfever N Coronary Artery Disease N Anxiety/Depression N Breathing or lung disorders N Emphysema N Nerve Disorders N Thyroid Problems N COPD N Pacemaker N Anemia N Kidney/Bladder Problems N Vascular Disease N Heart Trouble N Heart Attack ([place]) N Gastrointestinal Disease N Cholesterol N Diabetes N Autoimmune disease N Inflammatory Joint disease N Bleeding Disorder N Orthotics N Arthritis N Seizures/Epilepsy N Blood Clot N AIDS/HIV N Congestive Heart Failure (CHF) N Acid Reflux (GERD) N Cancer N Stroke N Asthma N Circulation Problems N Peripheral Vascular Disease N Sleep Apnea N Hepatitis N Heart Disease N Rheumatoid Arthritis N Arrhythmia N Pulmonary Embolism N Headaches N Fibromyalgia N Hypertension N Osteoporosis N Past Encounters Encounter ID Performer Location Encounter Start Date Encounter Closed Date Diagnosis/Indication Diagnosis SNOMED-CT Code Diagnosis ICD10 Code Diagnosis IMO Codes Diagnosis Note [id number] JENNI Hicks [address] [place] [address] 03/12/2024 13:37:21 04/02/2024 15:21:52 Pain of right hip joint 4120420283 00019 M25.551 Trochanter ic bursitis of right hip 1116149188 12542 M70.61 [id number] JENNI Hicks [address] [place] [address] 04/16/2024 09:30:22 05/02/2024 07:37:57 Pain of knee region 1864111863 M25.561 M25.562 [id number] Primary go narthrosis, bilateral 354485357 M17.0 [id number] JENNI Hciks [address] [place] [address] 07/31/2024 08:29:57 08/21/2024 08:19:02 Primary gonarthrosis, bilateral 263203990 M17.0 [id number] Trochanter ic bursitis of right hip 2760592612 85284 M70.61 [id number] JENNI Childers [address] [place] [address] 11/30/2024 12:23:52 12/12/2024 10:38:31 Pain of left knee joint 4471657088 67281 M25.562 661643 Trochanter ic bursitis of right hip 3656391667 99843 M70.61 [id number] Primary go narthrosis, bilateral 945577773 M17.0 [id number] MD MICHELA Thomas [address] [place] [address] 01/08/2025 14:29:20 01/17/2025 08:13:52 Osteoarthritis of right knee joint 2825556436 55474 M17.11 9594833 Osteoarthr itis of left knee joint 2790169741 11891 M17.12 [id number] Opal Wilder, PT [facility] [address] [place] [address] 01/17/2025 13:13:22 01/18/2025 15:00:45 Osteoarthritis of left knee joint 6376455643 56648 M17.12 [id number] Opal Wilder, PT [facility] [address] [place] [address] 04/25/2025 11:22:17 04/25/2025 12:03:15 Surgical follow-up [id number] Z47.1 Z96.652 [id number] JENNI Hicks - [address] [place] [address] 04/29/2025 10:34:20 05/13/2025 13:40:35 History of left total knee replacement 8174010284 430971 Z96.652 [id number] Opal Wilder, PT [facility] [address] [place] [place] [address] 05/01/2025 11:52:05 05/02/2025 07:41:43 Surgical follow-up 656153521 Z47.1 Z96.652 [id number] Opal Wilder, PT [facility] [address] [place] [place] [address] 05/03/2025 08:54:04 05/03/2025 09:42:21 Surgical follow-up [id number] Z47.1 Z96.652 [id number] Magnus Kenf, PR[employer]ING PLATE [employer]TER [facility] [address] [place] [address] 05/06/2025 11:22:32 05/06/2025 12:56:18 Surgical follow-up [id number] Z47.1 Z96.652 [id number] Agudelo Mary, PRINTING PLATE SETTER [facility] [address] [place] [address] 05/08/2025 11:20:53 05/08/2025 13:11:03 Surgical follow-up [id number] Z47.1 Z96.652 [id number] Opal Wilder, PT [facility] [address] [place] [address] 05/13/2025 11:22:54 05/13/2025 13:23:28 Surgical follow-up [id number] Z47.1 Z96.652 [id number] Magnus Hernandez, PRINTING PLATE SETTER [facility] [address] [place] [address] 05/15/2025 11:21:48 05/15/2025 13:41:14 Surgical follow-up [id number] Z47.1 Z96.652 [id number] Opal Wilder, PT [facility] [address] [place] [address] 05/20/2025 11:25:44 05/20/2025 12:49:59 Surgical follow-up [id number] Z47.1 Z96.652 [id number] Health Concerns Section Related Observation LastModified by Organization Detai ls LastModified Time None Recorded Concern Status LastModified by Organization Details LastModified Time None Recorded Advance Directives Directive None Recorded Payers Insurance Date Sequence Insurance Name Policy Number Policy Almazan Covered Member ID Almazan Member ID Guarantor Name 05/17/2025 1 [employer] - MEDICARE ADVANTAGE PLAN (MEDICARE REPLACEMENT HMO) [id number] Poncho Brice [id number] Poncho Brice Notes Date Note Type Note Provider Name and Address Organization Details Recorded Time 05/06/2025 text/html Patient reports doing okay. He felt fine after last session and has been compliant with his HEP 3 times daily. Magnus Hernandez PRINTING PLATE SETTER [address], [place], [address], [facility] [place] [facility] 05/06/2025 12:44:27 05/08/2025 text/html Patient reports feeling a bit achy and fatigued today. He was sore after last session but it was tolerable. Magnus Hernandez PRINTING PLATE SETTER [address], [place], [address], [facility] 05/08/2025 12:17:09 05/13/2025 text/html Patient reports (B) knees feeling achy today, thinks it is due to the weather. Continues to work on extension at home. Opal Wilder, PT [address], [place], [address], [facility] 05/14/2025 08:59:35 05/15/2025 text/html Patient reports L knee is feeling better then his right today. He feels he is making good progress and walking has improved. Magnus Hernandez, PRINTING PLATE SETTER [address], [place], [address], [facility] 05/15/2025 12:49:15 05/20/2025 text/html Patient reports (L) knee has been feeling pretty good overall. Reports contralateral knee has been more painful. Opal Wilder, PT [address], [place], [address], [facility] 05/20/2025 12:09:41
--- OUTSIDE RECORDS SUMMARY | 2025-05-21 09:36 | XMS_ITS | Continuity of Care Document ---
Author Organization [place] - [facility], [facility] Address [address] [place] [address] Care Team Providers Care Tower Hoist Operator Name Role Phone SIDNEY DAKSHA Primary Care Provider Assessment Encounter Date Assessment Date Assessment LastModified by Organization Details LastModified Time 05/20/2025 05/20/2025 Assessment: Slight improvement with knee [...] stairs, and facilitate independence with functional ADL's. [email or web address] Not available 05/20/2025 12:09:21 Plan of Treatment Reminders Order Date Submit Date Provider Last Modified By Organization Details Last Modified Time Details Appointments PT FOLLOW -UP 11:30AM Opal Wilder, PT Not available Not available Not available PT FOLLOW -UP 11:30AM Magnus Hernandez, CURRICULUM DEVELOPMENT COORDINATOR Not available Not available Not available POST OP 10 02:00PM Josue Jeter MD Not available Not available Not available PT FOLLOW -UP 11:30AM Magnus Hernandez, CURRICULUM DEVELOPMENT COORDINATOR Not available Not available Not available PT FOLLOW -UP 11:30AM Opal Wilder, PT Not available Not available Not available PT FOLLOW -UP 12:00PM Magnus Hernandez CURRICULUM DEVELOPMENT COORDINATOR Not available Not available Not available PT FOLLOW -UP 12:00PM Magnus Hernandez, CURRICULUM DEVELOPMENT COORDINATOR Not available Not available Not available PT FOLLOW -UP 11:30AM Opal Wilder, PT Not available Not available Not available PT FOLLOW -UP 025 11:30AM Opal Wilder, PT Not available Not available Not available PT FOLLOW -UP 025 11:30AM Magnus Hernandez, CURRICULUM DEVELOPMENT COORDINATOR Not available Not available Not available Lab None record ed. Referral None record ed. Procedures None record ed. Surgeries None record ed. Imaging None record ed. Medication Orders None record ed. Patient Targets Encounter Date Encounter Id Patient Goals Patient Target Last Modified By Organization Details Last Modified Time 05/20/2025 [id number] STGs 3 weeks: 1. Improve (L) knee [...] to stand transfer without use of UEs. [email or web address] Not available 05/20/2025 09:43:14 Patient InstructionsNo instructions recorded. Reason for Referral None Reported. Results Created Date Observation Date Name Description Value Unit Range Abnormal Flag Note LastModifiedBy Organization Detail LastModifiedTime 04/29/2004/29/2025 XR, knee, 3 view [email or web address]:/ [email or web address] ?Encry pted=s hAaTro YD8dLq bEUv6g %2BXZw aYqtaq 0bqfl% 2Fg9IQ a4ajBk vP9nXo QUaueC m3YtLR FvZlgJ JJ8mAn HZtai3 6w1395 AC0KlY nqDWKu iKiQtr MwF INTERFACE [facility] [address] [facility] [address], [place], [address], 04/29/2025 11:20:19 04/29/2004/29/2025 XR, knee, 3 view [email or web address] ?Encry pted=s hAaTro YD8dLq bEUv6g %2BXZw aYqtaq 0bqfl% 2Fg9IQ a4ajBk vP9nXo QUaueC m3YtLR FvZlgJ JJ8mAn HZtai3 8m6715 AC0KlY nqDWKu iKiQtr MwF INTERFACE [facility] [address], [place], [address], 04/29/2025 11:20:21 Result Notes None recorded. Problems Name Problem SNOMED Code Status Onset Date Resolution Date Notes Provider Name and Address Organization Details Recorded Time Osteoarthr itis of right knee joint 6179530816640 00 Active 2024 Josue Jeter MD [address], [place], [address] , [facility] 5 15:42:09 Osteoarthr itis of left knee joint [id number] 09 Active 2024 Josue Jeter MD [address], [place], [address] , [facility] 5 15:42:10 Problem Notes None recorded. Procedures Surgical History Date Name Laterality Status Provider Name and Address Organization Details Recorded Time 5 83903: Therapeutic Activities (1:1) active Opal Wilder, PT [address], [place], [address], [facility] 05/21/2025 08:30:09 5 56952 Therapeutic Exercise (1:1) active Opal Wilder, PT [address], [place], [address], [facility] 05/21/2025 08:30:09 5 92996: Therapeutic Activities (1:1) completed Opal Wilder, PT [address], [place], [address], [facility] 05/20/2025 12:09:23 5 98274 Therapeutic Exercise (1:1) completed Opal Meño, PT [address], [place], [address], [facility] 05/20/2025 09:43:14 5 85239: Therapeutic Activities (1:1) completed Agudelo Mary, CURRICULUM DEVELOPMENT COORDINATOR [address], [place], [address], [facility] 05/15/2025 12:49:00 5 15208 Therapeutic Exercise (1:1) completed Agudelo Mary, CURRICULUM DEVELOPMENT COORDINATOR [address], [place], [address], [facility] 05/15/2025 11:24:48 5 24272 Therapeutic Exercise (1:1) completed Opal Meño, PT [address], [place], [address], [facility] 05/13/2025 09:34:46 5 04472 Therapeutic Exercise (1:1) completed Agudelo Mary, CURRICULUM DEVELOPMENT COORDINATOR [address], [place], [address], [facility] 05/07/2025 16:47:29 5 23405 Therapeutic Exercise (1:1) completed Agudelo Mary, CURRICULUM DEVELOPMENT COORDINATOR [address], [place], [address], [facility] 05/06/2025 12:44:09 5 63766 Therapeutic Exercise (1:1) completed Opal Meño, PT [address], [place], [address], [facility] 05/03/2025 09:33:55 5 82806 Therapeutic Exercise (1:1) completed Opal Meño, PT [address], [place], [address], [facility] 05/01/2025 12:45:58 5 71641 Therapeutic Exercise (1:1) completed Opal Bland, PT [address], [place], [address], [facility] 04/25/2025 08:18:44 5 10043: Low complexity PT Eval completed Opal Bland, PT [address], [place], [address], [facility] 04/25/2025 08:19:14 5 35385 Therapeutic Exercise (1:1) completed Opal Meño, PT [address], [place], [address], [facility] 01/18/2025 12:24:50 5 05867: Low complexity PT Eval completed Opal Bland, PT [address], [place], [address], [facility] 01/18/2025 12:24:51 5 JZHip Inj completed Noam Yu PA-C [address], [place], [address], [facility] 11/30/2024 13:54:03 5 Knee Kenalog 40 1cc Injection, Bilateral completed Yadiel Bundy PA-C [address], [place], [address], [facility] 07/31/2024 10:29:38 5 JZHip Inj completed Yadiel Bundy PA-C [address], [place], [address], [facility] 07/31/2024 10:29:42 4 Knee Kenalog 40 1cc Injection, Bilateral completed Yadiel Bundy PA-C [address], [place], [address], [facility] 04/16/2024 14:05:28 4 Hip Kenalog 2cc Injection, L/R completed Yadiel Bundy PA-C [address], [place], [address], [facility] 03/12/2024 15:18:03 Imaging Results None recorded. Procedure Notes None recorded. Medical Equipment None Reported. Allergies Allergen ID Allergen Name Allergen Category Reaction Reaction Severity Criticality Documentation Date Start Date Code Code System Note Provider Name and Address Organization Details Recorded Time 859186 No known allergy (situatio n) Not available Not available Not available Not available 04/16/2024 75779 6003 SNOMED Camelia mims [facility] 10:24:27 No known drug allergies Medications [...] Social History Question Answer Notes LastModified by [employer] Details LastModified Time Tobacco Smoking Status Never Smoker Camelia mims [facility] 04/16/2024 10:24:36 When Did You Quit Smoking? 16+yearssince lastcigarette Information not available 04/16/2024 What Is Your Relationship Status? Information not available 04/16/2024 How Many Years Have You Smoked Tobacco? 0 Information not available 04/16/2024 Sex: Unknown Functional Status Question Answer Note LastModified by [employer] Details LastModified Time How many times [...] N Vascular Disease N Heart Trouble N Gastrointestinal Disease N Heart Attack ([place]) N Cholesterol N Diabetes N Autoimmune disease N Bleeding Disorder N Inflammatory Joint disease N Orthotics N Arthritis N Seizures/Epilepsy N [...] ICD10 Code Diagnosis IMO Codes Diagnosis Note [id number] Opal Wilder, PT [facility] [address] [place] [address] 04/25/2025 11:22:17 04/25/2025 12:03:15 Surgical follow-up [id number] Z47.1 Z96.652 [id number] JENNI Hicks 2[address] [facility] [place] [address] 04/29/2025 10:34:20 05/13/2025 13:40:35 History of left total knee replacement [id number] 810053 Z96.652 [id number] Opal Bland, PT [facility] [address] [place] [address] 05/01/2025 11:52:05 05/02/2025 07:41:43 Surgical follow-up [id number] Z47.1 Z96.652 [id number] Opal Meño, PT [facility] [address] [place] [address] 05/03/2025 08:54:04 05/03/2025 09:42:21 Surgical follow-up [id number] Z47.1 Z96.652 [id number] Magnus Hernandez, CURRICULUM DEVELOPMENT COORDINATOR [facility] [address] [place] [address] 05/06/2025 11:22:32 05/06/2025 12:56:18 Surgical follow-up [id number] Z47.1 Z96.652 [id number] Magnus Hernandez, CURRICULUM DEVELOPMENT COORDINATOR [facility] [address] [place] [address] 05/08/2025 11:20:53 05/08/2025 13:11:03 Surgical follow-up [id number] Z47.1 Z96.652 [id number] Opal Wilder, PT [facility] [address] [place] [address] 05/13/2025 11:22:54 05/13/2025 13:23:28 Surgical follow-up [id number] Z47.1 Z96.652 [id number] Magnus Hernandez, CURRICULUM DEVELOPMENT COORDINATOR [facility] [address] [place] [address] 05/15/2025 11:21:48 05/15/2025 13:41:14 Surgical follow-up [id number] Z47.1 Z96.652 [id number] Opal Wilder, PT [facility] [address] [place] [address] 05/20/2025 11:25:44 05/20/2025 12:49:59 Surgical follow-up [id number] Z47.1 Z96.652 [id number] Health Concerns Section Related Observation LastModified by Organization Detai ls LastModified Time None Recorded Concern Status LastModified by Organization Details LastModified Time None Recorded Payers Encounter Date Sequence Insurance Name Policy Number Policy Almazan Covered Member ID Almazan Member ID Guarantor Name 05/20/2025 1 [employer] - MEDICARE ADVANTAGE PLAN (MEDICARE REPLACEMENT HMO) [id number] Poncho Brice [id number] Poncho Brice Notes Date Note Type Note Provider Name and Address Organization Details Recorded Time 05/20/2025 text/html Patient reports (L) knee has been feeling pretty good overall. Reports contralateral knee has been more painful. Opal Wilder, PT [address] [facility] [address], [place], [address], [facility] 05/20/2025 12:09:41
--- OUTSIDE RECORDS SUMMARY | 2025-05-21 09:36 | XMS_ITS | Continuity of Care Document ---
Author Organization [facility], MICHELA [facility] PT Address [address] [place] [address] Care Team Providers Care Speech Therapist Technician Name Role Phone DAKSHA LITTLE Primary Care Provider Assessment Encounter Date Assessment Date Assessment LastModified by Organization Details LastModified Time 04/25/2025 04/25/2025 Assessment: Patient presents with signs and symptoms consistent with TKA, including swelling, decreased ROM, strength, and antalgic gait mechanics. Plan: Continue PT @ 2x/wk for 8 weeks to decrease pain, increase ROM, optimize mechanics for functional mobility with gait and stairs, and facilitate independence with functional ADL's. Not available 04/29/2025 10:22:44 Plan of Treatment Reminders Order Date Submit Date Provider Last Modified By Organization Details Last Modified Time Details Appointments PT FOLLOW -UP 11:30AM Opalgustavo Wilder, PT Not available Not available Not available PT FOLLOW -UP 11:30AM Agudelo Mary, SECTION SUPERVISOR Not available Not available Not available POST OP 10 025 02:00PM Josue Jeter MD Not available Not available Not available PT FOLLOW -UP 025 11:30AM Agudelo Mary, SECTION SUPERVISOR Not available Not available Not available PT FOLLOW -UP 025 11:30AM Opalgustavo Alvarezon, PT Not available Not available Not available PT FOLLOW -UP 025 12:00PM Agudelo Mary, SECTION SUPERVISOR Not available Not available Not available PT FOLLOW -UP 025 12:00PM Agudelo Mary, SECTION SUPERVISOR Not available Not available Not available PT FOLLOW -UP 11:30AM Opal Wilder, PT Not available Not available Not available PT FOLLOW -UP 025 11:30AM Opal Wilder, PT Not available Not available Not available PT FOLLOW -UP 025 11:30AM Magnus Hernandez, SECTION SUPERVISOR Not available Not available Not available Lab None record ed. Referral None record ed. Procedures None record ed. Surgeries None record ed. Imaging None record ed. Medication Orders None record ed. Patient Targets Encounter Date Encounter Id Patient Goals Patient Target Last Modified By Organization Details Last Modified Time 04/25/2025 [id number] STGs 3 weeks: 1. Improve (L) knee [...] to stand transfer without use of UEs. Not available 04/29/2025 10:24:33 Patient InstructionsNo instructions recorded. Reason for Referral None Reported. Results Created Date Observation Date Name Description Value Unit Range Abnormal Flag Note LastModifiedBy Organization Detail LastModifiedTime 04/15/2004/15/2025 XR, knee, 4 or more view No observ ation record ed. [facility] [address] [place], [address], 04/18/2025 10:21:01 04/29/20 25 04/29/2025 XR, knee, 3 view [email or web address]:/ [email or web address] ?Encry pted=s hAaTro YD8dLq bEUv6g %2BXZw aYqtaq 0bqfl% 2Fg9IQ a4ajBk vP9nXo QUaueC m3YtLR FvZlgJ JJ8mAn HZtai3 8o0393 AC0KlY nqDWKu iKiQtr MwF INTERFACE [facility] [address] [address], [place], [address], 04/29/2025 11:20:19 04/29/20 25 04/29/2025 XR, knee, 3 view [email or web address]:/ [email or web address] ?Encry pted=s hAaTro YD8dLq bEUv6g %2BXZw aYqtaq 0bqfl% 2Fg9IQ a4ajBk vP9nXo QUaueC m3YtLR FvZlgJ JJ8mAn HZtai3 0g1107 AC0KlY nqDWKu iKiQtr MwF INTERFACE [facility] [address], [place], [address], 04/29/2025 11:20:21 Result Notes Documentation Provider Name and Address Organization Details Recorded Time Xr, Knee, 3 View : [email or web address] Encrypted=goWfWpkSM2zXhhX Uv6g%3LEScnAbysh5mmzd%2Fg 0TEm3uzKoiE1fJcGAtmkLw8El OXAaZxwARX5hKrDSrjr10v214 9OS7GwUopVQNbvPuNdhAgR Not Available [facility] 04/29/2025 11:20: 20 Xr, Knee, 3 View : [email or web address] Encrypted=juFlKsgWP2pQenE Uv6g%2WHQwhXqlft8lbfj%2Fg 4KKm4pnFpxL4gKxPXmvfFg1Jo RYUzUpfIFZ2tNqFScdi13n864 1FA2KuIwtYVFrdGuBwqZdU Not Available [facility] 04/29/2025 11:20: 21 Problems Name Problem SNOMED Code Status Onset Date Resolution Date Notes Provider Name and Address Organization Details Recorded Time Osteoarthr itis of right knee joint 1449438959476 00 Active 2024 Josue Jeter MD [address], [place], [address] , [facility] 15:42:09 Osteoarthr itis of left knee joint 2431068726411 09 Active 2024 Josue Jeter MD [address], [place], [address] , [facility] 15:42:10 Problem Notes None recorded. Procedures Surgical History Date Name Laterality Status Provider Name and Address Organization Details Recorded Time 5 73160: Therapeutic Activities (1:1) active Opal Wilder, PT [address], [place], [address], [facility] 05/21/2025 08:30:09 5 31814 Therapeutic Exercise (1:1) active Opal Wilder, PT [address], [place], [address], [facility] 05/21/2025 08:30:09 5 32909: Therapeutic Activities (1:1) completed Opal Wilder, PT [address], [place], [address], [facility] 05/20/2025 12:09:23 5 76171 Therapeutic Exercise (1:1) completed Opal Wilder, PT [address], [place], [address], [facility] 05/20/2025 09:43:14 5 48510: Therapeutic Activities (1:1) completed Magnus Hernandez, SECTION SUPERVISOR [address], [place], [address], [facility] 05/15/2025 12:49:00 5 95090 Therapeutic Exercise (1:1) completed Magnus Hernandez SECTION SUPERVISOR [address], [place], [address], [facility] 05/15/2025 11:24:48 5 64358 Therapeutic Exercise (1:1) completed Opal Wilder, PT [address], [place], [address], [facility] 05/13/2025 09:34:46 5 94984 Therapeutic Exercise (1:1) completed Agudelo Mary, SECTION SUPERVISOR [address], [place], [address], [facility] 05/07/2025 16:47:29 5 26347 Therapeutic Exercise (1:1) completed Agudelo Mary, SECTION SUPERVISOR [address], [place], [address], [facility] 05/06/2025 12:44:09 5 23307 Therapeutic Exercise (1:1) completed Opal Meño, PT [address], [place], [address], [facility] 05/03/2025 09:33:55 5 34779 Therapeutic Exercise (1:1) completed Opal Meño, PT [address], [place], [address], [facility] 05/01/2025 12:45:58 5 32189 Therapeutic Exercise (1:1) completed Opal Meño, PT [address], [place], [address], [facility] 04/25/2025 08:18:44 5 23582: Low complexity PT Eval completed Opal Meño, PT [address], [place], [address], [facility] 04/25/2025 08:19:14 5 06963 Therapeutic Exercise (1:1) completed Opal Meño, PT [address], [place], [address], [facility] 01/18/2025 12:24:50 5 66450: Low complexity PT Eval completed Opal [place], PT [address], [place], [address], [facility] 01/18/2025 12:24:51 5 JZHip Inj completed Noam Yu PA-C [address], [place], [address], [facility] 11/30/2024 13:54:03 5 Knee Kenalog 40 1cc Injection, Bilateral completed Yadiel Bundy PA-C [address], [place], [address], [facility] 07/31/2024 10:29:38 5 JZHip Inj completed Yadiel Bundy PA-C [address], [place], [address], [facility] 07/31/2024 10:29:42 4 Knee Kenalog 40 1cc Injection, Bilateral completed Yadiel Bundy PA-C [address] [facility], [place], [address], [facility] 04/16/2024 14:05:28 4 Hip Kenalog 2cc Injection, L/R completed Yadiel Bundy PA-C [address] [facility], [place], [address], [facility] 03/12/2024 15:18:03 Imaging Results None recorded. Procedure Notes None recorded. Medical Equipment None Reported. Allergies Allergen ID Allergen Name Allergen Category Reaction Reaction Severity Criticality Documentation Date Start Date Code Code System Note Provider Name and Address Organization Details Recorded Time 406884 No known allergy (situatio n) Not available Not available Not available Not available 04/16/2024 13596 6003 [facility]ED [facility] 4 10:24:27 No known drug allergies Medications [...] Social History Question Answer Notes LastModified by Celtroat ion Details LastModified Time Tobacco Smoking Status Never Smoker Camelia mims [place] [facility] 04/16/2024 10:24:36 When Did You Quit Smoking? 16+yearssince lastcigarette Information not available 04/16/2024 What Is Your Relationship Status? Information not available 04/16/2024 How Many Years Have You Smoked Tobacco? 0 Information not available 04/16/2024 Sex: Unknown Functional Status Question Answer Note LastModified by ContaAzuliz[employer] ion Details LastModified Time How many times [...] Disease N Heart Trouble N Heart Attack (IN) N Gastrointestinal Disease N Cholesterol N Diabetes [...] ICD10 Code Diagnosis IMO Codes Diagnosis Note [id number] Opal Wilder, PT MICHELA [facility] on PT [address] [place] [address] 04/25/2025 11:22:17 04/25/2025 12:03:15 Surgical follow-up [id number] Z47.1 Z96.652 [id number] Health Concerns Section Related Observation LastModified by Organization Detai ls LastModified Time None Recorded Concern Status LastModified by Organization Details LastModified Time None Recorded Payers Encounter Date Sequence Insurance Name Policy Number Policy Almazan Covered Member ID Almazan Member ID Guarantor Name 04/25/2025 1 [employer] - MED[employer]ARE ADVANTAGE PLAN (MEDICARE REPLACEMENT HMO) [id number] Poncho Brice [id number] Poncho Brice Notes Date Note Type Note Provider Name and Address Organization Details Recorded Time 04/25/2025 text/html Patient is a 80 year old male, with chronic history of (L) knee pain and OA. Presents s/p (L) TKA, reporting moderate pain and swelling in knee. Arrives today ambulating with rolling walker, demonstrating antalgic gait mechanics. Received home care PT.Current vocational status:retired.Sign ificant PMH:HTNFunctional limitations:restric petra knee ROM, difficulty ambulating community distances, and sleeping through night.Patient goal:improve mobility with decreased pain. Opal Wilder, PT [address], [place], [address], [facility] 04/29/2025 10:24:40 04/29/2025 text/html ROS as noted in the HPI I am seeing the patient today under the supervision of who was available but who did not see the patient. HISTORY OF PRESENT ILLNESS The patient presents today for a follow-up, now two weeks status post Left total knee arthroplasty. Happy with the results. No significant complaints of pain. Doing well with P.T. he continues with outpatient physical therapy. Utilizing Dilaudid as well as Tylenol as needed for pain relief. He is on aspirin for DVT prophylaxis. Continues icing elevating. Utilizing a walker as needed for ambulatory support. ROM with therapy is 7-97 degrees. PAST MEDICAL/SURGICAL HISTORY Reviewed today, otherwise unchanged per intake sheet. REVIEW OF SYSTEMS Systemic: No fever and no chills. Cardiovascular: No chest pain or discomfort. Pulmonary: No dyspnea. PHYSICAL FINDINGS General Appearance: Well developed. In no acute distress. Musculoskeletal System: Lower Leg: General/bilateral: Calves of both lower legs were not tender on palpation. Neurological: Oriented to time, place, and person. Gait And Stance: An operative sided antalgic gait was observed with assistive device. Psychiatric: Mood was appropriate to the affect. ROM is as above degrees. Moderate effusion noted Stable to varus/valgus stress. Extensor mechanism is intact. Normal sensation bilateral lower extremities Contralateral side shows no warmth, erythema, soft tissue swelling or effusion. TESTS X-rays ordered, obtained and reviewed at [facility] today, three views, reveals maintained alignment of the prosthetic components, no fractures or dislocations, excellent interface, patella tracking centrally. ASSESSMENT Progressing nicely two weeks status post Left total knee arthroplasty. PLAN The patient is progressing nicely and will continue total knee precautions. Continue to work on range of motion and strengthening exercises. Follow-up in four weeks for re-evaluation, sooner if there is any complications. Yadiel Bundy PA-C [address], [place], [address], [facility] 04/29/2025 12:18:00
--- OUTSIDE RECORDS SUMMARY | 2025-05-21 09:36 | XMS_ITS | Continuity of Care Document ---
Author Organization [place] - [facility] Address [address] [place] [address] Care Team Providers Care Fence Laborer Name Role Phone DAKSHA LITTLE Primary Care Provider Assessment Encounter Date Assessment Date Assessment LastModified by Organization Details LastModified Time 05/15/2025 05/15/2025 Assessment: Challenged with quad sets into extension but completed with frequent breaks. Good tolerance to addition of standing hip strengthening. Plan: Continue PT @ 2x/wk for 8 weeks to decrease pain, increase ROM, optimize mechanics for functional mobility with gait and stairs, and facilitate independence with functional ADL's. [email or web address] Not available 05/15/2025 12:44:57 Plan of Treatment Reminders Order Date Submit Date Provider Last Modified By Organization Details Last Modified Time Details Appointments PT FOLLOW -UP 11:30AM Opal Wilder, PT Not available Not available Not available PT FOLLOW -UP 11:30AM Magnus Kenf, PHLEBOTOMY DIRECTOR Not available Not available Not available POST OP 10 02:00PM Josue Jeter MD Not available Not available Not available PT FOLLOW -UP 11:30AM Agudelo Mary, PHLEBOTOMY DIRECTOR Not available Not available Not available PT FOLLOW -UP 11:30AM Opalgustavo Wilder, PT Not available Not available Not available PT FOLLOW -UP 025 12:00PM Agudelo Mary, PHLEBOTOMY DIRECTOR Not available Not available Not available PT FOLLOW -UP 025 12:00PM Agudelo Mary, PHLEBOTOMY DIRECTOR Not available Not available Not available PT FOLLOW -UP 11:30AM Opal Wilder, PT Not available Not available Not available PT FOLLOW -UP 11:30AM Opal Wilder, PT Not available Not available Not available PT FOLLOW -UP 11:30AM Magnus Hernandez, PHLEBOTOMY DIRECTOR Not available Not available Not available Lab None record ed. Referral None record ed. Procedures None record ed. Surgeries None record ed. Imaging None record ed. Medication Orders None record ed. Patient Targets Encounter Date Encounter Id Patient Goals Patient Target Last Modified By Organization Details Last Modified Time 05/15/2025 [id number] STGs 3 weeks: 1. Improve (L) knee [...] to stand transfer without use of UEs. [email or web address] Not available 05/15/2025 11:24:48 Patient InstructionsNo instructions recorded. Reason for Referral None Reported. Results Created Date Observation Date Name Description Value Unit Range Abnormal Flag Note LastModifiedBy Organization Detail LastModifiedTime 04/15/2004/15/2025 XR, knee, 4 or more view No observ ation record ed. [facility] [address] [place], [address], 04/18/2025 10:21:01 04/29/20 25 04/29/2025 XR, knee, 3 view [email or web address]:/ [email or web address] ?Encry pted=s hAaTro YD8dLq bEUv6g %2BXZw aYqtaq 0bqfl% 2Fg9IQ a4ajBk vP9nXo QUaueC m3YtLR FvZlgJ JJ8mAn HZtai3 5u1668 AC0KlY nqDWKu iKiQtr MwF INTERFACE [facility] [address], [address], 04/29/2025 11:20:19 11/03/20 25 04/29/2025 XR, knee, 3 view [email or web address]:/ [email or web address] ?Encry pted=s hAaTro YD8dLq bEUv6g %2BXZw aYqtaq 0bqfl% 2Fg9IQ a4ajBk vP9nXo QUaueC m3YtLR FvZlgJ JJ8mAn HZtai3 7l9889 AC0KlY nqDWKu iKiQtr MwF INTERFACE [facility] [address], [place], [address], 04/29/2025 11:20:21 Result Notes None recorded. Problems Name Problem SNOMED Code Status Onset Date Resolution Date Notes Provider Name and Address Organization Details Recorded Time Osteoarthr itis of right knee joint 1936875696708 00 Active 2024 Josue Jeter MD [address], [place], [address] , [facility] 5 15:42:09 Osteoarthr itis of left knee joint 3655445031003 09 Active 2024 Josue Jeter MD [address], [place], [address] , [facility] 5 15:42:10 Problem Notes None recorded. Procedures Surgical History Date Name Laterality Status Provider Name and Address Organization Details Recorded Time 5 14895: Therapeutic Activities (1:1) active Opal Wilder, PT [address] [facility], [place], [address], [facility] 05/21/2025 08:30:09 5 46254 Therapeutic Exercise (1:1) active Opal Wilder, PT [address], [place], [address], [facility] 05/21/2025 08:30:09 5 55638: Therapeutic Activities (1:1) completed Opal Wilder, PT [address], [place], [address], [facility] 05/20/2025 12:09:23 5 60470 Therapeutic Exercise (1:1) completed Opal Wilder, PT [address], [place], [address], [facility] 05/20/2025 09:43:14 5 03091: Therapeutic Activities (1:1) completed Magnus Hernandez, PHLEBOTOMY DIRECTOR [address], [place], [address], [facility] 05/15/2025 12:49:00 5 00105 Therapeutic Exercise (1:1) completed Magnus Hernandez, PHLEBOTOMY DIRECTOR [address], [place], [address], [facility] 05/15/2025 11:24:48 5 84361 Therapeutic Exercise (1:1) completed Opal Wilder, PT [address], [place], [address], [facility] 05/13/2025 09:34:46 5 66955 Therapeutic Exercise (1:1) completed Magnus Hernandez, PHLEBOTOMY DIRECTOR [address], [place], [address], [facility] 05/07/2025 16:47:29 5 39940 Therapeutic Exercise (1:1) completed Magnus Hernandez, PHLEBOTOMY DIRECTOR [address], [place], [address], [facility] 05/06/2025 12:44:09 5 22845 Therapeutic Exercise (1:1) completed Opal Wilder, PT [address], [place], [address], [facility] 05/03/2025 09:33:55 5 56460 Therapeutic Exercise (1:1) completed Opal Wilder, PT [address], [place], [address], [facility] 05/01/2025 12:45:58 5 60578 Therapeutic Exercise (1:1) completed Opal Meño, PT [address], [place], [address], [facility] 04/25/2025 08:18:44 5 44379: Low complexity PT Eval completed Opal Meño, PT [address], [place], [address], [facility] 04/25/2025 08:19:14 5 76359 Therapeutic Exercise (1:1) completed Opal [place], PT [address], [place], [address], [facility] 01/18/2025 12:24:50 5 33282: Low complexity PT Eval completed Opal Meño, PT [address], [place], [address], [facility] 01/18/2025 12:24:51 5 JZHip Inj completed Noam Yu PA-C [address] [facility], [place], [address], [facility] 11/30/2024 13:54:03 5 Knee Kenalog 40 1cc Injection, Bilateral completed Yadiel Bundy PA-C [address], [place], [address], [facility] 07/31/2024 10:29:38 5 JZHip Inj completed Yadiel Bundy PA-C [address], [place], [address], [facility] 07/31/2024 10:29:42 4 Knee Kenalog 40 1cc Injection, Bilateral completed Yadiel Bundy PA-C [address], [place], [address], [facility] 04/16/2024 14:05:28 Hip Kenalog 2cc Injection, L/R completed Yadiel Bundy PA-C [address] [facility] [address], [place], [address], [facility] 03/12/2024 15:18:03 Imaging Results None recorded. Procedure Notes None recorded. Medical Equipment None Reported. Allergies Allergen ID Allergen Name Allergen Category Reaction Reaction Severity Criticality Documentation Date Start Date Code Code System Note Provider Name and Address Organization Details Recorded Time 947224 No known allergy (situatio n) Not available Not available Not available Not available 04/16/2024 63802 6003 SNOMED Camelia mims [facility] 10:24:27 No [...] Tobacco Smoking Status Never Smoker Camelia mims [facility] 04/16/2024 10:24:36 When Did You [...] Disease N Heart Trouble N Heart Attack (CT) N Gastrointestinal Disease N Cholesterol N Diabetes [...] ICD10 Code Diagnosis IMO Codes Diagnosis Note [id number] [facility] [address] [place] [address] 04/25/2025 11:22:17 04/25/2025 12:03:15 Surgical follow-up [id number] Z47.1 Z96.652 [id number] JENNI Hicks 2nd floor [address] [facility] [place] [address] 04/29/2025 10:34:20 05/13/2025 13:40:35 History of left total knee replacement [id number] 357011 Z96.652 [id number] Opal Wilder, PT [facility] [address] [place] [address] 05/01/2025 11:52:05 05/02/2025 07:41:43 Surgical follow-up [id number] Z47.1 Z96.652 [id number] Opal Wilder, PT [facility] [address] [place] [address] 05/03/2025 08:54:04 05/03/2025 09:42:21 Surgical follow-up [id number] Z47.1 Z96.652 [id number] Magnus Hernandez, PHLEBOTOMY DIRECTOR [facility] [address] [place] [address] 05/06/2025 11:22:32 05/06/2025 12:56:18 Surgical follow-up [id number] Z47.1 Z96.652 [id number] Magnus Hernandez, PHLEBOTOMY DIRECTOR [facility] [address] [place] [address] 05/08/2025 11:20:53 05/08/2025 13:11:03 Surgical follow-up [id number] Z47.1 Z96.652 [id number] Opal Wilder, PT [facility] [address] [place] [address] 05/13/2025 11:22:54 05/13/2025 13:23:28 Surgical follow-up [id number] Z47.1 Z96.652 [id number] Magnus Hernandez, PHLEBOTOMY DIRECTOR [facility] [address] [place] [address] 05/15/2025 11:21:48 05/15/2025 13:41:14 Surgical follow-up [id number] Z47.1 Z96.652 [id number] Health Concerns Section Related Observation LastModified by Organization Detai ls LastModified Time None Recorded Concern Status LastModified by Organization Details LastModified Time None Recorded Payers Encounter Date Sequence Insurance Name Policy Number Policy Almazan Covered Member ID Almazan Member ID Guarantor Name 05/15/2025 1 [employer] - MEDICARE ADVANTAGE PLAN (MEDICARE REPLACEMENT HMO) [id number] Poncho Brice [id number] Poncho Brice Notes Date Note Type Note Provider Name and Address Organization Details Recorded Time 05/15/2025 text/html Patient reports L knee is feeling better then his right today. He feels he is making good progress and walking has improved. Magnus Hernandez, PHLEBOTOMY DIRECTOR [address] [facility] [address], [place], [address], [facility] 05/15/2025 12:49:15
--- OUTSIDE RECORDS SUMMARY | 2025-05-21 09:36 | XMS_ITS | Clinical Summary ---
Author Organization [facility] Address [address] [place] [id number] Phone Care Team Providers Care Solvent Plant Treater Name Role Phone Brandon Kim MD Primary Care Provider Allergies No known active allergies Medications acetaminophen (TYLENOL) 325 mg tablet Take 650 mg by mouth every 6 (six) hours as needed for pain (specific location in comments) (L knee). Active aspirin 325 MG tablet Take 325 mg by mouth 2 (two) times a day (once in the morning and once in the afternoon). Active docusate sodium (COLACE) 100 MG capsule Take 100 mg by mouth 2 (two) times a day. Active HYDROmorphone (DILAUDID) 2 MG tablet Take 1-2 tablets by mouth every 4 (four) hours as needed for pain (specific location in comments) (severe pain L knee). Active pantoprazole (PROTONIX) 40 MG tablet Take 40 mg by mouth daily. Active polyethylene glycol (MIRALAX) 17 gram/dose powder Take 17 g by mouth daily as needed for mild constipation or moderate constipation. Active senna (SENOKOT) 8.6 mg tablet Take 1 tablet by mouth daily. bedtime Active traMADoL (ULTRAM) 50 mg tablet Take 1-2 tablets by mouth every 6 (six) hours as needed for pain (specific location in comments) (mild L knee pain). Not to exceed 400mg per day Active allopurinol (ZYLOPRIM) 100 MG tablet Take 100 mg by mouth daily. Active carvedilol (COREG) 12.5 MG tablet Take 12.5 mg by mouth 2 (two) times a day with meals. Active losartan (COZAAR) 50 MG tablet Take 50 mg by mouth daily. Active Active Problems No known active problems Encounters Date Type Department Care Team Description 04/24/2025 2:30 PM EDT [facility] Visit [facility] [address] [place] [address] Chilango Rao, PT PT OASIS DISCHARGE VISIT 04/22/2025 10:30 AM EDT [facility] [address] [place] [address] Shreya Calle, TRIMMER MACHINE OPERATOR TRIMMER MACHINE OPERATOR HOME VISIT 04/20/2025 11:00 AM EDT [facility] [address] [place] [address] Vandana Salmeron, TRIMMER MACHINE OPERATOR TRIMMER MACHINE OPERATOR HOME VISIT 04/19/2025 2:30 PM EDT [facility] [address] [place] [address] Chilango Rao, PT PT HOME VISIT 04/19/2025 Episode Documentatio n Update [facility] [address] [place] [address] 04/18/2025 11:30 AM EDT [facility] [address] [place] [address] Chilango Rao, PT PT OASIS START OF CARE (SOC) 04/18/2025 Plan of Care Documentation [facility] [address] [place] [address] 04/16/2025 5:00 PM EDT [facility] [address] [place] [address] Danae Perez, PT TELEPHONE ENCOUNTER 04/15/2025 Orders Only [facility] [address] [place] [address] Homehealth, Interface ProviderMD from Last 3 Months Immunizations Immunization Administration Dates Next Due Tdap 11/30/2021 Social History Tobacco Use Types Packs/Day Years Used Date Smoking Tobacco: Never Alcohol Use Standard Drinks/Week Comments Yes 0 (1 standard drink = 0.6 oz pur e alcohol) socially Home Health Assessment: Transportation Answer Date Recorded Lack of Transportation (Medical) No 04/24/2025 Lack of Transportation (Non-Medical) No 04/24/2025 Patient Unable or Declines to Respond No 04/24/2025 Education Answer Date Recorded Are you interested in more education? Not on merary e 10/23/2022 Are you concerned about learning? Not on file 10/23/2022 No 10/23/2022 No 10/23/2022 Digital Access Answer Date Recorded No 11/21/2022 No 11/21/2022 No 11/21/2022 Reliable internet access at home? Not on file 11/21/2022 Device with a working camera? Not on file Sex and Gender Information Value Date Recorded Sex Assigned at Male 11/30/2021 10:46 AM EDT Legal Sex Male 10:29 AM EDT Gender Identity Male 11/30/2021 10:46 AM EDT Sexual Orientation Straight 11/30/2021 10 :46 AM EDT Last Filed Vital Signs Vital Sign Reading Time Taken Comments Blood Pressure 136/88 04/24/2025 2:45 PM EDT Pulse 70 04/24/2025 2:45 PM EDT Temperature 36 C (96.8 F) 04/24/2025 2:45 PM EDT Respiratory Rate 12 04/18/2025 12:12 PM EDT Oxygen Saturation 97% 04/24/2025 2:45 PM EDT Inhaled Oxygen Concentration - - Weight 90.7 kg (200 lb) 11/30/2021 10:44 AM EDT Height 182.9 cm (6') 11/30/2021 10:44 AM EDT Body Mass Index 27.12 11/30/2021 10:44 AM EDT Plan of Treatment Health Maintenance Due Date Last Done Comments CREATININE LEVEL 1947 LIPID PANEL 1947 POTASSIUM LEVEL 1947 DEPRESSION SCREENING 1959 HEPATITIS C SCREENING 1965 SMOKING STATUS SCREENING (On ce After 26 Yrs) 1973 PNEUMOCOCCAL VACCINES (50+ y ears) (1 of 1 - PCV) 1997 ZOSTER VACCINES (1 of 2) 1997 RSV VACCINE (1 - 1-dose 75+ series) 2022 INFLUENZA VACCINE (#1) 2025 COVID-19 VACCINE (1 - 2024-2 6 season) 2025 Adult Td,Tdap Booster 12/01/2031 11/30/2021 HEPATITIS A VACCINES Aged Out No long er eligible based on patient's age to complete this topic HIB VACCINES Aged Out No longer eligi ble based on patient's age to complete this topic MENINGOCOCCAL VACCINES (ACWY) Aged Out No longer eligible based on patient's age to complete this topic MENINGOCOCCAL VACCINES (B) Aged Out N o longer eligible based on patient's age to complete this topic Medical Devices Not on file Insurance [employer] HMO REPLACEMENT [employer] H[employer] REPLACEMENT [employer] H[employer] REPLACEMENT Care Teams Solvent Plant Treater Relationship Specialty Start Date End Date Brandon Kim MD [address] [place] [address] Dr LUCIO [address] [place] [phone] PCP - General Internal Medicine 11/30/21 Additional Source Comments The information contained in this document represents components of the legal health record. It is not the complete legal health record.[facility]
--- OUTSIDE RECORDS SUMMARY | 2025-05-21 09:36 | XMS_ITS | Continuity of Care Document ---
Author Organization [place] - [facility], [place] - [place] [facility] Address [address] [place] [address] Care Team Providers Care Furnace Checker Name Role Phone SIDNEY DAKSHA Primary Care Provider Assessment Encounter Date Assessment Date Assessment LastModified by Organization Details LastModified Time 05/13/2025 05/13/2025 Assessment: Continues to have difficulty [...] stairs, and facilitate independence with functional ADL's. [email or web address] Not available 05/14/2025 08:59:24 Plan of Treatment Reminders Order Date Submit Date Provider Last Modified By Organization Details Last Modified Time Details Appointments PT FOLLOW -UP 11:30AM Opal Wilder, PT Not available Not available Not available PT FOLLOW -UP 11:30AM Magnus Hernandez, MIDDLE SCHOOL ASSISTANT PRINCIPAL Not available Not available Not available POST OP 10 02:00PM Josue Jeter MD Not available Not available Not available PT FOLLOW -UP 11:30AM Magnus Hernandez, MIDDLE SCHOOL ASSISTANT PRINCIPAL Not available Not available Not available PT FOLLOW -UP 11:30AM Opal Wilder, PT Not available Not available Not available PT FOLLOW -UP 12:00PM Magnus Hernandez MIDDLE SCHOOL ASSISTANT PRINCIPAL Not available Not available Not available PT FOLLOW -UP 12:00PM Magnus Hernandez, MIDDLE SCHOOL ASSISTANT PRINCIPAL Not available Not available Not available PT FOLLOW -UP 025 11:30AM Opal Wilder, PT Not available Not available Not available PT FOLLOW -UP 025 11:30AM Opal Wilder, PT Not available Not available Not available PT FOLLOW -UP 025 11:30AM Magnus Hernandez, MIDDLE SCHOOL ASSISTANT PRINCIPAL Not available Not available Not available Lab None record ed. Referral None record ed. Procedures None record ed. Surgeries None record ed. Imaging None record ed. Medication Orders None record ed. Patient Targets Encounter Date Encounter Id Patient Goals Patient Target Last Modified By Organization Details Last Modified Time 05/13/2025 [id number] STGs 3 weeks: 1. Improve (L) knee [...] to stand transfer without use of UEs. [email or web address] Not available 05/13/2025 09:34:46 Patient InstructionsNo instructions recorded. Reason for Referral None Reported. Results Created Date Observation Date Name Description Value Unit Range Abnormal Flag Note LastModifiedBy Organization Detail LastModifiedTime 04/15/2004/15/2025 XR, knee, 4 or more view No observ ation record ed. [facility] [address] [place], [address], 04/18/2025 10:21:01 04/29/20 25 04/29/2025 XR, knee, 3 view [email or web address]:/ [email or web address] ?Encry pted=s hAaTro YD8dLq bEUv6g %2BXZw aYqtaq 0bqfl% 2Fg9IQ a4ajBk vP9nXo QUaueC m3YtLR FvZlgJ JJ8mAn HZtai3 [id number] AC0KlY nqDWKu iKiQtr MwF INTERFACE [facility] [address] [facility] [address], [place], [address], 04/29/2025 11:20:19 04/29/2004/29/2025 XR, knee, 3 view [email or web address] ?Encry pted=s hAaTro YD8dLq bEUv6g %2BXZw aYqtaq 0bqfl% 2Fg9IQ a4ajBk vP9nXo QUaueC m3YtLR FvZlgJ JJ8mAn HZtai3 [id number] AC0KlY nqDWKu iKiQtr MwF INTERFACE [facility] [email or web address], [place], [address], 04/29/2025 11:20:21 Result Notes None recorded. Problems Name Problem SNOMED Code Status Onset Date Resolution Date Notes Provider Name and Address Organization Details Recorded Time Osteoarthr itis of right knee joint 7307307131419 00 Active 2024 Josue Jeter MD [address], [place], [address] , [facility] 5 15:42:09 Osteoarthr itis of left knee joint 1023781460387 09 Active 2024 Josue Jeter MD [address], [place], [address] , [facility] 5 15:42:10 Problem Notes None recorded. Procedures Surgical History Date Name Laterality Status Provider Name and Address Organization Details Recorded Time 5 15489: Therapeutic Activities (1:1) active Opal Bridger, PT [address], [place], [address], [facility] 05/21/2025 08:30:09 5 71556 Therapeutic Exercise (1:1) active Oapl Bridger, PT [address], [place], [address], [facility] 05/21/2025 08:30:09 5 37978: Therapeutic Activities (1:1) completed Opal Meño, PT [address], [place], [address], [facility] 05/20/2025 12:09:23 5 49166 Therapeutic Exercise (1:1) completed Opal Bridger, PT [address], [place], [address], [facility] 05/20/2025 09:43:14 5 94340: Therapeutic Activities (1:1) completed Agudelo Mary, MIDDLE SCHOOL ASSISTANT PRINCIPAL [address], [place], [address], [facility] 05/15/2025 12:49:00 5 14208 Therapeutic Exercise (1:1) completed Magnus Pugaraf, MIDDLE SCHOOL ASSISTANT PRINCIPAL [address], [place], [address], [facility] 05/15/2025 11:24:48 5 15330 Therapeutic Exercise (1:1) completed Opal Meño, PT [address], [place], [address], [facility] 05/13/2025 09:34:46 5 39101 Therapeutic Exercise (1:1) completed Magnus Pugaraf, MIDDLE SCHOOL ASSISTANT PRINCIPAL [address], [place], [address], [facility] 05/07/2025 16:47:29 5 69523 Therapeutic Exercise (1:1) completed Agudelo Mary, MIDDLE SCHOOL ASSISTANT PRINCIPAL [address], [place], [address], [facility] 05/06/2025 12:44:09 5 80231 Therapeutic Exercise (1:1) completed Opal Bridger, PT [address], [place], [address], [facility] 05/03/2025 09:33:55 5 11413 Therapeutic Exercise (1:1) completed Opal Meño, PT [address], [place], [address], [facility] 05/01/2025 12:45:58 5 77678 Therapeutic Exercise (1:1) completed Opal Meño, PT [address], [place], [address], [facility] 04/25/2025 08:18:44 5 78648: Low complexity PT Eval completed Opal Meño, PT [address], [place], [address], [facility] 04/25/2025 08:19:14 5 96808 Therapeutic Exercise (1:1) completed Opal Bridger, PT [address], [place], [address], [facility] 01/18/2025 12:24:50 5 92596: Low complexity PT Eval completed Opal Meño, PT [address], [place], [address], [facility] 01/18/2025 12:24:51 5 JZHip Inj completed Noam Yu PA-C [address], [place], [address], [facility] 11/30/2024 13:54:03 5 Knee Kenalog 40 1cc Injection, Bilateral completed Yadiel Bundy PA-C [address], [place], [address], [facility] 07/31/2024 10:29:38 5 JZHip Inj completed Yadiel Bundy PA-C [address], [place], [address], [facility] 07/31/2024 10:29:42 4 Knee Kenalog 40 1cc Injection, Bilateral completed Yadiel Bundy PA-C [address], [place], [address], [facility] 04/16/2024 14:05:28 4 Hip Kenalog 2cc Injection, L/R completed Yadiel Bundy PA-C [address], [place], [address], [facility] 03/12/2024 15:18:03 Imaging Results None recorded. Procedure Notes None recorded. Medical Equipment None Reported. Allergies Allergen ID Allergen Name Allergen Category Reaction Reaction Severity Criticality Documentation Date Start Date Code Code System Note Provider Name and Address Organization Details Recorded Time 516709 No known allergy (situatio n) Not available Not available Not available Not available 04/16/2024 71296 6003 SNOMED Camelia mims [facility] 10:24:27 No known drug allergies Medications [...] Tobacco Smoking Status Never Smoker Camelia mims [facility] 04/16/2024 10:24:36 When Did You Quit [...] Disease N Heart Trouble N Heart Attack ([place]) N Gastrointestinal Disease N Cholesterol N Diabetes [...] ICD10 Code Diagnosis IMO Codes Diagnosis Note [id number] Opal Wilder, PT [facility] [address] [place] [address] 04/25/2025 11:22:17 04/25/2025 12:03:15 Surgical follow-up 441273653 Z47.1 Z96.652 74230625 [id number] JENNI Hicks 2nd floor [address] [place] [address] 04/29/2025 10:34:20 05/13/2025 13:40:35 History of left total knee replacement 1412888713 798238 Z96.652 90270309 6897891 Opal Wilder, PT [place] [facility] [address] [place] [address] 05/01/2025 11:52:05 05/02/2025 07:41:43 Surgical follow-up 604493510 Z47.1 Z96.652 75397062 [id number] Opal Wilder, PT [place] [facility] [place] [facility] [address] [facility] [place] [address] 05/03/2025 08:54:04 05/03/2025 09:42:21 Surgical follow-up 777752310 Z47.1 Z96.652 81208793 [id number] Magnus Kenf, MIDDLE SCHOOL ASSISTANT PRINCIPAL [place] [facility] [address] [facility] [place] [address] 05/06/2025 11:22:32 05/06/2025 12:56:18 Surgical follow-up 317757916 Z47.1 Z96.652 [id number] [id number] Magnus Kenf, MIDDLE SCHOOL ASSISTANT PRINCIPAL [place] [place] [facility] [address] [facility] [place] [address] 05/08/2025 11:20:53 05/08/2025 13:11:03 Surgical follow-up 345300632 Z47.1 Z96.652 68631288 [id number] Opal Wilder, PT [place] [facility] [place] [facility] [address] [facility] [place] [address] 05/13/2025 11:22:54 05/13/2025 13:23:28 Surgical follow-up [id number] Z47.1 Z96.652 [id number] Health Concerns Section Related Observation LastModified by Organization Detai ls LastModified Time None Recorded Concern Status LastModified by Organization Details LastModified Time None Recorded Payers Encounter Date Sequence Insurance Name Policy Number Policy Almazan Covered Member ID Almazan Member ID Guarantor Name 05/13/2025 1 [employer] MEDICARE ADVANTAGE PLAN (MEDICARE REPLACEMENT HMO) [id number] Poncho Brice [id number] Poncho Brice Notes Date Note Type Note Provider Name and Address Organization Details Recorded Time 05/13/2025 text/html Patient reports (B) knees feeling achy today, thinks it is due to the weather. Continues to work on extension at home. Opal Wilder, PT [address], [place], [address], [facility] [place] [facility] 05/14/2025 08:59:35
--- OUTSIDE RECORDS SUMMARY | 2025-05-21 09:36 | XMS_ITS | Continuity of Care Document ---
Author Organization [place] [facility], [facility] Address [address] [place] [address] Care Team Providers Care Tool Worker Name Role Phone DAKSHA LITTLE Primary Care Provider Assessment Encounter Date Assessment Date Assessment LastModified by Organization Details LastModified Time 05/08/2025 05/08/2025 Assessment: Slight increase with knee flexion and extension this session. Decreased tolerance to therax, max fatigue reported after SLR's Plan: Continue PT @ 2x/wk for 8 weeks to decrease pain, increase ROM, optimize mechanics for functional mobility with gait and stairs, and facilitate independence with functional ADL's. [email or web address] Not available 05/08/2025 12:14:13 Plan of Treatment Reminders Order Date Submit Date Provider Last Modified By Organization Details Last Modified Time Details Appointments PT FOLLOW -UP 11:30AM Opal Wilder, PT Not available Not available Not available PT FOLLOW -UP 11:30AM Magnus Kenf, HEAD TRANSFER CLERK Not available Not available Not available POST OP 10 025 02:00PM Josue Jeter MD Not available Not available Not available PT FOLLOW -UP 025 11:30AM Agudelo Mary, HEAD TRANSFER CLERK Not available Not available Not available PT FOLLOW -UP 025 11:30AM Opal Wilder, PT Not available Not available Not available PT FOLLOW -UP 025 12:00PM Agudelo Mary, HEAD TRANSFER CLERK Not available Not available Not available PT FOLLOW -UP 025 12:00PM Agudelo Mary, HEAD TRANSFER CLERK Not available Not available Not available PT FOLLOW -UP 11:30AM Opal Wilder, PT Not available Not available Not available PT FOLLOW -UP 025 11:30AM Opal Wilder, PT Not available Not available Not available PT FOLLOW -UP 025 11:30AM Magnus Hernandez, HEAD TRANSFER CLERK Not available Not available Not available Lab None record ed. Referral None record ed. Procedures None record ed. Surgeries None record ed. Imaging None record ed. Medication Orders None record ed. Patient Targets Encounter Date Encounter Id Patient Goals Patient Target Last Modified By Organization Details Last Modified Time 05/08/2025 [id number] STGs 3 weeks: 1. Improve (L) knee [...] to stand transfer without use of UEs. [email or web address] Not available 05/07/2025 16:47:29 Patient InstructionsNo instructions recorded. Reason for Referral None Reported. Results Created Date Observation Date Name Description Value Unit Range Abnormal Flag Note LastModifiedBy Organization Detail LastModifiedTime 04/15/2004/15/2025 XR, knee, 4 or more view No observ ation record ed. [facility] [address] [place], [address], 04/18/2025 10:21:01 04/29/20 25 04/29/2025 XR, knee, 3 view [email or web address] ?Encry pted=s hAaTro YD8dLq bEUv6g %2BXZw aYqtaq 0bqfl% 2Fg9IQ a4ajBk vP9nXo QUaueC m3YtLR FvZlgJ JJ8mAn HZtai3 [id number] AC0KlY nqDWKu iKiQtr MwF INTERFACE [address] [address], [place], [address], 04/29/2025 11:20:19 04/29/20 25 04/29/2025 XR, knee, 3 view [email or web address]:/ [email or web address] ?Encry pted=s hAaTro YD8dLq bEUv6g %2BXZw aYqtaq 0bqfl% 2Fg9IQ a4ajBk vP9nXo QUaueC m3YtLR FvZlgJ JJ8mAn HZtai3 5a1843 AC0KlY nqDWKu iKiQtr MwF INTERFACE [facility] [address], [place], [address], 04/29/2025 11:20:21 Result Notes None recorded. Problems Name Problem SNOMED Code Status Onset Date Resolution Date Notes Provider Name and Address Organization Details Recorded Time Osteoarthr itis of right knee joint 7818930588199 00 Active 2024 Josue Jeter MD [address], [place], [address] , [facility] 5 15:42:09 Osteoarthr itis of left knee joint 5238713618734 09 Active 2024 Josue Jeter MD [address], [place], [address] , [facility] 5 15:42:10 Problem Notes None recorded. Procedures Surgical History Date Name Laterality Status Provider Name and Address Organization Details Recorded Time 5 29905: Therapeutic Activities (1:1) active Opal Wilder, PT [address] [facility], [place], [address], [facility] 05/21/2025 08:30:09 5 17889 Therapeutic Exercise (1:1) active Opal Wilder, PT [address], [place], [address], [facility] 05/21/2025 08:30:09 5 38202: Therapeutic Activities (1:1) completed Opal Wilder, PT [address], [place], [address], [facility] 05/20/2025 12:09:23 5 49877 Therapeutic Exercise (1:1) completed Opal Wilder, PT [address], [place], [address], [facility] 05/20/2025 09:43:14 5 77771: Therapeutic Activities (1:1) completed Magnus Hernandez, HEAD TRANSFER CLERK [address], [place], [address], [facility] 05/15/2025 12:49:00 5 76910 Therapeutic Exercise (1:1) completed Magnus Hernandez, HEAD TRANSFER CLERK [address] [facility], [place], [address], [facility] 05/15/2025 11:24:48 5 81359 Therapeutic Exercise (1:1) completed Opal Wilder, PT [address], [place], [address], [facility] 05/13/2025 09:34:46 5 98292 Therapeutic Exercise (1:1) completed Magnus Hernandez, HEAD TRANSFER CLERK [address], [place], [address], [facility] 05/07/2025 16:47:29 5 98553 Therapeutic Exercise (1:1) completed Magnus Hernandez, HEAD TRANSFER CLERK [address], [place], [address], [facility] 05/06/2025 12:44:09 5 99580 Therapeutic Exercise (1:1) completed Opal Wilder, PT [address], [place], [address], [facility] 05/03/2025 09:33:55 5 99880 Therapeutic Exercise (1:1) completed Opal Wilder, PT [address], [place], [address], [facility] 05/01/2025 12:45:58 5 13178 Therapeutic Exercise (1:1) completed Opal Meño, PT [address], [place], [address], [facility] 04/25/2025 08:18:44 5 47795: Low complexity PT Eval completed Opal [place], PT [address], [place], [address], [facility] 04/25/2025 08:19:14 5 93440 Therapeutic Exercise (1:1) completed Opal Meño, PT [address] [facility], [place], [address], [facility] 01/18/2025 12:24:50 5 97642: Low complexity PT Eval completed Opal Meño, PT [address] [facility], [place], [address], [facility] 01/18/2025 12:24:51 5 JZHip Inj completed Noam Yu PA-C [address] [facility], [place], [address], [facility] 11/30/2024 13:54:03 5 Knee Kenalog 40 1cc Injection, Bilateral completed Yadiel Bundy PA-C [address] [facility], [place], [address], [facility] 07/31/2024 10:29:38 5 JZHip Inj completed Yadiel Bundy PA-C [address] [facility], [place], [address], [facility] 07/31/2024 10:29:42 4 Knee Kenalog 40 1cc Injection, Bilateral completed Yadiel Bundy PA-C [address] [facility], [place], [address], [facility] 04/16/2024 14:05:28 4 Hip Kenalog 2cc Injection, L/R completed Yadiel Bundy PA-C [address] [facility] [address], [place], [address], [facility] 03/12/2024 15:18:03 Imaging Results None recorded. Procedure Notes None recorded. Medical Equipment None Reported. Allergies Allergen ID Allergen Name Allergen Category Reaction Reaction Severity Criticality Documentation Date Start Date Code Code System Note Provider Name and Address Organization Details Recorded Time 977321 No known allergy (situatio n) Not available Not available Not available Not available 04/16/2024 87616 6003 SNOMED Camelia mims [facility] 10:24:27 No known drug allergies Medications [...] Tobacco Smoking Status Never Smoker Camelia mims [facility] 04/16/2024 10:24:36 When Did You Quit [...] Disease N Heart Trouble N Heart Attack ([place]) N Gastrointestinal Disease N Cholesterol N Diabetes [...] ICD10 Code Diagnosis IMO Codes Diagnosis Note [id number] Opal Wilder, PT [facility] [address] [place] [address] 04/25/2025 11:22:17 04/25/2025 12:03:15 Surgical follow-up [id number] Z47.1 Z96.652 04271852 [id number] JENNI Hicks 2nd floor [address] [facility] [place] [address] 04/29/2025 10:34:20 05/13/2025 13:40:35 History of left total knee replacement 1732253584 907658 Z96.652 70622279 [id number] Opal Wilder, PT [place] [address] [place] [address] 05/01/2025 11:52:05 05/02/2025 07:41:43 Surgical follow-up 730197798 Z47.1 Z96.652 [id number] Opal Wilder, PT [place] [address] [facility] [place] [address] 05/03/2025 08:54:04 05/03/2025 09:42:21 Surgical follow-up 770013068 Z47.1 Z96.652 83373956 [id number] Magnus Hernandez, HEAD TRANSFER CLERK [place] [address] [facility] [place] [address] 05/06/2025 11:22:32 05/06/2025 12:56:18 Surgical follow-up 880832010 Z47.1 Z96.652 [id number] Magnus Hernandez, HEAD TRANSFER CLERK [place] [address] [facility] [place] [address] 05/08/2025 11:20:53 05/08/2025 13:11:03 Surgical follow-up [id number] Z47.1 Z96.652 [id number] Health Concerns Section Related Observation LastModified by Organization Detai ls LastModified Time None Recorded Concern Status LastModified by Organization Details LastModified Time None Recorded Payers Encounter Date Sequence Insurance Name Policy Number Policy Almazan Covered Member ID Almazan Member ID Guarantor Name 05/08/2025 1 [employer] MEDICARE ADVANTAGE PLAN (MEDICARE REPLACEMENT HMO) [id number] Poncho rBice [id number] Poncho Brice Notes Date Note Type Note Provider Name and Address Organization Details Recorded Time 05/08/2025 text/html Patient reports feeling a bit achy and fatigued today. He was sore after last session but it was tolerable. Magnus Hernandez, HEAD TRANSFER CLERK [address], [place], [address], [facility] 05/08/2025 12:17:09
--- OUTSIDE RECORDS SUMMARY | 2025-05-21 09:36 | XMS_ITS | Continuity of Care Document ---
Author Organization [place] - [employer] [facility], [facility] 2[facility] Address [address] [place] [address] Care Team Providers Care Case Packer And Sealer Name Role Phone DAKSHA LITTLE Primary Care Provider [phone] Assessment No assessment recorded. Plan of Treatment Reminders Order Date Submit Date Provider Last Modified By Organization Details Last Modified Time Details Appointments PT FOLLOW -UP 11:30AM Opal [place], PT Not available Not available Not available PT FOLLOW -UP 11:30AM Agudelo Mary, BILLET CHECKER Not available Not available Not available POST OP 10 02:00PM Jouse Jeter MD Not available Not available Not available PT FOLLOW -UP 025 11:30AM Agudelo Mary, BILLET CHECKER Not available Not available Not available PT FOLLOW -UP 025 11:30AM Opal [place], PT Not available Not available Not available PT FOLLOW -UP 12:00PM Agudelo Mary, BILLET CHECKER Not available Not available Not available PT FOLLOW -UP 025 12:00PM Agudelo Mary, BILLET CHECKER Not available Not available Not available PT FOLLOW -UP 025 11:30AM Opal [place], PT Not available Not available Not available PT FOLLOW -UP 025 11:30AM Opal Meño, PT Not available Not available Not available PT FOLLOW -UP 025 11:30AM Agudelo Mary, BILLET CHECKER Not available Not available Not available Lab None record ed. Referral None record ed. Procedures None record ed. Surgeries None record ed. Imaging XR, knee, 3 view - rm 113. LT knee, 3v. 1ST POST OP LTKR 04/15 AB 025 025 [facility], [address], [facility] [address], [place], [address], 04/29/2025 11:20:18 Medication Orders None record ed. Patient TargetsNo targets recorded. Patient InstructionsNo instructions recorded. Reason for Referral None Reported. Results Created Date Observation Date Name Description Value Unit Range Abnormal Flag Note LastModifiedBy Organization Detail LastModifiedTime 04/15/20 25 04/15/2025 XR, knee, 4 or more view No observ ation record ed. [facility] [address] [place], [address], 04/18/2025 10:21:01 04/29/20 25 04/29/2025 XR, knee, 3 view [email or web address]:/ [email or web address] ?Encry pted=s hAaTro YD8dLq bEUv6g %2BXZw aYqtaq 0bqfl% 2Fg9IQ a4ajBk vP9nXo QUaueC m3YtLR FvZlgJ J8Chilmark HZtai3 3b5228 AC0KlY nqDWKu iKiQtr MwF INTERFACE [facility] [address] [facility] [address], [place], [address], 04/29/2025 11:20:19 04/29/20 25 04/29/2025 XR, knee, 3 view [email or web address]:/ [email or web address] ?Encry pted=s hAaTro YD8dLq bEUv6g %2BXZw aYqtaq 0bqfl% 2Fg9IQ a4ajBk vP9nXo QUaueC m3YtLR FvZlgJ J8mAn HZtai3 9p2191 AC0KlY nqDWKu iKiQtr MwF INTERFACE [facility] Office [address] [facility] [address], [place], [address], 04/29/2025 11:20:21 Result Notes Documentation Provider Name and Address Organization Details Recorded Time Xr, Knee, 3 View : [email or web address]? Encrypted=ezThGblRK0mPqdU Uv6g%9XIXugPaavh1krqh%2Fg 2XQr3zzFknP7bQfJIjxxKx3Nl DFBgJqoTKK0bKoVZxvh02n653 1BF7EeHddEBIysJpQtxCpS Not Available [facility] 04/29/2025 11:20: 20 Xr, Knee, 3 View : [email or web address] Encrypted=cjBwIqeVO6xPomJ Uv6g%1RNVmxCklnf3ipgs%2Fg 2JNf0otYxcO5tFqHVfvoQg1Af LFZkFltPFP5zYmBQday38j198 9OU2XlIqkKZDovJgAnlGpQ Not Available [facility] 04/29/2025 11:20: 21 Problems Name Problem SNOMED Code Status Onset Date Resolution Date Notes Provider Name and Address Organization Details Recorded Time Osteoarthr itis of right knee joint 8743978028117 00 Active 2024 Josue Jeter MD [address], [place], [address] , [facility] 5 15:42:09 Osteoarthr itis of left knee joint 0122867247227 09 Active 2024 Josue Jeter MD [address], [place], [address] , [facility] 5 15:42:10 Problem Notes None recorded. Procedures Surgical History Date Name Laterality Status Provider Name and Address Organization Details Recorded Time 5 86597: Therapeutic Activities (1:1) active Opal Wilder, PT [address], [place], [address], [facility] 05/21/2025 08:30:09 5 45538 Therapeutic Exercise (1:1) active Opal [place], PT [address], [place], [address], [facility] 05/21/2025 08:30:09 5 93687: Therapeutic Activities (1:1) completed Opal [place], PT [address], [place], [address], [facility] 05/20/2025 12:09:23 5 88254 Therapeutic Exercise (1:1) completed Opal [place], PT [address], [place], [address], [facility] 05/20/2025 09:43:14 5 19514: Therapeutic Activities (1:1) completed Agudelo Mary, BILLET CHECKER [address], [place], [address], [facility] 05/15/2025 12:49:00 5 27255 Therapeutic Exercise (1:1) completed Agudelo Mary, BILLET CHECKER [address], [place], [address], [facility] 05/15/2025 11:24:48 5 14087 Therapeutic Exercise (1:1) completed Opal Meño, PT [address], [place], [address], [facility] 05/13/2025 09:34:46 5 82684 Therapeutic Exercise (1:1) completed Agudelo Mary, BILLET CHECKER [address], [place], [address], [facility] 05/07/2025 16:47:29 5 28202 Therapeutic Exercise (1:1) completed Agudelo Mary, BILLET CHECKER [address], [place], [address], [facility] 05/06/2025 12:44:09 5 52664 Therapeutic Exercise (1:1) completed Opal [place], PT [address], [place], [address], [facility] 05/03/2025 09:33:55 5 21472 Therapeutic Exercise (1:1) completed Poal [place], PT [address], [place], [address], [facility] 05/01/2025 12:45:58 5 40627 Therapeutic Exercise (1:1) completed Opal [place], PT [address], [place], [address], [facility] 04/25/2025 08:18:44 5 06846: Low complexity PT Eval completed Opal [place], PT [address], [place], [address], [facility] 04/25/2025 08:19:14 5 34158 Therapeutic Exercise (1:1) completed Opal [place], PT [address], [place], [address], [facility] 01/18/2025 12:24:50 5 81551: Low complexity PT Eval completed Opal [place], PT [address], [place], [address], [facility] 01/18/2025 12:24:51 5 JZHip Inj completed Noam uY PA-C [address], [place], [address], [facility] 11/30/2024 13:54:03 5 Knee Kenalog 40 1cc Injection, Bilateral completed Yadiel Bundy PA-C [address], [place], [address], [facility] 07/31/2024 10:29:38 5 JZHip Inj completed Yadiel Bundy PA-C [address], [place], [address], [facility] 07/31/2024 10:29:42 4 Knee Kenalog 40 1cc Injection, Bilateral completed Yadiel Bundy PA-C [address], [place], [address], [facility] 04/16/2024 14:05:28 4 Hip Kenalog 2cc Injection, L/R completed Yadiel Bundy PA-C [address], [place], [address], [facility] 03/12/2024 15:18:03 Imaging Results None recorded. Procedure Notes None recorded. Medical Equipment None Reported. Allergies Allergen ID Allergen Name Allergen Category Reaction Reaction Severity Criticality Documentation Date Start Date Code Code System Note Provider Name and Address Organization Details Recorded Time 082356 No known allergy (situatio n) Not available Not available Not available Not available 04/16/2024 90021 6003 SNOMED Camelia mims, [facility] 4 10:24:27 No known drug allergies [...] Smoking Status Never Smoker Camelia mims [facility] [...] Trouble N Gastrointestinal Disease N Heart Attack (PR) N Cholesterol N Diabetes N Autoimmune disease [...] ICD10 Code Diagnosis IMO Codes Diagnosis Note [id number] Opal Wilder, PT [facility] on [address] [place] [address] 04/25/2025 11:22:17 04/25/2025 12:03:15 Surgical follow-up [id number] Z47.1 Z96.652 [id number] JENNI Hicks 2nd floor [address] [place] [address] 04/29/2025 10:34:20 05/13/2025 13:40:35 History of left total knee replacement [id number] 483611 Z96.652 [id number] Health Concerns Section Related Observation LastModified by Organization Detai ls LastModified Time None Recorded Concern Status LastModified by Organization Details LastModified Time None Recorded Payers Encounter Date Sequence Insurance Name Policy Number Policy Almazan Covered Member ID Almazan Member ID Guarantor Name 04/29/2025 1 [employer] - MEDICARE ADVANTAGE PLAN (MEDICARE REPLACEMENT HMO) [id number] 04 Poncho Brice [id number] Poncho Brice Notes Date Note Type Note Provider Name and Address Organization Details Recorded Time 04/29/2025 text/html ROS as noted in the [...] TESTS X-rays ordered, obtained and reviewed at [facility] today, three views, reveals maintained alignment of [...] is any complications. Yadiel Bundy PA-C [address] [facility] [address], [place], [address], [facility] 04/29/2025 12:18:00
--- OUTSIDE RECORDS SUMMARY | 2025-05-21 09:37 | XMS_ITS | Continuity of Care Document ---
Author Organization [place] [facility], MICHELA [facility] PT Address [address] [place] [address] Care Team Providers Care Wheat Inspector Name Role Phone DAKSHA LITTLE Primary Care Provider Assessment Encounter Date Assessment Date Assessment LastModified by Organization Details LastModified Time 05/03/2025 05/03/2025 Assessment: Continue to make slight gains with AAROM knee flexion despite increased pain levels. Slight decrease in knee extension due to posterior knee tightness. Plan: Continue PT @ 2x/wk for 8 weeks to decrease pain, increase ROM, optimize mechanics for functional mobility with gait and stairs, and facilitate independence with functional ADL's. [email or web address] Not available 05/03/2025 09:36:05 Plan of Treatment Reminders Order Date Submit Date Provider Last Modified By Organization Details Last Modified Time Details Appointments PT FOLLOW -UP 025 11:30AM Opal Wilder, PT Not available Not available Not available PT FOLLOW -UP 025 11:30AM Agudelo Mary, CONSTRUCTION OR LEAK GANG LABORER Not available Not available Not available POST OP 10 025 02:00PM Josue Jeter MD Not available Not available Not available PT FOLLOW -UP 025 11:30AM Agudelo Mary, CONSTRUCTION OR LEAK GANG LABORER Not available Not available Not available PT FOLLOW -UP 025 11:30AM Opal Meño, PT Not available Not available Not available PT FOLLOW -UP 025 12:00PM Agudelo Mary, CONSTRUCTION OR LEAK GANG LABORER Not available Not available Not available PT FOLLOW -UP 025 12:00PM Agudelo Mary, CONSTRUCTION OR LEAK GANG LABORER Not available Not available Not available PT FOLLOW -UP 025 11:30AM Opal Wilder, PT Not available Not available Not available PT FOLLOW -UP 025 11:30AM Opal Wilder, PT Not available Not available Not available PT FOLLOW -UP 025 11:30AM Magnus Hernandez, CONSTRUCTION OR LEAK GANG LABORER Not available Not available Not available Lab None record ed. Referral None record ed. Procedures None record ed. Surgeries None record ed. Imaging None record ed. Medication Orders None record ed. Patient Targets Encounter Date Encounter Id Patient Goals Patient Target Last Modified By Organization Details Last Modified Time 05/03/2025 [id number] STGs 3 weeks: 1. Improve (L) knee [...] transfer without use of UEs. Not available 05/02/2025 15:43:40 Patient InstructionsNo instructions recorded. Reason for Referral None Reported. Results Created Date Observation Date Name Description Value Unit Range Abnormal Flag Note LastModifiedBy Organization Detail LastModifiedTime 04/15/2004/15/2025 XR, knee, 4 or more view No observ ation record ed. [facility] [address] [place], [address], 04/18/2025 10:21:01 04/29/20 25 04/29/2025 XR, knee, 3 view [email or web address]:/ [email or web address] ?Encry pted=s hAaTro YD8dLq bEUv6g %2BXZw aYqtaq 0bqfl% 2Fg9IQ a4ajBk vP9nXo QUaueC m3YtLR FvZlgJ JJ8mAn HZtai3 0a3991 AC0KlY nqDWKu iKiQtr MwF INTERFACE [facility] [address] [facility] [address] [address], [place], [address], 04/29/2025 11:20:19 04/29/2004/29/2025 XR, knee, 3 view [email or web address]:/ [email or web address] ?Encry pted=s hAaTro YD8dLq bEUv6g %2BXZw aYqtaq 0bqfl% 2Fg9IQ a4ajBk vP9nXo QUaueC m3YtLR FvZlgJ JJ8mAn HZtai3 0o4763 AC0KlY nqDWKu iKiQtr MwF INTERFACE [facility] [address], [place], [address], 04/29/2025 11:20:21 Result Notes None recorded. Problems Name Problem SNOMED Code Status Onset Date Resolution Date Notes Provider Name and Address Organization Details Recorded Time Osteoarthr itis of right knee joint 0453982778577 00 Active 2024 Josue Jeter MD [address], [place], [address] , [facility] 5 15:42:09 Osteoarthr itis of left knee joint 8405454239122 09 Active 2024 Josue Jeter MD [address], [place], [address] , [facility] 5 15:42:10 Problem Notes None recorded. Procedures Surgical History Date Name Laterality Status Provider Name and Address Organization Details Recorded Time 5 79662: Therapeutic Activities (1:1) active Opal Wlider, PT [address] [facility], [place], [address], [facility] 05/21/2025 08:30:09 5 08043 Therapeutic Exercise (1:1) active Opal Wilder, PT [address], [place], [address], [facility] 05/21/2025 08:30:09 5 29829: Therapeutic Activities (1:1) completed Opal Wilder, PT [address], [place], [address], [facility] 05/20/2025 12:09:23 5 88407 Therapeutic Exercise (1:1) completed Opal Wilder, PT [address], [place], [address], [facility] 05/20/2025 09:43:14 5 35543: Therapeutic Activities (1:1) completed Magnus Kenf, CONSTRUCTION OR LEAK GANG LABORER [address], [place], [address], [facility] 05/15/2025 12:49:00 5 88739 Therapeutic Exercise (1:1) completed Magnus Hernandez, CONSTRUCTION OR LEAK GANG LABORER [address] [facility], [place], [address], [facility] 05/15/2025 11:24:48 5 19219 Therapeutic Exercise (1:1) completed Opal Wilder, PT [address], [place], [address], [facility] 05/13/2025 09:34:46 5 68984 Therapeutic Exercise (1:1) completed Magnus Hernandez, CONSTRUCTION OR LEAK GANG LABORER [address], [place], [address], [facility] 05/07/2025 16:47:29 5 27089 Therapeutic Exercise (1:1) completed Magnus Hernandez, CONSTRUCTION OR LEAK GANG LABORER [address], [place], [address], [facility] 05/06/2025 12:44:09 5 78482 Therapeutic Exercise (1:1) completed Opal Wilder, PT [address], [place], [address], [facility] 05/03/2025 09:33:55 5 44647 Therapeutic Exercise (1:1) completed Opal Wilder, PT [address], [place], [address], [facility] 05/01/2025 12:45:58 5 44749 Therapeutic Exercise (1:1) completed Opal Meño, PT [address], [place], [address], [facility] 04/25/2025 08:18:44 5 48196: Low complexity PT Eval completed Opal [place], PT [address], [place], [address], [facility] 04/25/2025 08:19:14 5 09149 Therapeutic Exercise (1:1) completed Opal [place], PT [address] [facility], [place], [address], [facility] 01/18/2025 12:24:50 5 42758: Low complexity PT Eval completed Opal [place], PT [address] [facility], [place], [address], [facility] 01/18/2025 12:24:51 5 JZHip Inj completed Noam Yu PA-C [address] [facility], [place], [address], [facility] 11/30/2024 13:54:03 5 Knee Kenalog 40 1cc Injection, Bilateral completed Yadiel Bundy PA-C [address] [facility], [place], [address], [facility] 07/31/2024 10:29:38 5 JZHip Inj completed Yadiel Bundy PA-C [address] [facility], [place], [address], [facility] 07/31/2024 10:29:42 4 Knee Kenalog 40 1cc Injection, Bilateral completed Yadiel Bundy PA-C [address] [facility], [place], [address], [facility] 04/16/2024 14:05:28 Hip Kenalog 2cc Injection, L/R completed Yadiel Bundy PA-C [address] [facility] [address], [place], [address], [facility] 03/12/2024 15:18:03 Imaging Results None recorded. Procedure Notes None recorded. Medical Equipment None Reported. Allergies Allergen ID Allergen Name Allergen Category Reaction Reaction Severity Criticality Documentation Date Start Date Code Code System Note Provider Name and Address Organization Details Recorded Time 224303 No known allergy (situatio n) Not available Not available Not available Not available 04/16/2024 50965 6003 [facility]ED [facility] 10:24:27 No known drug allergies [...] Smoking Status Never Smoker Camelia mims [facility] [...] Disease N Heart Trouble N Heart Attack (IA) N Gastrointestinal Disease N Cholesterol N Diabetes [...] ICD10 Code Diagnosis IMO Codes Diagnosis Note [id number] Opal Wilder, PT [facility] [address] [place] [address] 04/25/2025 11:22:17 04/25/2025 12:03:15 Surgical follow-up [id number] Z47.1 Z96.652 [id number] JENNI Hicks 2nd floor [address] [facility] [place] [address] 04/29/2025 10:34:20 05/13/2025 13:40:35 History of left total knee replacement 2491536323 076630 Z96.652 20867135 [id number] Opal Wilder, PT [facility] [address] [place] [address] 05/01/2025 11:52:05 05/02/2025 07:41:43 Surgical follow-up 639817038 Z47.1 Z96.652 [id number] [facility] [address] [place] [address] 05/03/2025 08:54:04 05/03/2025 09:42:21 Surgical follow-up 810711622 Z47.1 Z96.652 [id number] Health Concerns Section Related Observation LastModified by Organization Detai ls LastModified Time None Recorded Concern Status LastModified by Organization Details LastModified Time None Recorded Payers Encounter Date Sequence Insurance Name Policy Number Policy Almazan Covered Member ID Almazan Member ID Guarantor Name 05/03/2025 1 [facility] MEDICARE ADVANTAGE PLAN (MEDICARE REPLACEMENT HMO) [id number] 04 Poncho Brice [id number] Poncho Brice Notes Date Note Type Note Provider Name and Address Organization Details Recorded Time 05/03/2025 text/html Patient reports increased stiffness/sorene ss in left knee today, feels as though he might have overdone it yesterday, had a plumbing issue at home and had to go up/down the stairs a lot. Has to leave after 30 min due to another obligation. Opal Wilder, PT [address], [place], [address], [facility] 05/03/2025 09:36:30
--- OUTSIDE RECORDS SUMMARY | 2025-05-21 09:37 | XMS_ITS | Continuity of Care Document ---
Author Organization [facility] Address [address] [place] [address] Assessment Encounter Date Assessment Date Assessment LastModified by Organization Details LastModified Time 03/19/2025 03/19/2025 DATE OF SURGERY: 04/15/25 DIAGNOSIS: Left KNEE OSTEOARTHRITIS SURGERY: Left total knee arthroplasty SURGEON: Dr. Jeter HISTORY: The patient presents today at the request of their surgeon for a preoperative history and physical examination, with the goal of risk assessment and medical optimization prior to surgery. This is a 80-year-old male who complains of knee pain related to osteoarthritis. 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 The patient has failed conservative measures, their joint pain is having a significant impact on their daily activities and joint replacement is now planned. PAST MEDICAL HISTORY: Osteoarthritis bilateral knees Hypertension CKD - baseline cr 1.5 GFR 40's, followed by Dr. Eli last seen within the last few months Gout - Big Toe 10 years ago Obesity BMI 35 History of spinal headache PAST SURGICAL HISTORY: Hernia Repair Patient reports previous history of spinal headache and prefers general anesthesia. No other surgical or anesthetic complications, Difficulties with intubation or Family history of anesthesia problems. MEDICATIONS: Losartan 50 mg daily pm Carvedilol 12.5 mg bid Allopurinol 100 mg daily am Multivitamins have been stopped. ALLERGIES: NKDA SOCIAL HISTORY: Tobacco: never Alcohol: Occasional Other substance use: NONE He lives at home with his partner Rocio. 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 Gastrointestinal: No nausea, No vomiting, No Heartburn, No dysphagia, No diarrhea, No abdominal pain, No Black stools or rectal bleeding Genitourinary: No urinary changes Neurologic: No headache, -dizziness, - vertigo Musculoskeletal: No back pain, No Neck pain, + joint pain b/L knee Psychiatric: No mood complaints Skin: No rash or open wounds PHYSICAL EXAM GENERAL: No acute distress, alert. SKIN: Warm, no rashes. HEENT: Supple, no masses. Conjunctiva clear, PERRL. No nasal discharge, hearing intact. Airway: Note Mallampati class I LUNGS: Non l abored respirations. Lungs CTA b/L CARDIOVASCULAR: Regular rhythm, no edema. No R/G/M MUSCULOSKELETAL: Antalgic Gait, using walker, trace edema LE NEUROLOGIC: CN II X II intact. DIAGNOSTIC STUDIES: Orthopedic X-ray: End stage knee osteoarthritis bilaterally. EKG 01/14/25 Ventricular Rate: 82 BPM Atrial Rate: 82 BPM P-R Interval: 144 ms QRS Duration: 74 ms Q-T Interval: 376 ms QTC Calculation(Bazett ): 439 ms P [place]: 56 degrees R [place]: 48 degrees T [place]: 54 degrees Sinus rhythm with occasional Premature ventricular complexes Possible Left atrial enlargement Borderline ECG No previous ECGs available Confirmed by AMI DE LA TORRE ([id number]) on 01/14/2025 5:11:58 PM LABORATORY DATA: CBC: WBC 7.1 H&H 15& 46 Plt 257 BMP: Na 144 K 4.2 BUN/Cr 21/1.5 GFR 47 A1C: 5.0 Coags: PTT 29 PT 11 INR 1 ASSESSMENT AND PLAN: This patient is medically optimized for the planned surgery, see below for details. Specific Anesthesia Concerns: NONE The patient is an ASA Class: III Surgical Procedural Risk: Intermediate CARDIAC EVALUATION: The patient is at overall Low Cardiac Risk of Complications. This meets ACC/AHA guidelines for proceeding to non-cardiac surgery without additional testing. Ischemic Cardiac Risk: - GSCRI Score: 0.5% - FUNCTIONAL CAPACITY: Good - Patient can perform > 4 Mets without cardio-pulmonary complaints Normal ADL, does yard work, car maintenance, a flight of stair with railing, can walk a block with cane or walker. Hypertension: The patient was instructed to continue current anti-hypertensive, including the day of surgery, with the exception of RIMMA-I, ARB, and/or diuretic PULMONARY EVALUATION: Low Risk - Airway: Mallampati Score I - ARISCAT Score: 3 points - The patient has the following intrinsic pulmonary disease: None - Post Operative Recommendations: Early mobilization, Incentive spirometry, Pulmonary toilet, Pain control with Epidurals or nerve blocks if possible. - SCAR risk STOP BANG SCORE 5: High Risk SCAR - Recommendations: Intraoperative SCAR protocols recommended, reduce opiate use as much as possible, monitoring continuous pulse oximetry and capnography. HEMATOLOGIC EVALUATION - Surgical Bleeding Risk: Average: - Recommend Intra-operative IV TXA - Patient Bleeding Risk: Average VTE Prophylaxis/Thromb otic risk: - Joint Replacement Surgery is elevated thrombotic risk - VTE Prophylaxis Recommendations: 4 weeks of post operative Chemical prophylaxis with: Aspirin ENDOCRINE EVALUATION: No Concerns RENAL RISK: Elevated CKD: Patient followed by Dr. Eli with the renal team. Baseline Cr is 1.5, GFR 47. Encouraged good po hydration leading up to surgery, avoid nephrotoxic medications, Adjust all renally-excreted drugs based on eGFR, Resume Medications Carefully, such as ACEi/ARBs and diuretics only when hemodynamically stable, Use balanced crystalloids such as LR, Maintain adequate renal perfusion pressure, Avoid prolonged hypotension (MAP <65 mmHg), Monitor urine output as far as possible, Monitor renal function and electrolytes History of spinal headache: Will defer to anesthesia. Patient would like to discuss possible general vs. spinal option the day of surgery. HEPATIC RISK: Low MEDICATION RECOMMENDATION Summary: Medications to be taken the morning of surgery: Carvedilol Allopurinol Special Medication Recommendations: NONE SUMMARY Alisia/Post Op Medication Recommendations: IV TXA Intraoperatively ASA DVT prophylaxis for 4 weeks postoperatively Pantoprazole for GI protection while on A/C Colace for constipation prophylaxis NO NSAIDs recommended d/t CKD Consider O2/CO2 Monitoring d/t elevated STOP BANG Score Narcotics: Tramadol, Oxycodone DISCHARGE DISPOSITION: Home with services after an overnight stay. POST OP PRESCRIPTIONS PROVIDED BY SURGICAL TEAM UPON DISCHARGE: Tramadol Oxycodone Colace ASA Pantoprazole Zofran POST OP CONTACT: Rocio [phone] Thank you for referring your patient to [facility] for preoperative risk assessment. Please do not hesitate to reach out should you have any questions or if we can be of further service to you or your patients. Warm regards, Pattibrian DEANN Scruggs Total time spent: 55 minutes today reviewing the chart/medical records, speaking with the patient, formulating and discussing the treatment plan, and documenting the findings and encounter. [email or web address] Not available 03/19/2025 09:30:39 Plan of Treatment Reminders Order Date Submit Date Provider Last Modified By Organization Details Last Modified Time Details Appointments None record ed. Lab None record ed. Referral None record ed. Procedures None record ed. Surgeries None record ed. Imaging None record ed. Medication Orders None record ed. Patient TargetsNo targets recorded. Patient InstructionsNo instructions recorded. Reason for Referral None Reported. Medical Equipment None Reported. Allergies No known drug allergies Medications Name Sig [...] t Available Vitals Date Recorded Body height Heart rate Oxygen saturation Body temperature Body mass index (BMI) Body weight Systolic And Diastolic Provider Name and Address Organization Details Last Updated DateTime 5 185.42 cm 83 /min 96 % 97.7 [degF] 33.2 kg/m2 960909. 28 g 157/83 mm[Hg] Marilia Holly [place] ESTER SCRUGGS 08:42:31 Social History None recorded. Functional Status None recorded. Mental Status None recorded. Family History Nothing Reported. Medical History No medical history recorded. Past Encounters Encounter ID Performer Location Encounter Start Date Encounter Closed Date Diagnosis/Indication Diagnosis SNOMED-CT Code Diagnosis ICD10 Code Diagnosis IMO Codes Diagnosis Note 428 Sonu Vernon MD [address] [facility] [place] [address] 03/19/2025 08:31:03 03/19/2025 09:15:12 Preprocedural examination done 0859243286 45627 Z01.818 70999203 Essential hypertension 88442111 I10 04708 Osteoarthr itis of left knee joint 4251887042 10829 M17.12 5616094 Chronic ki dney disease stage 3A 601162961 N18.31 84852058 At [facility] risk of apnea 601897738 Z91.89 43031598 Health Concerns Section Related Observation LastModified by Organization Detai ls LastModified Time None Recorded Concern Status LastModified by Organization Details LastModified Time None Recorded Payers Encounter Date Sequence Insurance Name Policy Number Policy Almazan Covered Member ID Almazan Member ID Guarantor Name 03/19/2025 1 [employer] - MEDICARE ADVANTAGE PLAN (MEDICARE REPLACEMENT HMO) [id number] 04 Poncho Brice [id number] Poncho Brice Notes Date Note Type Note Provider Name and Address Organization Details Recorded Time 03/19/2025 text/html Preop HPIReporte d by Patient Patient presents today for pre-operative evaluation. ESTER SCRUGGS, DEANN-KENNEL HELPER-C [address] [facility] [address], [place], [address], LETICIA SCRUGGS 03/19/2025 09:31:40
--- OUTSIDE RECORDS SUMMARY | 2025-05-21 09:37 | XMS_ITS | Data Portability ---
Author Organization LETICIA LIU, [facility] Address [address], [address] [address] Assessment Encounter Date Assessment Date Assessment LastModified by Organization Details LastModified Time 01/17/2025 01/17/2025 DATE OF SURGERY: 01/30/25 DIAGNOSIS: RIGHT KNEE OSTEOARTHRITIS SURGERY: Right total knee arthroplasty SURGEON: Dr. Jeter HISTORY: The patient presents today at the request of their surgeon for a preoperative history and physical examination, with the goal of risk assessment and medical optimization prior to surgery. This is a 79-year-old male who complains of knee pain related to osteoarthritis. The patient has failed conservative measures, their joint pain is having a significant impact on their daily activities and joint replacement is now planned. PAST MEDICAL HISTORY: Osteoarthritis bilateral knee Hypertension CKD - baseline cr 1.5 GFR 40's, followed by Dr. Eli last seen within the last few months Gout - Big Toe 10 years ago Obesity BMI 35 PAST SURGICAL HISTORY: Hernia Repair Patient denies previous surgical or anesthetic complications, Difficulties with intubation or Family history of anesthesia problems. 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 Ischemic Cardiac Risk: - GSCRI Score: 0.7% - FUNCTIONAL CAPACITY: Good - Patient can perform > 4 Mets without cardio-pulmonary complaints Normal ADL, does yard work, car maintenance, a flight of stair with railing, can walk a block with cane or walker. Hypertension: Controlled- Initial BP high, Repeat Manual was 138/76The patient was instructed to continue current anti-hypertensive, including the day of surgery, with the exception of RIMMA-I, ARB, and/or diuretic PULMONARY EVALUATION: LowRisk - Airway: Mallampati Score I - ARISCAT Score: 3 points - The patient has the following intrinsic pulmonary disease: None - Post Operative Recommendations: Early mobilization, Incentive spirometry, Pulmonary toilet, Pain control with Epidurals or nerve blocks if possible. - SCAR risk STOP BANG SCORE 4: Intermediate Risk SCAR - Recommendations: Intraoperative SCAR protocols [...] Aspirin ENDOCRINE EVALUATION: No Concerns RENAL RISK: Elevated, CKD: Patient followed by Dr. Eli with [...] as possible, Monitor renal function and electrolytes HEPATIC RISK: Low MEDICATION RECOMMENDATION Summary: Medications to be taken the morning of surgery: Carvedilol Allopurinol Special Medication Recommendations: NONE SUMMARY Alisia/Post Op Medication Recommendations: IV TXA Intraoperatively ASA DVT prophylaxis for 4 weeks post operatively Pantoprazole for GI protection while on A/C Colace for constipation prophylaxis NO NSAIDs recommended d/t CKD Consider O2/CO2 Monitoring d/t elevated STOP BANG Score Narcotics: Tramadol, Oxycodone DISCHARGE DISPOSITION: Home with services after an overnight stay. POST OP PRESCRIPTIONS PROVIDED BY SURGICAL TEAM UPON DISCHARGE: Tramadol Oxycodone Colace ASA Pantoprazole POST OP CONTACT: Rocio [phone] Thank you for referring your patient to [facility] for preoperative risk assessment. Please do not hesitate to reach out should you have any questions or if we can be of further service to you or your patients. Warm regards, Ester Scruggs APRN Total time spent: 50 minutes today reviewing the chart/medical records, speaking with the patient, formulating and discussing the treatment plan, and documenting the findings and encounter. 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 The patient has failed [...] He lives at home with his partner Rcoio. He is retired. 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 Please do not hesitate to reach out should you have any questions or if we can be of further service to you or your patients. Warm regards, Ester Scruggs APRN Total time spent: 55 minutes today reviewing [...] No t Available Vitals Date Recorded Body weight Body mass index (BMI) Body height Heart rate Body temperature Oxygen saturation Systolic And Diastolic Provider Name and Address Organization Details Last Updated DateTime 5 152923. 13 g 32.3 kg/m2 185.42 cm 61 /min 97.3 [degF] 98 % 180/98 mm[Hg] GREGOR FONTANA [address], [place], [address], LETICIA SCRUGGS 5 10:17:57 Date Recorded Body height Heart rate Oxygen saturation Body temperature Body mass index (BMI) Body weight Systolic And Diastolic Provider Name and Address Organization Details Last Updated DateTime 5 185.42 cm 83 /min 96 % 97.7 [degF] 33.2 kg/m2 177465. 28 g 157/83 mm[Hg] Marilia Holly LETICIA SCRUGGS 5 08:42:31 Social History None recorded. Functional Status None recorded. Mental Status None recorded. Family History Nothing Reported. Medical History No medical history recorded. 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 [employer] [facility] [address] [place] [address] 01/17/2025 09:54:05 01/17/2025 11:48:04 Preprocedural examination done 1495685234 97901 Z01.818 122941 Osteoarthr itis of left knee joint 9689677255 68726 M17.12 7886981 Essential hypertension 90268915 I10 64386 Chronic ki dney disease stage 3A 245770893 N18.31 [id number] Sonu Vernon MD [facility] [address] [place] [address] 03/19/2025 08:31:03 03/19/2025 09:15:12 Preprocedural examination done 2732999147 59204 Z01.818 12986484 Essential hypertension 04767686 I10 83024 Osteoarthr itis of left knee joint 2113195576 59093 M17.12 2301015 Chronic ki dney disease stage 3A 612315976 N18.31 13267087 At [facility] risk of apnea 474515194 Z91.89 79287559 Health Concerns Section Related Observation LastModified by Organization Detai ls LastModified Time None Recorded Concern Status LastModified by Organization Details LastModified Time None Recorded Advance Directives Directive None Recorded Payers Insurance Date Sequence Insurance Name Policy Number Policy Almazan Covered Member ID Almazan Member ID Guarantor Name 03/18/[address] [place] [address] MEDICARE ADVANTAGE PLAN (MEDICARE REPLACEMENT HMO) [id number] 04 Poncho Brice [id number] Poncho Brice Notes Date Note Type Note Provider Name and Address Organization Details Recorded Time 01/17/2025 text/html Preop HPIReporte d by Patient Patient presents today for pre-operative evaluation. GREGOR VILLALPANDO [address], [place], [address], [facility] - ESTER SCRUGGS 01/17/2025 11:08:15 03/19/2025 text/html Preop HPIReporte d by Patient Patient presents today for pre-operative evaluation. GAVI SALDIVAR-C [address], [place], [address], [facility] - ESTER SCRUGGS 03/19/2025 09:31:40
[2025-05-21 09:43] LABS: Appearance Urine Clear; Glucose Urine UA Negative (Negative); PH 5.5 (5.0-9.0); Specific Gravity - Urine 1.015 (1.005-1.025); UMIC TRIGGER UA YES
[2025-05-21 10:02] LABS: Albumin Level 3.6 g/dL (3.5-5.0); Anion Gap 10 (12-20); Blood Urea Nitrogen 20 mg/dL (9-16); Calcium 9.6 mg/dL (8.4-10.2); Carbon Dioxide 29 mmol/L (22-29); Chloride 109 mmol/L (96-108); Potassium 4.6 mmol/L (3.3-5.1); Sodium 143 mmol/L (135-145)
[2025-05-21 10:29] LABS: Microalbum/Creatinine Ratio Ur 281.7 ug/mg cr (<30); Protein/Creatinine Ratio, Ur 0.42 (<0.2); Total Protein Urine Random 43 mg/dL (<12)
== END 2025-05-21 08:59 | disposition home or self-care (01) ==
LOC: HO.LAB 08:58
PROVIDERS: PCP Internal Medicine; Visit Provider Internal Medicine Nephrology
DX: I12.9 Hypertensive chronic kidney disease with stage 1 through stage 4 chronic kidney disease, or unspecified chronic kidney disease (principal); N18.32 Chronic kidney disease, stage 3b
CPT/HCPCS: 36415; 80069; 81001; 82043; 82570; 84156